=== PATIENT | female | born 1955 | race Caucasian/White ===

== ENCOUNTER → 2016-06-18 | Outpatient (CLI) | payer MEDICARE, OTHER ==
[~2016-06-18] MED LIST: ASPI1TAB PO; ATOR1TAB21 PO; CARV6.25 PO; CLOP75TA2 PO; FLUO20CA9 PO; LEVO75TA4 PO; LISI-542 PO; NEUR300C PO; RANO5TAB PO; TOPA100T8 PO; ZANA4TAB PO; ZONI25CA2 PO
--- NOTE | 2016-06-18 10:28 | REP ---
CT HEAD WITHOUT CONTRAST: HISTORY: Syrinx. Areas of decreased attentuation are present in the periventricular white matter. This represents small vessel ischemic disease. There is no intraparenchymal hemorrhage, mass, or midline shift. The ventricular system and cortical sulci as well as subarachnoid space in the posterior fossa are dilated consistent with mild volume loss. There is no extracerebral collection. The visualized sinuses are clear. The mastoid air cells are under developed. IMPRESSION: 1. Small vessel ischemic disease. 2. Mild volume loss. Signed by Kb Garcia MD 06/18/2016 10:38 A
== END ==
LOC: M RAD 09:36
PROVIDERS: ATTEND Neurological Surgery
DX: G95.0 Syringomyelia and syringobulbia (principal); I67.82 Cerebral ischemia; G31.9 Degenerative disease of nervous system, unspecified

== ENCOUNTER → 2016-06-18 | Outpatient (CLI) | payer MEDICARE, OTHER ==
[2016-06-18 11:07] LABS: BASO % 0.6 % (0.0-1.0); EOS # 0.3 K/mm3 (0.0-0.50); LARGE UNSTAINED CELL # 0.1 K/mm3 (0.0-0.4); LARGE UNSTAINED CELL % 1.9 % (0.0-4.0); LYMPH # 1.3 K/mm3 (1.5-4.5); LYMPH % 18.4 % (24.0-44.0); MEAN CORPUSCULAR HEMOGLOBIN 29.1 pg (27.0-33.0); MEAN CORPUSCULAR HGB CONC 32.8 g/dl (32.0-36.5); MEAN CORPUSCULAR VOLUME 88.9 fl (80.0-96.0); MONO # 0.3 K/mm3 (0.0-0.8); MONO % 3.6 % (0.0-5.0); NEUTROPHILS # 5.1 K/mm3 (1.8-7.7); NEUTROPHILS % 71.5 % (36.0-66.0); PLATELET COUNT, AUTOMATED 187 k/mm3 (150-450); RED CELL DISTRIBUTION WIDTH 12.9 % (11.5-14.5); WHITE BLOOD COUNT 7.2 K/mm3 (4.0-10.0)
[2016-06-18 11:43] LABS: ALBUMIN 3.6 GM/DL (3.2-5.2); ALBUMIN/GLOBULIN RATIO 1.06 (1.00-1.93); BILIRUBIN,TOTAL 0.4 MG/DL (0.2-1.0); CREATININE FOR GFR 1.14 MG/DL (0.55-1.02); GLOMERULAR FILTRATION RATE 51.2 (>45); POTASSIUM SERUM 4.1 MEQ/L (3.5-5.1); THYROXINE (T4) 8.5 UG/DL (4.5-12.0)
== END ==
LOC: M LAB 10:30
PROVIDERS: ATTEND Family Medicine
DX: I15.0 Renovascular hypertension (principal); E78.2 Mixed hyperlipidemia; E03.9 Hypothyroidism, unspecified; G95.0 Syringomyelia and syringobulbia; I67.82 Cerebral ischemia; G31.9 Degenerative disease of nervous system, unspecified

== ENCOUNTER 2016-07-17 22:48 | Emergency (ER) | payer MEDICARE, OTHER ==
[2016-07-17 23:27] LABS: BASO # 0.1 K/mm3 (0.0-0.2); BASO % 0.7 % (0.0-1.0); EOS # 0.2 K/mm3 (0.0-0.50); EOS % 2.3 % (0.0-3.0); LARGE UNSTAINED CELL # 0.2 K/mm3 (0.0-0.4); LARGE UNSTAINED CELL % 2.6 % (0.0-4.0); LYMPH # 1.7 K/mm3 (1.5-4.5); LYMPH % 18.1 % (24.0-44.0); MEAN CORPUSCULAR HEMOGLOBIN 28.6 pg (27.0-33.0); MEAN CORPUSCULAR HGB CONC 32.1 g/dl (32.0-36.5); MEAN CORPUSCULAR VOLUME 89.2 fl (80.0-96.0); MONO # 0.5 K/mm3 (0.0-0.8); MONO % 5.4 % (0.0-5.0); NEUTROPHILS # 6.7 K/mm3 (1.8-7.7); NEUTROPHILS % 70.9 % (36.0-66.0); PLATELET COUNT, AUTOMATED 212 k/mm3 (150-450); WHITE BLOOD COUNT 9.5 K/mm3 (4.0-10.0)
[2016-07-17] MEDS ORDERED: MORPHINE 4 MG/ML 1ML SYRINGE As Ordered ONE (23:35)
[2016-07-17] MEDS ORDERED: ONDANSETRON 4MG/2ML VIAL (J2405) As Ordered ONE (23:35)
[2016-07-17 23:39] LABS: ANION GAP 5 MEQ/L (8-16); BLOOD UREA NITROGEN 19 MG/DL (7-18); CALCIUM LEVEL 9.1 MG/DL (8.8-10.2); CARBON DIOXIDE LEVEL 34 MEQ/L (21-32); CHLORIDE LEVEL 104 MEQ/L (98-107); CREATININE FOR GFR 1.17 MG/DL (0.55-1.02); GLOMERULAR FILTRATION RATE 49.7 (>45); GLUCOSE, FASTING 136 MG/DL (80-110); POTASSIUM SERUM 4.3 MEQ/L (3.5-5.1); SODIUM LEVEL 143 MEQ/L (136-145)
--- NOTE | 2016-07-18 00:10 | REPUSA ---
Clinical history: Pain, swelling. Findings: The left common femoral, superficial femoral, popliteal, and other deep venous structures c ompress normally and demonstrate normal color Doppler flow. Normal venous waveforms with augmentation are seen. Impression: No evidence of deep vein thrombosis in the left femoral popliteal venous system.
[2016-07-18 00:30] LABS: VENOUS BASE EXCESS 3.9 (-2.0-2.0); VENOUS O2 SATURATION 57.6 % (60.0-80.0); VENOUS PARTIAL PRESSURE CO2 60.8 mmHg (38.0-50.0); VENOUS STANDARD HCO3 26.9 MEQ/L; VENOUS TOTAL CO2 33.3 MEQ/L (24.0-28.0)
--- NOTE | 2016-07-18 06:36 | EDDOCDS ---
Physician Documentation [facility] Name: Yasmin Calderón Age: 61 yrs Sex: Female : 1955 Arrival Date: 07/17/2016 Time: 22:48 Bed OBSERVATION Private MD: Disposition: 07/18/16 06:07 Discharged to Home/Self Care. Impression: Chest pain, unspecified. - Condition is Stable. - Discharge Instructions: Nonspecific Chest Pain, Chest Wall Pain, Nonspecific Chest Pain, [id number]. - Medication Reconciliation, Local Pharmacy Hours form. - Follow up: Fabian Alcala MD; When: 2 - 3 days; Reason: Continuance of care. - Problem is an acute exacerbation. - Symptoms have improved. Historical: - Allergies: no known allergies; - Home Meds: 1. aspirin 81 mg Oral tab 1 tab once daily 2. levothyroxine 75 mcg Oral tab 1 tab once daily 3. Neurontin 300 mg Oral cap 1 cap 3 times per day 4. atorvastatin 20 mg oral tab 1 tab once daily 5. lisinopril 20 mg oral tab 1 tab once daily 6. carvedilol 6.25 mg oral tab 1 tab 2 times per day 7. ranolazine 500 mg oral Tb12 1 tab 2 times per day 8. furosemide 20 mg Oral tab 1 tab once daily 9. fluoxetine 40 mg oral cap 1 cap once daily 10. amitriptyline 50 mg Oral tab 1 tab once daily 60 mg once a day/ 50 mg and a 10mg 11. Elavil 5 mg daily 12. clopidogrel 75 mg oral tab 1 tab once daily 13. hydroxyzine HCl 50 mg Oral tab twice a day 14. Tobrex 0.3 % Opht oint 2 times per day - PMHx: back pain; Hypertension; Hypothyroidism; CT; Migraine Headaches; Blowout fracture of right eye; - PSHx: Cardiac stents; - Social history: Smoking status: Patient states was never smoker of tobacco. No barriers to communication noted, The patient speaks fluent [place], Speaks appropriately for age. - Family history: Not pertinent. - : The pt / caregiver states he / she is on anticoagulants: Plavix. Home medication list is obtained from the patient. - Exposure Risk Screening:: None identified. Vital Signs: 07/17 23:01 BP 166 / 100; Pulse 88; Resp 16; Pulse Ox 96% on 2 lpm NC; Weight 94.8 kg / 209 lbs ld5 (R); Height 5 ft. 9 in. (175.26 cm) (R); Pain 6/10; 23:11 BP 154 / 89 (auto/); af2 23:12 Pulse 84 MON; Resp 18 S; Pulse Ox 97% on 2 lpm NC; af2 23:26 BP 156 / 87 (auto/); af2 23:27 Pulse 80 MON; Resp 18 S; Pulse Ox 97% on 2 lpm NC; af2 23:41 BP 140 / 78 (auto/); af2 23:43 Pulse 84 MON; Resp 18 S; Pulse Ox 96% on 2 lpm NC; af2 23:52 Temp 97.9(TE); af2 23:56 BP 143 / 73 (auto/); af2 23:57 Pulse 86 MON; Resp 18 S; Pulse Ox 90% on 2 lpm NC; af2 07/18 00:11 BP 143 / 78 (auto/); af2 00:12 Pulse 86 MON; Resp 18 S; Pulse Ox 95% on 2 lpm NC; af2 00:26 BP 140 / 74 (auto/); mlc 00:27 Pulse 84 MON; Resp 18 S; Pulse Ox 98% on R/A; mlc 00:41 BP 138 / 76 (auto/); mlc 00:42 Pulse 84 MON; Resp 18 S; Pulse Ox 96% on R/A; mlc 01:23 BP 114 / 74 (auto/); mlc 01:24 Pulse 82 MON; Resp 18 S; Pulse Ox 92% on R/A; mlc 03:38 BP 111 / 56 (auto/); af2 03:39 Pulse 86 MON; Resp 18 S; Pulse Ox 98% on R/A; af2 04:08 BP 116 / 67 (auto/); af2 04:09 Pulse 84 MON; Resp 18 S; Pulse Ox 99% on R/A; af2 04:38 BP 99 / 56 (auto/); af2 04:38 Pulse 86 MON; Resp 18 S; Pulse Ox 97% on R/A; af2 05:08 BP 106 / 64 (auto/); af2 05:08 Pulse 82 MON; Resp 18 S; Pulse Ox 98% on R/A; af2 05:38 BP 114 / 67 (auto/); af2 05:38 Pulse 80 MON; Resp 18 S; Pulse Ox 100% on R/A; af2 06:08 BP 121 / 73 (auto/); af2 06:09 Pulse 86 MON; Resp 18 S; Pulse Ox 97% on R/A; af2 06:27 BP 116 / 18; Pulse 84; Resp 18; Temp 97.0(O); Pulse Ox 99% on 2.0 lpm NC; Pain 0/10; kb5 07/17 23:01 Body Mass Index 30.86 (94.80 kg, 175.26 cm) ld5 MDM: 07/17 22:55 ECG WITH READING ER PHYS+CARDIAG ordered. EDMS 23:21 Manager Hris/Pulse Ox/q 30 min VS ordered. mm11 23:21 IV Saline Lock ordered. mm11 23:21 Oxygen at 4L/Min NC or Home dosage ordered. mm11 23:21 Rhythm Strip to chart ordered. mm11 23:21 Undress patient appropriately for examination ordered. mm11 23:21 morphine 4 mg IVP every 30 minutes; Document pain score/vitals after each dose (Hold if mm11 SBP < 90mmHg) x2 ordered. 23:21 Ondansetron 4 mg IVP once ordered. mm11 23:22 B-Type Natiuretic Peptide Ordered. EDMS 23:22 Basic Metabolic Profile Ordered. EDMS 23:22 CBC with Diff Ordered. EDMS 23:22 Cardiac Injury Profile Ordered. EDMS 23:22 Troponin Ordered. EDMS 23:22 portable chest Ordered. EDMS 23:24 DVT US Lower Ordered. EDMS 23:26 The patient was assigned to Observation Status due to uncertainty of mm11 diagnosis/disposition, and remained under my care. 23:49 Basic Metabolic Profile Reviewed. mm11 23:49 CBC with Diff Reviewed. mm11 23:49 B-Type Natiuretic Peptide Reviewed. mm11 23:49 Cardiac Injury Profile Reviewed. mm11 23:49 Troponin Reviewed. mm11 23:50 Venous Blood Gas (large pea green tube on ice) Ordered. EDMS 02 00:33 Venous Blood Gas (large pea green tube on ice) Reviewed. mm11 00:34 Financial registration complete. hs2 00:45 [facility] Payment Agreement was scanned into [email or web address] and attached to record. hs2 02:45 Repeat EKG (put time details section) ordered. mm11 02:45 Redraw CIP &Troponin (put time in details section) ordered. mm11 02:48 Redraw CIP &Troponin (put time in details section) complete. ml3 02:48 Repeat EKG (put time details section) complete. ml3 02:48 CARDIAC MARKER PANEL Ordered. EDMS 02:49 ECG WITH READING ER PHYS ordered. EDMS 05:39 CARDIAC MARKER PANEL Reviewed. mm11 05:39 DVT US Lower Reviewed. mm11 Administered Medications: 07/17 23:41 Drug: morphine 4 mg [morphine 4 mg/mL intravenous cartridge (1 mL)] Route: IVP; Site: af2 right antecubital; 07/18 00:21 Follow up: Response: Pain is decreased af2 07/17 23:42 Drug: Ondansetron 4 mg [ondansetron HCl 2 mg/mL intravenous solution (2 mL)] Route: af2 IVP; Site: right antecubital; 07/18 00:21 Follow up: Response: Pain is decreased af2 Signatures: Dispatcher [employer] EDMS Mason Ruby, Skull Splitter Unit ml3 Juarez Cooney, DO mm11 Amanda Beckman,RN RN ld5 Kellen Duncan RN RN af2 Gricelda Willoughby, Reg Reg hs2 The chart was reviewed and I authenticate all verbal orders and agree with the evaluation and treatment provided.Attachments: 00:45 [facility] Payment Agreement hs2 MTDD
--- NOTE | 2016-07-18 06:36 | EDDOCDS ---
Nurse's Notes [facility] Name: Yasmin Calderón Age: 61 yrs Sex: Female : 1955 Arrival Date: 07/17/2016 Time: 22:48 Bed OBSERVATION Private MD: Diagnosis: Chest pain, unspecified Presentation: 07/17 22:56 Presenting complaint: EMS states: Sudden onset of right-sided chest pain radiating to ld5 left side of chest while at rest. 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 Pain relieved after 2 nitro given by EMS. Pt reports some shortness of breath but states that is normal at nighttime. Aspirin was taken PACKING CLERK. Suicide/Homicide risk assessment- the patient denies having any suicidal and/or homicidal ideations and does not present with any other emotional, behavioral or mental health complaints. 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 Transition of care: patient was not received from another setting of care. Care prior to arrival: Medications administered prior to arrival: 324 mg of ASA, 2 nitros IV initiated. Glucose check. 145 Oxygen administered by EMS. 22:56 Acuity: RADHA Level 2 ld5 22:56 Method Of Arrival: Ambulance ld5 07/18 06:34 Adult Sepsis Screening: The patient does not have new or worsening altered mentation. af2 Patient's respiratory rate is less than 22. Systolic blood pressure is greater than 100. Patient has a qSOFA score of 0- Negative Sepsis Screen. Triage Assessment: 07/17 23:01 General: Appears in no apparent distress. Pain: Location: forehead Pain currently is 6 ld5 out of 10 on a pain scale. HIV screening NA for this visit Offered previously. Neurological: Level of Consciousness is awake, alert. Cardiovascular: Chest pain none currently, resolved after 2 nitro given en route. Respiratory: Airway is patent Respiratory effort is even, unlabored. GI: Reports nausea. 07/18 06:34 Cardiovascular: Chest pain is denied episodes. af2 Historical: - Allergies: no known allergies; - Home Meds: 1. aspirin 81 mg Oral tab 1 tab once daily 2. levothyroxine 75 mcg Oral tab 1 tab once daily 3. Neurontin 300 mg Oral cap 1 cap 3 times per day 4. atorvastatin 20 mg oral tab 1 tab once daily 5. lisinopril 20 mg oral tab 1 tab once daily 6. carvedilol 6.25 mg oral tab 1 tab 2 times per day 7. ranolazine 500 mg oral Tb12 1 tab 2 times per day 8. furosemide 20 mg Oral tab 1 tab once daily 9. fluoxetine 40 mg oral cap 1 cap once daily 10. amitriptyline 50 mg Oral tab 1 tab once daily 60 mg once a day/ 50 mg and a 10mg 11. Elavil 5 mg daily 12. clopidogrel 75 mg oral tab 1 tab once daily 13. hydroxyzine HCl 50 mg Oral tab twice a day 14. Tobrex 0.3 % Opht oint 2 times per day - PMHx: back pain; Hypertension; Hypothyroidism; ND; Migraine Headaches; Blowout fracture of right eye; - PSHx: Cardiac stents; - Social history: Smoking status: Patient states was never smoker of tobacco. No barriers to communication noted, The patient speaks fluent Tuvaluan, Speaks appropriately for age. - Family history: Not pertinent. - : The pt / caregiver states he / she is on anticoagulants: Plavix. Home medication list is obtained from the patient. - Exposure Risk Screening:: None identified. Screenin/09 23:27 Screening information is obtained from the patient. Fall risk: At risk due to age, The af2 following interventions are performed due to a positive Fall Risk Screen: Fall Risk is added to Special Handling on the patient Summary Screen. A Fall Risk Bracelet was applied to the patient. Side Rails are placed in the up position. A Call L[place] is given with instruction to call for help when getting out of bed. Assistance ADL's: requires no assistance with activities of daily living. Abuse/DV Screen: The patient / caregiver reports he/she is: not in a situation that causes fear, pain or injury. Nutritional screening: No deficits noted. Advance Directives: Currently, there is no health care proxy. home support is adequate. Assessment: 23:28 General: Appears in no apparent distress, Behavior is cooperative. Neurological: Level af2 of Consciousness is awake, alert, obeys commands, Oriented to person, place, time. Cardiovascular: Capillary refill < 3 seconds in bilateral fingers Heart tones S1 S2 present Pulses are 2+ in right radial artery and left radial artery Rhythm is sinus rhythm No ectopy. Chest pain is described as mild, is located in chest wall began 2 hours prior to arrival. Respiratory: Airway is patent Respiratory effort is even, unlabored, Respiratory pattern is regular, symmetrical, Breath sounds are diminished bilaterally. Derm: Skin is normal. 07/18 00:30 General: Appears in no apparent distress, Behavior is cooperative, pt resting quietly af2 with eyes closed, resp easy and unlabored. reports chest pain tolerable, 5/10.. Cardiovascular: Rhythm is sinus rhythm No ectopy. Respiratory: Airway is patent Respiratory effort is even, unlabored. Derm: Skin is normal. 01:46 General: Appears in no apparent distress, Behavior is cooperative, pt resting quietly af2 on stretcher. offers no complaints. . Neurological: Level of Consciousness is awake, alert, obeys commands, Oriented to person, place, time. Cardiovascular: Rhythm is sinus rhythm No ectopy. Respiratory: Airway is patent Respiratory effort is even, unlabored. Derm: Skin is normal. 02:56 General: Appears in no apparent distress, Behavior is appropriate for age, cooperative. mlc Neurological: Level of Consciousness is awake, alert, obeys commands, Oriented to person, place, time. Cardiovascular: Rhythm is sinus rhythm No ectopy. Respiratory: Airway is patent Respiratory effort is even, unlabored. Derm: Skin is normal. 03:41 General: pt resting quietly on stretcher. resp easy, unlabored. will continue to af2 monitor. . Cardiovascular: Rhythm is sinus rhythm. Derm: Skin is pink, warm & dry. 04:45 General: Appears in no apparent distress, Behavior is appropriate for age, cooperative. af2 Neurological: Level of Consciousness is awake, alert, obeys commands, Oriented to person, place, time. Cardiovascular: Rhythm is sinus rhythm No ectopy. Respiratory: Airway is patent Respiratory effort is even, unlabored. Derm: Skin is normal. 06:00 General: Appears in no apparent distress, Behavior is appropriate for age, cooperative. af2 Neurological: Level of Consciousness is awake, alert, obeys commands, Oriented to person, place, time. Respiratory: Airway is patent Respiratory effort is even, unlabored. Derm: Skin is pink, warm & dry. Vital Signs: 07/17 23:01 BP 166 / 100; Pulse 88; Resp 16; Pulse Ox 96% on 2 lpm NC; Weight 94.8 kg (R); Height 5 ld5 ft. 9 in. (175.26 cm) (R); Pain 6/10; 23:11 BP 154 / 89 (auto/); af2 23:12 Pulse 84 MON; Resp 18 S; Pulse Ox 97% on 2 lpm NC; af2 23:26 BP 156 / 87 (auto/); af2 23:27 Pulse 80 MON; Resp 18 S; Pulse Ox 97% on 2 lpm NC; af2 23:41 BP 140 / 78 (auto/); af2 23:43 Pulse 84 MON; Resp 18 S; Pulse Ox 96% on 2 lpm NC; af2 23:52 Temp 97.9(TE); af2 23:56 BP 143 / 73 (auto/); af2 23:57 Pulse 86 MON; Resp 18 S; Pulse Ox 90% on 2 lpm NC; af2 07/18 00:11 BP 143 / 78 (auto/); af2 00:12 Pulse 86 MON; Resp 18 S; Pulse Ox 95% on 2 lpm NC; af2 00:26 BP 140 / 74 (auto/); mlc 00:27 Pulse 84 MON; Resp 18 S; Pulse Ox 98% on R/A; mlc 00:41 BP 138 / 76 (auto/); mlc 00:42 Pulse 84 MON; Resp 18 S; Pulse Ox 96% on R/A; mlc 01:23 BP 114 / 74 (auto/); mlc 01:24 Pulse 82 MON; Resp 18 S; Pulse Ox 92% on R/A; mlc 03:38 BP 111 / 56 (auto/); af2 03:39 Pulse 86 MON; Resp 18 S; Pulse Ox 98% on R/A; af2 04:08 BP 116 / 67 (auto/); af2 04:09 Pulse 84 MON; Resp 18 S; Pulse Ox 99% on R/A; af2 04:38 BP 99 / 56 (auto/); af2 04:38 Pulse 86 MON; Resp 18 S; Pulse Ox 97% on R/A; af2 05:08 BP 106 / 64 (auto/); af2 05:08 Pulse 82 MON; Resp 18 S; Pulse Ox 98% on R/A; af2 05:38 BP 114 / 67 (auto/); af2 05:38 Pulse 80 MON; Resp 18 S; Pulse Ox 100% on R/A; af2 06:08 BP 121 / 73 (auto/); af2 06:09 Pulse 86 MON; Resp 18 S; Pulse Ox 97% on R/A; af2 06:27 BP 116 / 18; Pulse 84; Resp 18; Temp 97.0(O); Pulse Ox 99% on 2.0 lpm NC; Pain 0/10; kb5 07/17 23:01 Body Mass Index 30.86 (94.80 kg, 175.26 cm) ld5 Vitals: 07/17 23:01 Log In Time N/A - ambulance arrival. ld5 ED Course: 22:49 Patient visited by Mason Ruby, Caving Guide. ml3 22:49 Patient moved to Waiting ml3 22:50 Kellen Duncan RN is Primary Nurse. ml3 22:50 Patient moved to 14 ml3 23:00 Triage Initiated ld5 23:04 Patient visited by Amanda Beckman RN. ld5 23:07 Juarez Cooney DO is Attending Physician. mm11 23:09 Patient visited by Kiya Yadav PCA. cln 23:09 EKG done. (by ED staff). Reviewed by Juarez Cooney DO. cln 23:12 Patient visited by Kellen Duncan RN. af2 23:19 Patient visited by Juarez Cooney DO. mm11 23:26 Patient moved to OBSERVATION mm11 23:27 The patient / caregiver is instructed regarding the plan of care and ED course. Patient af2 has correct armband on for positive identification. Placed in gown. balance engineer on. Pulse ox on. NIBP on. 23:27 Inserted saline lock: 18 gauge in right antecubital area and blood collected. The af2 patient tolerated the procedure well. No procedures done that require assistance. 23:53 Patient visited by Kellen Duncan RN. af2 07/18 00:21 Venous Blood Gas (large pea green tube on ice) Sent. af2 00:24 Patient visited by Kellen Duncan RN. af2 00:41 DVT US Lower Returned. EDMS 00:45 DC-EM Payment Agreement was scanned into [employer] and attached to record. hs2 01:24 Patient visited by Kellen Duncan RN. af2 01:47 Patient visited by Kellen Duncan RN. af2 02:58 Patient visited by Delma Perez RN. mlc 03:41 Patient visited by Kellen Duncan RN. af2 05:03 Patient visited by Kiya Yadav PCA. cln 05:03 EKG done. (by ED staff). Reviewed by Juarez Cooney DO. cln 06:06 Fabian Alcala MD is Referral Physician. mm11 06:28 Patient visited by Kellen Duncan RN. af2 06:28 Patient visited by Toño Patel PCA. kb5 Administered Medications: 07/17 23:41 Drug: morphine 4 mg [morphine 4 mg/mL intravenous cartridge (1 mL)] Route: IVP; Site: af2 right antecubital; 07/18 00:21 Follow up: Response: Pain is decreased af2 07/17 23:42 Drug: Ondansetron 4 mg [ondansetron HCl 2 mg/mL intravenous solution (2 mL)] Route: af2 IVP; Site: right antecubital; 07/18 00:21 Follow up: Response: Pain is decreased af2 Order Results: Lab Order: B-Type Natiuretic Peptide; SPEC'M 07/17/16 23:00 Test: BRAIN NATRIURETIC PEPTIDE; Value: 22.3; Range: <100; Units: PG/ML; Status: F Lab Order: Basic Metabolic Profile; SPEC'M 07/17/16 23:00 Test: GLUCOSE, FASTING; Value: 136; Range: 80-110; Abnormal: Above high normal; Units: MG/DL; Status: F Test: BLOOD UREA NITROGEN; Value: 19; Range: 7-18; Abnormal: Above high normal; Units: MG/DL; Status: F Test: CREATININE FOR GFR; Value: 1.17; Range: 0.55-1.02; Abnormal: Above high normal; Units: MG/DL; Status: F Test: GLOMERULAR FILTRATION RATE; Value: 49.7; Range: >45; Status: F Test: SODIUM LEVEL; Value: 143; Range: 136-145; Units: MEQ/L; Status: F Test: POTASSIUM SERUM; Value: 4.3; Range: 3.5-5.1; Units: MEQ/L; Status: F Test: CHLORIDE LEVEL; Value: 104; Range: 98-107; Units: MEQ/L; Status: F Test: CARBON DIOXIDE LEVEL; Value: 34; Range: 21-32; Abnormal: Above high normal; Units: MEQ/L; Status: F Test: ANION GAP; Value: 5; Range: 8-16; Abnormal: Below low normal; Units: MEQ/L; Status: F Test: CALCIUM LEVEL; Value: 9.1; Range: 8.8-10.2; Units: MG/DL; Status: F Test Note: ; Units are mL/min/1.73 m2 Chronic Kidney Disease Staging per NKF: Stage I & II GFR >=60 Normal to Mildly Decreased Stage III GFR 30-59 Moderately Decreased Stage IV GFR 15-29 Severely Decreased Stage V GFR <15 Very Little GFR Left ESRD GFR <15 on WARDROBE MISTRESS Lab Order: CBC with Diff; SPEC'M 07/17/16 23:00 Test: WHITE BLOOD COUNT; Value: 9.5; Range: 4.0-10.0; Units: K/mm3; Status: F Test: RED BLOOD COUNT; Value: 4.70; Range: 4.00-5.40; Units: M/mm3; Status: F Test: HEMOGLOBIN; Value: 13.5; Range: 12.0-16.0; Units: g/dl; Status: F Test: HEMATOCRIT; Value: 42.0; Range: 36.0-47.0; Units: %; Status: F Test: MEAN CORPUSCULAR VOLUME; Value: 89.2; Range: 80.0-96.0; Units: fl; Status: F Test: MEAN CORPUSCULAR HEMOGLOBIN; Value: 28.6; Range: 27.0-33.0; Units: pg; Status: F Test: MEAN CORPUSCULAR HGB CONC; Value: 32.1; Range: 32.0-36.5; Units: g/dl; Status: F Test: RED CELL DISTRIBUTION WIDTH; Value: 13.0; Range: 11.5-14.5; Units: %; Status: F Test: PLATELET COUNT, AUTOMATED; Value: 212; Range: 150-450; Units: k/mm3; Status: F Test: NEUTROPHILS %; Value: 70.9; Range: 36.0-66.0; Abnormal: Above high normal; Units: %; Status: F Test: LYMPH %; Value: 18.1; Range: 24.0-44.0; Abnormal: Below low normal; Units: %; Status: F Test: MONO %; Value: 5.4; Range: 0.0-5.0; Abnormal: Above high normal; Units: %; Status: F Test: EOS %; Value: 2.3; Range: 0.0-3.0; Units: %; Status: F Test: BASO %; Value: 0.7; Range: 0.0-1.0; Units: %; Status: F Test: LARGE UNSTAINED CELL %; Value: 2.6; Range: 0.0-4.0; Units: %; Status: F Test: NEUTROPHILS #; Value: 6.7; Range: 1.8-7.7; Units: K/mm3; Status: F Test: LYMPH #; Value: 1.7; Range: 1.5-4.5; Units: K/mm3; Status: F Test: MONO #; Value: 0.5; Range: 0.0-0.8; Units: K/mm3; Status: F Test: EOS #; Value: 0.2; Range: 0.0-0.50; Units: K/mm3; Status: F Test: BASO #; Value: 0.1; Range: 0.0-0.2; Units: K/mm3; Status: F Test: LARGE UNSTAINED CELL #; Value: 0.2; Range: 0.0-0.4; Units: K/mm3; Status: F Lab Order: Cardiac Injury Profile; SPEC'M 07/17/16 23:00 Test: CPK CREATINE PHOSPHOKINASE; Value: 109; Range: 26-192; Units: U/L; Status: F Test: CK-MB VALUE MASS; Value: 1.9; Range: 0.0-3.6; Units: NG/ML; Status: F Test: MB/CK RELATIVE INDEX; Value: 1.74; Range: < OR =4; Status: F Test Note: ; DIAGNOSIS CRITERIA MMB ng/ml Relative Index (RI) NON-AMI < or = 5 N/A BLANCO ZONE > 5 < or = 4 AMI > 5 > 4 Lab Order: Troponin; SPEC'M 07/17/16 23:00 Test: TROPONIN I; Value: < 0.02; Range: < 0.10; Units: NG/ML; Status: F Test Note: ; Troponin I Reference Interval for Siemens This Week In LOCI: 99th Percentile= 0.00-0.045 ng/ml Risk Stratification: <= 0.10 ng/ml Decreased Risk for Adverse Clinical Events. 0.10-1.50 ng/ml Increased Risk for Adverse Clinical Events. Evaluation of additional criterion and/or repeat testing in 2-6 hours is suggested to rule out myocardial damage. >= 1.50 ng/ml Indicative of Myocardial Injury. Lab Order: Venous Blood Gas (large pea green tube on ice); [facility]' 07/18/16 00:18 Test: VENOUS PH; Value: 7.332; Range: 7.330-7.430; Units: UNITS; Status: F Test: VENOUS PARTIAL PRESSURE CO2; Value: 60.8; Range: 38.0-50.0; Abnormal: Above high normal; Units: mmHg; Status: F Test: VENOUS PARTIAL PRESSURE O2; Value: 33.0; Range: 30.0-50.0; Units: mmHg; Status: F Test: VENOUS TOTAL CO2; Value: 33.3; Range: 24.0-28.0; Abnormal: Above high normal; Units: MEQ/L; Status: F Test: VENOUS HCO3; Value: 31.5; Range: 23.0-27.0; Abnormal: Above high normal; Units: MEQ/L; Status: F Test: VENOUS BASE EXCESS; Value: 3.9; Range: -2.0-2.0; Abnormal: Above high normal; Status: F Test: VENOUS STANDARD HCO3; Value: 26.9; Units: MEQ/L; Status: F Test: VENOUS O2 SATURATION; Value: 57.6; Range: 60.0-80.0; Abnormal: Below low normal; Units: %; Status: F Lab Order: CARDIAC MARKER PANEL; [facility]' 07/18/16 05:03 Test: CPK CREATINE PHOSPHOKINASE; Value: 79; Range: 26-192; Units: U/L; Status: F Test: CK-MB VALUE MASS; Value: 2.3; Range: 0.0-3.6; Units: NG/ML; Status: F Test: MB/CK RELATIVE INDEX; Value: 2.91; Range: < OR =4; Status: F Test: TROPONIN I; Value: < 0.02; Range: < 0.10; Units: NG/ML; Status: F Test Note: ; DIAGNOSIS CRITERIA MMB ng/ml Relative Index (RI) NON-AMI < or = 5 N/A BLANCO ZONE > 5 < or = 4 AMI > 5 > 4 Radiology Order: DVT US Lower Test: DVT US Lower REASON FOR EXAMINATION: Deformity/Swelling; ; Clinical history: Pain, swelling.; Findings: The left common femoral, superficial femoral, popliteal, and other deep venous structures c; ompress normally and demonstrate normal color Doppler flow. Normal venous waveforms with augmentation; are seen.; Impression:; No evidence of deep vein thrombosis in the left femoral popliteal venous system.; ; Outcome: 06:07 Discharge ordered by Provider. mm11 06:33 Discharge Assessment: Patient awake, alert and oriented x 3. No cognitive and/or af2 functional deficits noted. Patient verbalized understanding of disposition instructions. patient administered narcotics - no. Discharge Assessment: patient administered narcotics - yes. Pt provided with safe discharge. The following High Risk Discharge criteria are identified: None. Discharged to home ambulatory, with significant other. Condition: stable. Discharge instructions given to patient, Instructed on discharge instructions, follow up and referral plans. medication usage, no driving heavy equipment, no drinking with medication, Demonstrated understanding of instructions, medications, Pt was receptive of discharge instructions/ teaching. No special radiology studies were completed. Property :Personal belongings accompany Pt. 06:34 Patient left the ED. af2 Signatures: Dispatcher [employer] EDMS Mason Ruby, Caving Guide Unit ml3 Toño Patel, AIRPLANE PILOT HELPER AIRPLANE PILOT HELPER kb5 Juarez Cooney, DO DO mm11 Amanda Beckman RN RN ld5 Delma Perez RN RN mlc [place]on, Amber, RN RN af2 Gricelda Willoughby, Reg Reg hs2 Kiya Yadav, AIRPLANE PILOT HELPER AIRPLANE PILOT HELPER cln Corrections: (The following items were deleted from the chart) 07/17 23:00 22:53 Presenting complaint: ld5 ld5 MTDD
--- NOTE | 2016-07-18 08:29 | REP ---
AP chest x-ray: Single view. History: Chest pain. Comparison study October 17, 2014. Findings: EKG electrodes are seen. Lungs are symmetrically aerated and clear. Heart size is normal. Pulmonary vasculature is not increased. No significant bony abnormality is seen. Impression: No active disease. Signed by Javier Rios MD 07/18/2016 09:29 A
--- NOTE | 2016-07-18 21:20 | ECGEPIP ---
Stationary ECG Study [facility] - ED Test Date: 2016-07-17 Pat Name: KISHOR JOLLEY Department: Room: - Gender: F Screen Tender: nikita : 1955 Requested By: АННА Mckinney Order Number: [id number] Reading MD: Shahida Menon Measurements Intervals [place] Rate: 83 P: 36 IA: 153 QRS: -29 QRSD: 89 T: 19 QT: 403 QTc: 476 Interpretive Statements SINUS RHYTHM WITH SINUS ARRHYTHMIA BORDERLINE LEFT AXIS DEVIATION MODERATE VOLTAGE CRITERIA FOR LVH, CONSIDER NORMAL VARIANT PRWP NSTTW ABNORMALITY SIMILAR 07/24/15 Electronically Signed On 07-18-2016 21:20:08 EST by Shahida Menon
--- NOTE | 2016-07-18 21:25 | ECGEPIP ---
Stationary ECG Study [facility] - ED Test Date: 2016-07-18 Pat Name: KISHOR JOLLEY Department: Room: - Gender: F Curer Foam Rubber: nikita : 1955 Requested By: АННА Mckinney Order Number: [id number] Reading MD: Shahida Menon Measurements Intervals [place] Rate: 84 P: 38 NM: 164 QRS: -29 QRSD: 87 T: 9 QT: 408 QTc: 484 Interpretive Statements SINUS RHYTHM BORDERLINE LEFT AXIS DEVIATION MINIMAL VOLTAGE CRITERIA FOR LVH, CONSIDER NORMAL VARIANT NSTTW ABNORMLAITY SIMILAR 07/17/16 Electronically Signed On 07-18-2016 21:24:47 EST by Shahida Menon
--- NOTE | 2016-07-20 07:36 | EDDOCDS ---
Nurse's Notes [facility] Name: Yasmin Calderón Age: 61 yrs Sex: Female : 1955 Arrival Date: 07/17/2016 Time: 22:48 Bed OBSERVATION Private MD: Diagnosis: Chest pain, unspecified Presentation: 07/17 22:56 Presenting complaint: EMS states: Sudden onset of right-sided chest pain radiating to ld5 left side of chest while at rest. 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 Pain relieved after 2 nitro given by EMS. Pt reports some shortness of breath but states that is normal at nighttime. 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 Suicide/Homicide risk assessment- the patient denies having any suicidal and/or homicidal ideations and does not present with any other emotional, behavioral or mental health complaints. Status: Patient is not a automotive service cashier or dependent. Transition of care: patient was not received from another setting of care. Care prior to arrival: Medications administered prior to arrival: 324 mg of ASA, 2 nitros IV initiated. Glucose check. 145 Oxygen administered by EMS. 22:56 Acuity: RADHA Level 2 ld5 22:56 Method Of Arrival: Ambulance ld5 07/18 06:34 Adult Sepsis Screening: The patient does not have new or worsening altered mentation. af2 Patient's respiratory rate is less than 22. Systolic blood pressure is greater than 100. Patient has a qSOFA score of 0- Negative Sepsis Screen. Triage Assessment: 07/17 23:01 General: Appears in no apparent distress. Pain: Location: forehead Pain currently is 6 ld5 out of 10 on a pain scale. HIV screening NA for this visit Offered previously. Neurological: Level of Consciousness is awake, alert. Cardiovascular: Chest pain none currently, resolved after 2 nitro given en route. Respiratory: Airway is patent Respiratory effort is even, unlabored. GI: Reports nausea. 07/18 06:34 Cardiovascular: Chest pain is denied episodes. af2 Historical: - Allergies: no known allergies; - Home Meds: 1. aspirin 81 mg Oral tab 1 tab once daily 2. levothyroxine 75 mcg Oral tab 1 tab once daily 3. Neurontin 300 mg Oral cap 1 cap 3 times per day 4. atorvastatin 20 mg oral tab 1 tab once daily 5. lisinopril 20 mg oral tab 1 tab once daily 6. carvedilol 6.25 mg oral tab 1 tab 2 times per day 7. ranolazine 500 mg oral Tb12 1 tab 2 times per day 8. furosemide 20 mg Oral tab 1 tab once daily 9. fluoxetine 40 mg oral cap 1 cap once daily 10. amitriptyline 50 mg Oral tab 1 tab once daily 60 mg once a day/ 50 mg and a 10mg 11. Elavil 5 mg daily 12. clopidogrel 75 mg oral tab 1 tab once daily 13. hydroxyzine HCl 50 mg Oral tab twice a day 14. Tobrex 0.3 % Opht oint 2 times per day - PMHx: back pain; Hypertension; Hypothyroidism; OK; Migraine Headaches; Blowout fracture of right eye; - PSHx: Cardiac stents; - Social history: Smoking status: Patient states was never smoker of tobacco. No barriers to communication noted, The patient speaks fluent Icelandic, Speaks appropriately for age. - Family history: Not pertinent. - : The pt / caregiver states he / she is on anticoagulants: Plavix. Home medication list is obtained from the patient. - Exposure Risk Screening:: None identified. Screenin/09 23:27 Screening information is obtained from the patient. Fall risk: At risk due to age, The af2 following interventions are performed due to a positive Fall Risk Screen: Fall Risk is added to Special Handling on the patient Summary Screen. A Fall Risk Bracelet was applied to the patient. Side Rails are placed in the up position. A Call [place] is given with instruction to call for help when getting out of bed. Assistance ADL's: requires no assistance with activities of daily living. Abuse/DV Screen: The patient / caregiver reports he/she is: not in a situation that causes fear, pain or injury. Nutritional screening: No deficits noted. Advance Directives: Currently, there is no health care proxy. home support is adequate. Assessment: 23:28 General: Appears in no apparent distress, Behavior is cooperative. Neurological: Level af2 of Consciousness is awake, alert, obeys commands, Oriented to person, place, time. Cardiovascular: Capillary refill < 3 seconds in bilateral fingers Heart tones S1 S2 present Pulses are 2+ in right radial artery and left radial artery Rhythm is sinus rhythm No ectopy. Chest pain is described as mild, is located in chest wall began 2 hours prior to arrival. Respiratory: Airway is patent Respiratory effort is even, unlabored, Respiratory pattern is regular, symmetrical, Breath sounds are diminished bilaterally. Derm: Skin is normal. 07/18 00:30 General: Appears in no apparent distress, Behavior is cooperative, pt resting quietly af2 with eyes closed, resp easy and unlabored. reports chest pain tolerable, 5/10.. Cardiovascular: Rhythm is sinus rhythm No ectopy. Respiratory: Airway is patent Respiratory effort is even, unlabored. Derm: Skin is normal. 01:46 General: Appears in no apparent distress, Behavior is cooperative, pt resting quietly af2 on stretcher. offers no complaints. . Neurological: Level of Consciousness is awake, alert, obeys commands, Oriented to person, place, time. Cardiovascular: Rhythm is sinus rhythm No ectopy. Respiratory: Airway is patent Respiratory effort is even, unlabored. Derm: Skin is normal. 02:56 General: Appears in no apparent distress, Behavior is appropriate for age, cooperative. mlc Neurological: Level of Consciousness is awake, alert, obeys commands, Oriented to person, place, time. Cardiovascular: Rhythm is sinus rhythm No ectopy. Respiratory: Airway is patent Respiratory effort is even, unlabored. Derm: Skin is normal. 03:41 General: pt resting quietly on stretcher. resp easy, unlabored. will continue to af2 monitor. . Cardiovascular: Rhythm is sinus rhythm. Derm: Skin is pink, warm & dry. 04:45 General: Appears in no apparent distress, Behavior is appropriate for age, cooperative. af2 Neurological: Level of Consciousness is awake, alert, obeys commands, Oriented to person, place, time. Cardiovascular: Rhythm is sinus rhythm No ectopy. Respiratory: Airway is patent Respiratory effort is even, unlabored. Derm: Skin is normal. 06:00 General: Appears in no apparent distress, Behavior is appropriate for age, cooperative. af2 Neurological: Level of Consciousness is awake, alert, obeys commands, Oriented to person, place, time. Respiratory: Airway is patent Respiratory effort is even, unlabored. Derm: Skin is pink, warm & dry. Vital Signs: 07/17 23:01 BP 166 / 100; Pulse 88; Resp 16; Pulse Ox 96% on 2 lpm NC; Weight 94.8 kg (R); Height 5 ld5 ft. 9 in. (175.26 cm) (R); Pain 6/10; 23:11 BP 154 / 89 (auto/); af2 23:12 Pulse 84 MON; Resp 18 S; Pulse Ox 97% on 2 lpm NC; af2 23:26 BP 156 / 87 (auto/); af2 23:27 Pulse 80 MON; Resp 18 S; Pulse Ox 97% on 2 lpm NC; af2 23:41 BP 140 / 78 (auto/); af2 23:43 Pulse 84 MON; Resp 18 S; Pulse Ox 96% on 2 lpm NC; af2 23:52 Temp 97.9(TE); af2 23:56 BP 143 / 73 (auto/); af2 23:57 Pulse 86 MON; Resp 18 S; Pulse Ox 90% on 2 lpm NC; af2 07/18 00:11 BP 143 / 78 (auto/); af2 00:12 Pulse 86 MON; Resp 18 S; Pulse Ox 95% on 2 lpm NC; af2 00:26 BP 140 / 74 (auto/); mlc 00:27 Pulse 84 MON; Resp 18 S; Pulse Ox 98% on R/A; mlc 00:41 BP 138 / 76 (auto/); mlc 00:42 Pulse 84 MON; Resp 18 S; Pulse Ox 96% on R/A; mlc 01:23 BP 114 / 74 (auto/); mlc 01:24 Pulse 82 MON; Resp 18 S; Pulse Ox 92% on R/A; mlc 03:38 BP 111 / 56 (auto/); af2 03:39 Pulse 86 MON; Resp 18 S; Pulse Ox 98% on R/A; af2 04:08 BP 116 / 67 (auto/); af2 04:09 Pulse 84 MON; Resp 18 S; Pulse Ox 99% on R/A; af2 04:38 BP 99 / 56 (auto/); af2 04:38 Pulse 86 MON; Resp 18 S; Pulse Ox 97% on R/A; af2 05:08 BP 106 / 64 (auto/); af2 05:08 Pulse 82 MON; Resp 18 S; Pulse Ox 98% on R/A; af2 05:38 BP 114 / 67 (auto/); af2 05:38 Pulse 80 MON; Resp 18 S; Pulse Ox 100% on R/A; af2 06:08 BP 121 / 73 (auto/); af2 06:09 Pulse 86 MON; Resp 18 S; Pulse Ox 97% on R/A; af2 06:27 BP 116 / 18; Pulse 84; Resp 18; Temp 97.0(O); Pulse Ox 99% on 2.0 lpm NC; Pain 0/10; kb5 07/17 23:01 Body Mass Index 30.86 (94.80 kg, 175.26 cm) ld5 Vitals: 07/17 23:01 Log In Time N/A - ambulance arrival. ld5 ED Course: 22:49 Patient visited by Mason Ruby, Skidway Worker. ml3 22:49 Patient moved to Waiting ml3 22:50 Kellen Duncan RN is Primary Nurse. ml3 22:50 Patient moved to 14 ml3 23:00 Triage Initiated ld5 23:04 Patient visited by Amanda Beckman RN. ld5 23:07 Анна Cooney DO is Attending Physician. mm11 23:09 Patient visited by Kiya Yadav PCA. cln 23:09 EKG done. (by ED staff). Reviewed by Анна Cooney DO. cln 23:12 Patient visited by Kellen Duncan RN. af2 23:19 Patient visited by Анна Cooney DO. mm11 23:26 Patient moved to OBSERVATION mm11 23:27 The patient / caregiver is instructed regarding the plan of care and ED course. Patient af2 has correct armband on for positive identification. Placed in gown. edging catcher on. Pulse ox on. NIBP on. 23:27 Inserted saline lock: 18 gauge in right antecubital area and blood collected. The af2 patient tolerated the procedure well. No procedures done that require assistance. 23:53 Patient visited by Kellen Duncan RN. af2 07/18 00:21 Venous Blood Gas (large pea green tube on ice) Sent. af2 00:24 Patient visited by Kellen Duncan RN. af2 00:41 DVT US Lower Returned. EDMS 00:45 ME-EM Payment Agreement was scanned into [employer] and attached to record. hs2 01:24 Patient visited by Kellen Duncan RN. af2 01:47 Patient visited by Kellen Duncan RN. af2 02:58 Patient visited by Delma Perez RN. mlc 03:41 Patient visited by Kellen Duncan RN. af2 05:03 Patient visited by Kiya Yadav, ELISE. cln 05:03 EKG done. (by ED staff). Reviewed by Анна Cooney DO. cln 06:06 Fabian Alcala MD is Referral Physician. mm11 06:28 Patient visited by Kellen Duncan RN. af2 06:28 Patient visited by Toño Patel, ELISE. kb5 08:47 portable chest Returned. EDMS 12:35 T-Sheet-- Draft Copy was scanned into [employer] and attached to record. gb 12:35 Trend VS was scanned into [employer] and attached to record. gb 14:56 PCR was scanned into [employer] and attached to record. gb 22:16 EKG-ADULT Returned. EDMS 22:16 ECG WITH READING ER PHYS Returned. EDMS Administered Medications: 07/17 23:41 Drug: morphine 4 mg [morphine 4 mg/mL intravenous cartridge (1 mL)] Route: IVP; Site: af2 right antecubital; 07/18 00:21 Follow up: Response: Pain is decreased af2 07/17 23:42 Drug: Ondansetron 4 mg [ondansetron HCl 2 mg/mL intravenous solution (2 mL)] Route: af2 IVP; Site: right antecubital; 07/18 00:21 Follow up: Response: Pain is decreased af2 Attachments: 12:35 Trend VS gb Order Results: Lab Order: B-Type Natiuretic Peptide; SPEC'M 07/17/16 23:00 Test: BRAIN NATRIURETIC PEPTIDE; Value: 22.3; Range: <100; Units: PG/ML; Status: F Lab Order: Basic Metabolic Profile; SPEC'M 07/17/16 23:00 Test: GLUCOSE, FASTING; Value: 136; Range: 80-110; Abnormal: Above high normal; Units: MG/DL; Status: F Test: BLOOD UREA NITROGEN; Value: 19; Range: 7-18; Abnormal: Above high normal; Units: MG/DL; Status: F Test: CREATININE FOR GFR; Value: 1.17; Range: 0.55-1.02; Abnormal: Above high normal; Units: MG/DL; Status: F Test: GLOMERULAR FILTRATION RATE; Value: 49.7; Range: >45; Status: F Test: SODIUM LEVEL; Value: 143; Range: 136-145; Units: MEQ/L; Status: F Test: POTASSIUM SERUM; Value: 4.3; Range: 3.5-5.1; Units: MEQ/L; Status: F Test: CHLORIDE LEVEL; Value: 104; Range: 98-107; Units: MEQ/L; Status: F Test: CARBON DIOXIDE LEVEL; Value: 34; Range: 21-32; Abnormal: Above high normal; Units: MEQ/L; Status: F Test: ANION GAP; Value: 5; Range: 8-16; Abnormal: Below low normal; Units: MEQ/L; Status: F Test: CALCIUM LEVEL; Value: 9.1; Range: 8.8-10.2; Units: MG/DL; Status: F Test Note: ; Units are mL/min/1.73 m2 Chronic Kidney Disease Staging per NKF: Stage I & II GFR >=60 Normal to Mildly Decreased Stage III GFR 30-59 Moderately Decreased Stage IV GFR 15-29 Severely Decreased Stage V GFR <15 Very Little GFR Left ESRD GFR <15 on CAMER[employer] SYSTEMS ENGINEER Lab Order: CBC with Diff; SPEC'M 07/17/16 23:00 Test: WHITE BLOOD COUNT; Value: 9.5; Range: 4.0-10.0; Units: K/mm3; Status: F Test: RED BLOOD COUNT; Value: 4.70; Range: 4.00-5.40; Units: M/mm3; Status: F Test: HEMOGLOBIN; Value: 13.5; Range: 12.0-16.0; Units: g/dl; Status: F Test: HEMATOCRIT; Value: 42.0; Range: 36.0-47.0; Units: %; Status: F Test: MEAN CORPUSCULAR VOLUME; Value: 89.2; Range: 80.0-96.0; Units: fl; Status: F Test: MEAN CORPUSCULAR HEMOGLOBIN; Value: 28.6; Range: 27.0-33.0; Units: pg; Status: F Test: MEAN CORPUSCULAR HGB CONC; Value: 32.1; Range: 32.0-36.5; Units: g/dl; Status: F Test: RED CELL DISTRIBUTION WIDTH; Value: 13.0; Range: 11.5-14.5; Units: %; Status: F Test: PLATELET COUNT, AUTOMATED; Value: 212; Range: 150-450; Units: k/mm3; Status: F Test: NEUTROPHILS %; Value: 70.9; Range: 36.0-66.0; Abnormal: Above high normal; Units: %; Status: F Test: LYMPH %; Value: 18.1; Range: 24.0-44.0; Abnormal: Below low normal; Units: %; Status: F Test: MONO %; Value: 5.4; Range: 0.0-5.0; Abnormal: Above high normal; Units: %; Status: F Test: EOS %; Value: 2.3; Range: 0.0-3.0; Units: %; Status: F Test: BASO %; Value: 0.7; Range: 0.0-1.0; Units: %; Status: F Test: LARGE UNSTAINED CELL %; Value: 2.6; Range: 0.0-4.0; Units: %; Status: F Test: NEUTROPHILS #; Value: 6.7; Range: 1.8-7.7; Units: K/mm3; Status: F Test: LYMPH #; Value: 1.7; Range: 1.5-4.5; Units: K/mm3; Status: F Test: MONO #; Value: 0.5; Range: 0.0-0.8; Units: K/mm3; Status: F Test: EOS #; Value: 0.2; Range: 0.0-0.50; Units: K/mm3; Status: F Test: BASO #; Value: 0.1; Range: 0.0-0.2; Units: K/mm3; Status: F Test: LARGE UNSTAINED CELL #; Value: 0.2; Range: 0.0-0.4; Units: K/mm3; Status: F Lab Order: Cardiac Injury Profile; SPEC'M 07/17/16 23:00 Test: CPK CREATINE PHOSPHOKINASE; Value: 109; Range: 26-192; Units: U/L; Status: F Test: CK-MB VALUE MASS; Value: 1.9; Range: 0.0-3.6; Units: NG/ML; Status: F Test: MB/CK RELATIVE INDEX; Value: 1.74; Range: < OR =4; Status: F Test Note: ; DIAGNOSIS CRITERIA MMB ng/ml Relative Index (RI) NON-AMI < or = 5 N/A BLANCO ZONE > 5 < or = 4 AMI > 5 > 4 Lab Order: Troponin; [facility] 07/17/16 23:00 Test: TROPONIN I; Value: < 0.02; Range: < 0.10; Units: NG/ML; Status: F Test Note: ; Troponin I Reference Interval for [employer] LOCI: 99th Percentile= 0.00-0.045 ng/ml Risk Stratification: <= 0.10 ng/ml Decreased Risk for Adverse Clinical Events. 0.10-1.50 ng/ml Increased Risk for Adverse Clinical Events. Evaluation of additional criterion and/or repeat testing in 2-6 hours is suggested to rule out myocardial damage. >= 1.50 ng/ml Indicative of Myocardial Injury. Lab Order: Venous Blood Gas (large pea green tube on ice); [facility] 07/18/16 00:18 Test: VENOUS PH; Value: 7.332; Range: 7.330-7.430; Units: UNITS; Status: F Test: VENOUS PARTIAL PRESSURE CO2; Value: 60.8; Range: 38.0-50.0; Abnormal: Above high normal; Units: mmHg; Status: F Test: VENOUS PARTIAL PRESSURE O2; Value: 33.0; Range: 30.0-50.0; Units: mmHg; Status: F Test: VENOUS TOTAL CO2; Value: 33.3; Range: 24.0-28.0; Abnormal: Above high normal; Units: MEQ/L; Status: F Test: VENOUS HCO3; Value: 31.5; Range: 23.0-27.0; Abnormal: Above high normal; Units: MEQ/L; Status: F Test: VENOUS BASE EXCESS; Value: 3.9; Range: -2.0-2.0; Abnormal: Above high normal; Status: F Test: VENOUS STANDARD HCO3; Value: 26.9; Units: MEQ/L; Status: F Test: VENOUS O2 SATURATION; Value: 57.6; Range: 60.0-80.0; Abnormal: Below low normal; Units: %; Status: F Lab Order: CARDIAC MARKER PANEL; [facility] 07/18/16 05:03 Test: CPK CREATINE PHOSPHOKINASE; Value: 79; Range: 26-192; Units: U/L; Status: F Test: CK-MB VALUE MASS; Value: 2.3; Range: 0.0-3.6; Units: NG/ML; Status: F Test: MB/CK RELATIVE INDEX; Value: 2.91; Range: < OR =4; Status: F Test: TROPONIN I; Value: < 0.02; Range: < 0.10; Units: NG/ML; Status: F Test Note: ; DIAGNOSIS CRITERIA MMB ng/ml Relative Index (RI) NON-AMI < or = 5 N/A BLANCO ZONE > 5 < or = 4 AMI > 5 > 4 Radiology Order: EKG-ADULT Test: EKG-ADULT REASON FOR EXAMINATION: Chest Pain; Stationary ECG Study; [facility] - ED; ; Test Date: 2016-07-17; Pat Name: YASMIN CALDERÓN Department:; Room: -; 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: 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; : 1955 Requested By: АННА Mckinney; Order Number: [id number] Reading MD: Shahida Menon; Measurements; Intervals [place]; Rate: 83 P: 36; SD: 153 QRS: -29; QRSD: 89 T: 19; QT: 403; QTc: 476; Interpretive Statements; SINUS RHYTHM WITH SINUS ARRHYTHMIA; BORDERLINE LEFT AXIS DEVIATION; MODERATE VOLTAGE CRITERIA FOR LVH, CONSIDER NORMAL VARIANT; PRWP; NSTTW ABNORMALITY; SIMILAR 07/24/15; Electronically Signed On 07-18-2016 21:20:08 EST by Shahida Menon; Radiology Order: portable chest Test: portable chest REASON FOR EXAMINATION: Chest Pain; AP chest x-ray: Single view.; ; History: Chest pain.; ; Comparison study October 17, 2014.; ; Findings: EKG electrodes are seen. Lungs are symmetrically aerated and clear.; Heart size is normal. Pulmonary vasculature is not increased. No significant; bony abnormality is seen.; ; Impression:; ; No active disease.; ; ; Signed by; Javier Rios MD 07/18/2016 09:29 A; Radiology Order: DVT US Lower Test: DVT US Lower REASON FOR EXAMINATION: Deformity/Swelling; ; Clinical history: Pain, swelling.; Findings: The left common femoral, superficial femoral, popliteal, and other deep venous structures c; ompress normally and demonstrate normal color Doppler flow. 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 mm11 06:33 Discharge Assessment: Patient awake, alert and oriented x 3. No cognitive and/or af2 functional deficits noted. Patient verbalized understanding of disposition instructions. patient administered narcotics - no. Discharge Assessment: patient administered narcotics - yes. Pt provided with safe discharge. The following High Risk Discharge criteria are identified: None. Discharged to home ambulatory, with significant other. Condition: stable. Discharge instructions given to patient, Instructed on discharge instructions, follow up and referral plans. medication usage, no driving heavy equipment, no drinking with medication, Demonstrated understanding of instructions, medications, Pt was receptive of discharge instructions/ teaching. No special radiology studies were completed. Property :Personal belongings accompany Pt. 06:34 Patient left the ED. af2 Signatures: Dispatcher [employer] EDMS Heather Cruz, Reg Reg Mason Chaudhari, [place] Worker Unit ml3 Toño Patel, COMPUTER PERIPHERAL EQUIPMENT OPERATOR COMPUTER PERIPHERAL EQUIPMENT OPERATOR kb5 Анна Cooney, DO DO mm11 Amanda Beckman,RN RN ld5 Delma Perez,RN RN mlc Kellen Duncan,GLORY RN af2 Gricelda Willoughby, Reg Reg hs2 [place], Crystal, COMPUTER PERIPHERAL EQUIPMENT OPERATOR COMPUTER PERIPHERAL EQUIPMENT OPERATOR cln Corrections: (The following items were deleted from the chart) 07/17 23:00 22:53 Presenting complaint: [id number] ld5 Chart Complete MTDD
--- NOTE | 2016-07-20 07:36 | EDDOCDS ---
Physician Documentation [facility] Name: Yasmin Calderón Age: 61 yrs Sex: Female : 1955 Arrival Date: 07/17/2016 Time: 22:48 Bed OBSERVATION Private MD: Disposition: 07/18/16 06:07 Discharged to Home/Self Care. Impression: Chest pain, unspecified. - Condition is Stable. - Discharge Instructions: Nonspecific Chest Pain, Chest Wall Pain, Nonspecific Chest Pain, [id number]. - Medication Reconciliation, Local Pharmacy Hours form. - Follow up: Fabian Alcala MD; When: 2 - 3 days; Reason: Continuance of care. - Problem is an acute exacerbation. - Symptoms have improved. Historical: - Allergies: no known allergies; - Home Meds: 1. aspirin 81 mg Oral tab 1 tab once daily 2. levothyroxine 75 mcg Oral tab 1 tab once daily 3. Neurontin 300 mg Oral cap 1 cap 3 times per day 4. atorvastatin 20 mg oral tab 1 tab once daily 5. lisinopril 20 mg oral tab 1 tab once daily 6. carvedilol 6.25 mg oral tab 1 tab 2 times per day 7. ranolazine 500 mg oral Tb12 1 tab 2 times per day 8. furosemide 20 mg Oral tab 1 tab once daily 9. fluoxetine 40 mg oral cap 1 cap once daily 10. amitriptyline 50 mg Oral tab 1 tab once daily 60 mg once a day/ 50 mg and a 10mg 11. Elavil 5 mg daily 12. clopidogrel 75 mg oral tab 1 tab once daily 13. hydroxyzine HCl 50 mg Oral tab twice a day 14. Tobrex 0.3 % Opht oint 2 times per day - PMHx: back pain; Hypertension; Hypothyroidism; NM; Migraine Headaches; Blowout fracture of right eye; - PSHx: Cardiac stents; - Social history: Smoking status: Patient states was never smoker of tobacco. No barriers to communication noted, The patient speaks fluent Telugu, Speaks appropriately for age. - Family history: Not pertinent. - : The pt / caregiver states he / she is on anticoagulants: Plavix. Home medication list is obtained from the patient. - Exposure Risk Screening:: None identified. Vital Signs: 07/17 23:01 BP 166 / 100; Pulse 88; Resp 16; Pulse Ox 96% on 2 lpm NC; Weight 94.8 kg / 209 lbs ld5 (R); Height 5 ft. 9 in. (175.26 cm) (R); Pain 6/10; 23:11 BP 154 / 89 (auto/); af2 23:12 Pulse 84 MON; Resp 18 S; Pulse Ox 97% on 2 lpm NC; af2 23:26 BP 156 / 87 (auto/); af2 23:27 Pulse 80 MON; Resp 18 S; Pulse Ox 97% on 2 lpm NC; af2 23:41 BP 140 / 78 (auto/); af2 23:43 Pulse 84 MON; Resp 18 S; Pulse Ox 96% on 2 lpm NC; af2 23:52 Temp 97.9(TE); af2 23:56 BP 143 / 73 (auto/); af2 23:57 Pulse 86 MON; Resp 18 S; Pulse Ox 90% on 2 lpm NC; af2 07/18 00:11 BP 143 / 78 (auto/); af2 00:12 Pulse 86 MON; Resp 18 S; Pulse Ox 95% on 2 lpm NC; af2 00:26 BP 140 / 74 (auto/); mlc 00:27 Pulse 84 MON; Resp 18 S; Pulse Ox 98% on R/A; mlc 00:41 BP 138 / 76 (auto/); mlc 00:42 Pulse 84 MON; Resp 18 S; Pulse Ox 96% on R/A; mlc 01:23 BP 114 / 74 (auto/); mlc 01:24 Pulse 82 MON; Resp 18 S; Pulse Ox 92% on R/A; mlc 03:38 BP 111 / 56 (auto/); af2 03:39 Pulse 86 MON; Resp 18 S; Pulse Ox 98% on R/A; af2 04:08 BP 116 / 67 (auto/); af2 04:09 Pulse 84 MON; Resp 18 S; Pulse Ox 99% on R/A; af2 04:38 BP 99 / 56 (auto/); af2 04:38 Pulse 86 MON; Resp 18 S; Pulse Ox 97% on R/A; af2 05:08 BP 106 / 64 (auto/); af2 05:08 Pulse 82 MON; Resp 18 S; Pulse Ox 98% on R/A; af2 05:38 BP 114 / 67 (auto/); af2 05:38 Pulse 80 MON; Resp 18 S; Pulse Ox 100% on R/A; af2 06:08 BP 121 / 73 (auto/); af2 06:09 Pulse 86 MON; Resp 18 S; Pulse Ox 97% on R/A; af2 06:27 BP 116 / 18; Pulse 84; Resp 18; Temp 97.0(O); Pulse Ox 99% on 2.0 lpm NC; Pain 0/10; kb5 07/17 23:01 Body Mass Index 30.86 (94.80 kg, 175.26 cm) ld5 MDM: 07/17 22:55 ECG WITH READING ER PHYS+CARDIAG ordered. EDMS 23:21 Hand Therapist/Pulse Ox/q 30 min VS ordered. mm11 23:21 IV Saline Lock ordered. mm11 23:21 Oxygen at 4L/Min NC or Home dosage ordered. mm11 23:21 Rhythm Strip to chart ordered. mm11 23:21 Undress patient appropriately for examination ordered. mm11 23:21 morphine 4 mg IVP every 30 minutes; Document pain score/vitals after each dose (Hold if mm11 SBP < 90mmHg) x2 ordered. 23:21 Ondansetron 4 mg IVP once ordered. mm11 23:22 B-Type Natiuretic Peptide Ordered. EDMS 23:22 Basic Metabolic Profile Ordered. EDMS 23:22 CBC with Diff Ordered. EDMS 23:22 Cardiac Injury Profile Ordered. EDMS 23:22 Troponin Ordered. EDMS 23:22 portable chest Ordered. EDMS 23:24 DVT US Lower Ordered. EDMS 23:26 The patient was assigned to Observation Status due to uncertainty of mm11 diagnosis/disposition, and remained under my care. 23:49 Basic Metabolic Profile Reviewed. mm11 23:49 CBC with Diff Reviewed. mm11 23:49 B-Type Natiuretic Peptide Reviewed. mm11 23:49 Cardiac Injury Profile Reviewed. mm11 23:49 Troponin Reviewed. mm11 23:50 Venous Blood Gas (large pea green tube on ice) Ordered. EDMS 02 00:33 Venous Blood Gas (large pea green tube on ice) Reviewed. mm11 00:34 Financial registration complete. hs2 00:45 [facility] Payment Agreement was scanned into [employer] and attached to record. hs2 02:45 Repeat EKG (put time details section) ordered. mm11 02:45 Redraw CIP &Troponin (put time in details section) ordered. mm11 02:48 Redraw CIP &Troponin (put time in details section) complete. ml3 02:48 Repeat EKG (put time details section) complete. ml3 02:48 CARDIAC MARKER PANEL Ordered. EDMS 02:49 ECG WITH READING ER PHYS ordered. EDMS 05:39 CARDIAC MARKER PANEL Reviewed. mm11 05:39 DVT US Lower Reviewed. mm11 12:35 T-Sheet-- Draft Copy was scanned into Captric[employer] and attached to record. gb 12:35 Trend VS was scanned into [employer] and attached to record. gb 14:56 PCR was scanned into [employer] and attached to record. gb Administered Medications: 07/17 23:41 Drug: morphine 4 mg [morphine 4 mg/mL intravenous cartridge (1 mL)] Route: IVP; Site: af2 right antecubital; 07/18 00:21 Follow up: Response: Pain is decreased af2 07/17 23:42 Drug: Ondansetron 4 mg [ondansetron HCl 2 mg/mL intravenous solution (2 mL)] Route: af2 IVP; Site: right antecubital; 07/18 00:21 Follow up: Response: Pain is decreased af2 Signatures: Dispatcher [employer] EDMS Heather Cruz, Reg Reg gb Mason Ruby, Casino Supervisor Unit ml3 Juarez Cooney, DO mm11 Amanda Beckman RN RN ld5 Kellen Duncan RN RN af2 Gricelda Willoughby, Reg Reg hs2 The chart was reviewed and I authenticate all verbal orders and agree with the evaluation and treatment provided.Attachments: 00:45 [facility] Payment Agreement hs2 12:35 T-Sheet-- Draft Copy gb Chart Complete MTDD
--- NOTE | 2016-07-20 07:36 | EDDOCDS ---
Physician Documentation [facility] Name: Yasmin Calderón Age: 61 yrs Sex: Female : 1955 Arrival Date: 07/17/2016 Time: 22:48 Bed OBSERVATION Private MD: Disposition: 07/18/16 06:07 Discharged to Home/Self Care. Impression: Chest pain, unspecified. - Condition is Stable. - Discharge Instructions: Nonspecific Chest Pain, Chest Wall Pain, Nonspecific Chest Pain, [id number]. - Medication Reconciliation, Local Pharmacy Hours form. - Follow up: Fabian Alcala MD; When: 2 - 3 days; Reason: Continuance of care. - Problem is an acute exacerbation. - Symptoms have improved. Historical: - Allergies: no known allergies; - Home Meds: 1. aspirin 81 mg Oral tab 1 tab once daily 2. levothyroxine 75 mcg Oral tab 1 tab once daily 3. Neurontin 300 mg Oral cap 1 cap 3 times per day 4. atorvastatin 20 mg oral tab 1 tab once daily 5. lisinopril 20 mg oral tab 1 tab once daily 6. carvedilol 6.25 mg oral tab 1 tab 2 times per day 7. ranolazine 500 mg oral Tb12 1 tab 2 times per day 8. furosemide 20 mg Oral tab 1 tab once daily 9. fluoxetine 40 mg oral cap 1 cap once daily 10. amitriptyline 50 mg Oral tab 1 tab once daily 60 mg once a day/ 50 mg and a 10mg 11. Elavil 5 mg daily 12. clopidogrel 75 mg oral tab 1 tab once daily 13. hydroxyzine HCl 50 mg Oral tab twice a day 14. Tobrex 0.3 % Opht oint 2 times per day - PMHx: back pain; Hypertension; Hypothyroidism; [place]; Migraine Headaches; Blowout fracture of right eye; - PSHx: Cardiac stents; - Social history: Smoking status: Patient states was never smoker of tobacco. No barriers to communication noted, The patient speaks fluent Uzbek, Speaks appropriately for age. - Family history: Not pertinent. - : The pt / caregiver states he / she is on anticoagulants: Plavix. Home medication list is obtained from the patient. - Exposure Risk Screening:: None identified. Vital Signs: 07/17 23:01 BP 166 / 100; Pulse 88; Resp 16; Pulse Ox 96% on 2 lpm NC; Weight 94.8 kg / 209 lbs ld5 (R); Height 5 ft. 9 in. (175.26 cm) (R); Pain 6/10; 23:11 BP 154 / 89 (auto/); af2 23:12 Pulse 84 MON; Resp 18 S; Pulse Ox 97% on 2 lpm NC; af2 23:26 BP 156 / 87 (auto/); af2 23:27 Pulse 80 MON; Resp 18 S; Pulse Ox 97% on 2 lpm NC; af2 23:41 BP 140 / 78 (auto/); af2 23:43 Pulse 84 MON; Resp 18 S; Pulse Ox 96% on 2 lpm NC; af2 23:52 Temp 97.9(TE); af2 23:56 BP 143 / 73 (auto/); af2 23:57 Pulse 86 MON; Resp 18 S; Pulse Ox 90% on 2 lpm NC; af2 07/18 00:11 BP 143 / 78 (auto/); af2 00:12 Pulse 86 MON; Resp 18 S; Pulse Ox 95% on 2 lpm NC; af2 00:26 BP 140 / 74 (auto/); mlc 00:27 Pulse 84 MON; Resp 18 S; Pulse Ox 98% on R/A; mlc 00:41 BP 138 / 76 (auto/); mlc 00:42 Pulse 84 MON; Resp 18 S; Pulse Ox 96% on R/A; mlc 01:23 BP 114 / 74 (auto/); mlc 01:24 Pulse 82 MON; Resp 18 S; Pulse Ox 92% on R/A; mlc 03:38 BP 111 / 56 (auto/); af2 03:39 Pulse 86 MON; Resp 18 S; Pulse Ox 98% on R/A; af2 04:08 BP 116 / 67 (auto/); af2 04:09 Pulse 84 MON; Resp 18 S; Pulse Ox 99% on R/A; af2 04:38 BP 99 / 56 (auto/); af2 04:38 Pulse 86 MON; Resp 18 S; Pulse Ox 97% on R/A; af2 05:08 BP 106 / 64 (auto/); af2 05:08 Pulse 82 MON; Resp 18 S; Pulse Ox 98% on R/A; af2 05:38 BP 114 / 67 (auto/); af2 05:38 Pulse 80 MON; Resp 18 S; Pulse Ox 100% on R/A; af2 06:08 BP 121 / 73 (auto/); af2 06:09 Pulse 86 MON; Resp 18 S; Pulse Ox 97% on R/A; af2 06:27 BP 116 / 18; Pulse 84; Resp 18; Temp 97.0(O); Pulse Ox 99% on 2.0 lpm NC; Pain 0/10; kb5 07/17 23:01 Body Mass Index 30.86 (94.80 kg, 175.26 cm) ld5 MDM: 07/17 22:55 ECG WITH READING ER PHYS+CARDIAG ordered. EDMS 23:21 Machinist Supervisor/Pulse Ox/q 30 min VS ordered. mm11 23:21 IV Saline Lock ordered. mm11 23:21 Oxygen at 4L/Min NC or Home dosage ordered. mm11 23:21 Rhythm Strip to chart ordered. mm11 23:21 Undress patient appropriately for examination ordered. mm11 23:21 morphine 4 mg IVP every 30 minutes; Document pain score/vitals after each dose (Hold if mm11 SBP < 90mmHg) x2 ordered. 23:21 Ondansetron 4 mg IVP once ordered. mm11 23:22 B-Type Natiuretic Peptide Ordered. EDMS 23:22 Basic Metabolic Profile Ordered. EDMS 23:22 CBC with Diff Ordered. EDMS 23:22 Cardiac Injury Profile Ordered. EDMS 23:22 Troponin Ordered. EDMS 23:22 portable chest Ordered. EDMS 23:24 DVT US Lower Ordered. EDMS 23:26 The patient was assigned to Observation Status due to uncertainty of mm11 diagnosis/disposition, and remained under my care. 23:49 Basic Metabolic Profile Reviewed. mm11 23:49 CBC with Diff Reviewed. mm11 23:49 B-Type Natiuretic Peptide Reviewed. mm11 23:49 Cardiac Injury Profile Reviewed. mm11 23:49 Troponin Reviewed. mm11 23:50 Venous Blood Gas (large pea green tube on ice) Ordered. EDMS 02 00:33 Venous Blood Gas (large pea green tube on ice) Reviewed. mm11 00:34 Financial registration complete. hs2 00:45 [facility] [place] Agreement was scanned into [employer] and attached to record. hs2 02:45 Repeat EKG (put time details section) ordered. mm11 02:45 Redraw CIP &Troponin (put time in details section) ordered. mm11 02:48 Redraw CIP &Troponin (put time in details section) complete. ml3 02:48 Repeat EKG (put time details section) complete. ml3 02:48 CARDIAC MARKER PANEL Ordered. EDMS 02:49 ECG WITH READING ER PHYS ordered. EDMS 05:39 CARDIAC MARKER PANEL Reviewed. mm11 05:39 DVT US Lower Reviewed. mm11 12:35 T-Sheet-- Draft Copy was scanned into [employer] and attached to record. gb 12:35 Trend VS was scanned into [employer] and attached to record. gb 14:56 PCR was scanned into [employer] and attached to record. gb Administered Medications: 07/17 23:41 Drug: morphine 4 mg [morphine 4 mg/mL intravenous cartridge (1 mL)] Route: IVP; Site: af2 right antecubital; 07/18 00:21 Follow up: Response: Pain is decreased af2 07/17 23:42 Drug: Ondansetron 4 mg [ondansetron HCl 2 mg/mL intravenous solution (2 mL)] Route: af2 IVP; Site: right antecubital; 07/18 00:21 Follow up: Response: Pain is decreased af2 Signatures: Dispatcher MedHost EDMS Heather Cruz, Reg Reg gb Mason Ruby, Battalion Fire Chief Unit ml3 Juarez Cooney, DO mm11 Amanda Beckman RN RN ld5 Kellen Duncan RN RN af2 Gricelda Willoughby, Reg Reg hs2 The chart was reviewed and I authenticate all verbal orders and agree with the evaluation and treatment provided.Attachments: 00:45 [facility] Payment Agreement hs2 12:35 T-Sheet-- Draft Copy gb Chart Complete MTDD
== END 2016-07-18 06:34 | disposition home or self-care (01) ==
LOC: M ED 22:48
DX: R07.89 Other chest pain (principal); R06.02 Shortness of breath; I10 Essential (primary) hypertension; I25.10 Atherosclerotic heart disease of native coronary artery without angina pectoris; I25.2 Old myocardial infarction; E03.9 Hypothyroidism, unspecified; M54.9 Dorsalgia, unspecified; G43.909 Migraine, unspecified, not intractable, without status migrainosus; Z95.5 Presence of coronary angioplasty implant and graft; Z87.828 Personal history of other (healed) physical injury and trauma; Z79.899 Other long term (current) drug therapy; Z79.82 Long term (current) use of aspirin; Z79.52 Long term (current) use of systemic steroids; Z79.01 Long term (current) use of anticoagulants
CPT/HCPCS: 36415; 71010; 80048; 82550; 82553; 82803; 83880; 84484; 85025; 93005; 93041; 93971; 96374; 96375; 99285; J2405

== ENCOUNTER 2016-10-26 16:05 | Emergency (ER) | payer MEDICARE, OTHER ==
[~2016-10-26] VITALS: Ht 160 cm; Wt 94.3 kg
[2016-10-26] MEDS ORDERED: NITR0.4S14 SL (16:35)
[2016-10-26] MEDS ORDERED: ASPIRIN 81 MG CHEW TABLET PO ONE (17:30)
[2016-10-26] MEDS ORDERED: NS 500 ML IV ONE (17:30)
[2016-10-26 17:52] LABS: BASO % 0.4 % (0.0-1.0); EOS # 0.2 K/mm3 (0.0-0.50); EOS % 2.1 % (0.0-3.0); LARGE UNSTAINED CELL # 0.1 K/mm3 (0.0-0.4); LARGE UNSTAINED CELL % 1.3 % (0.0-4.0); LYMPH # 1.2 K/mm3 (1.5-4.5); LYMPH % 13.3 % (24.0-44.0); MEAN CORPUSCULAR HEMOGLOBIN 29.9 pg (27.0-33.0); MEAN CORPUSCULAR HGB CONC 33.3 g/dl (32.0-36.5); MEAN CORPUSCULAR VOLUME 89.9 fl (80.0-96.0); MONO # 0.4 K/mm3 (0.0-0.8); MONO % 4.8 % (0.0-5.0); NEUTROPHILS # 6.6 K/mm3 (1.8-7.7); NEUTROPHILS % 78.1 % (36.0-66.0); PLATELET COUNT, AUTOMATED 171 k/mm3 (150-450); WHITE BLOOD COUNT 8.4 K/mm3 (4.0-10.0)
[2016-10-26 17:58] LABS: INR 1.04
--- NOTE | 2016-10-26 17:58 | REP ---
Clinical: Chest pain . Comparison: 07/17/2016 . Technique: PA and lateral. Findings: The mediastinum and cardiac silhouette are normal. The lung rasmussen are clear and without acute consolidation, effusion, or pneumothorax. The skeletal structures are intact and normal. Impression: 1. No acute cardiopulmonary process. Signed by Blaise Mahmood MD 10/26/2016 05:49 P
[2016-10-26 18:16] LABS: ALBUMIN 3.2 GM/DL (3.2-5.2); ALBUMIN/GLOBULIN RATIO 0.84 (1.00-1.93); ALKALINE PHOSPHATASE 240 U/L (45-117); ALT/SGPT 67 U/L (12-78); ANION GAP 4 MEQ/L (8-16); AST/SGOT 112 U/L (15-37); BILIRUBIN,DIRECT 0.3 MG/DL (0.0-0.2); BILIRUBIN,TOTAL 0.8 MG/DL (0.2-1.0); BLOOD UREA NITROGEN 22 MG/DL (7-18); CALCIUM LEVEL 8.1 MG/DL (8.8-10.2); CARBON DIOXIDE LEVEL 30 MEQ/L (21-32); CHLORIDE LEVEL 106 MEQ/L (98-107); FREE T4 1.29 NG/DL (0.76-1.46); GLOMERULAR FILTRATION RATE 40.4 (>45); GLUCOSE, FASTING 172 MG/DL (80-110); POTASSIUM SERUM 3.5 MEQ/L (3.5-5.1); SODIUM LEVEL 140 MEQ/L (136-145)
--- NOTE | 2016-10-26 18:54 | REP ---
Clinical: Right upper quadrant pain. Technique: Real time snider scale ultrasound examination using curved array transducer. Findings: The liver is diffusely increased in echogenicity with poor through transmission suggesting fatty infiltration and no focal hepatic lesion identified. The pancreas is incompletely evaluated due to interposed bowel gas. Gallbladder demonstrates 2.6 cm gallstone without wall thickening or pericholecystic fluid and no biliary ductal dilatation to suggest acute cholecystitis. Common bile duct measures 4.6 mm diameter. The right kidney is normal in reniform shape without hydronephrosis and demonstrates cortical thinning consistent with chronic renal disease. Right kidney measures 9.4 x 5.9 x 4.7 cm. Impression: 1. Cholelithiasis with 2.6 cm gallstone, but no evidence for acute cholecystitis by ultrasound. 2. Hepatosteatosis without focal hepatic lesion identified. 3. Renal cortical thinning and prominent medullary sinus fat consistent with age-related renal disease. Signed by Blaise Mahmood MD 10/26/2016 06:46 P
[2016-10-26 20:07] VITALS: O2SAT 95
[2016-10-27 00:21] VITALS: BP 156/91
--- NOTE | 2016-10-31 15:12 | ECGEPIP ---
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
== END 2016-10-27 00:27 | disposition home or self-care (01) ==
LOC: M ED 16:45
DX: I20.9 Angina pectoris, unspecified (principal); E86.0 Dehydration; F41.9 Anxiety disorder, unspecified; F32.9 Major depressive disorder, single episode, unspecified; E03.9 Hypothyroidism, unspecified; R94.31 Abnormal electrocardiogram [ECG] [EKG]; K80.20 Calculus of gallbladder without cholecystitis without obstruction; K76.89 Other specified diseases of liver; Z79.82 Long term (current) use of aspirin; Z79.899 Other long term (current) drug therapy

== ENCOUNTER → 2016-11-09 | Outpatient (CLI) | payer MEDICARE, OTHER ==
[~2016-11-09] MED LIST changes: +NITR0.4S14 SL
--- NOTE | 2016-11-17 08:31 | SLEEPCENT ---
DATE OF PROCEDURE: 11/09/2016 ORDERED BY: Laury David. Nocturnal polysomnography was performed for the titration of pressure therapy in this patient with obstructive sleep apnea syndrome, apnea-hypopnea index of 5.7. For testing, the patient was fit with a ResMed Quattro full face mask of small size, 4 cm of water pressure was applied to the circuit and the lights were extinguished. 7 hours and 24 minutes of data were reviewed. There were 410 minutes of sleep identified. Sleep latency was short at 3.5 minutes. REM latency was mildly prolonged at 93 minutes. Sleep architecture was good with 4 rapid eye movement (REM) periods appreciated. Overall sleep efficiency was 94%. EKG showed a sinus rhythm with an average heart rate of 78 beats per minute. EEG showed normal wave forms for awake and sleep. Respiratory events were fully palliated with CPAP at a pressure of +7. CPAP tolerance was good. There was some limb activity but limb movement arousal index was only 4.1. IMPRESSION: Obstructive sleep apnea syndrome (G47.33). RECOMMENDATION: Nightly use of pressure therapy 7 cm of water.
== END ==
LOC: M SLEEP 20:00
PROVIDERS: ATTEND Nurse Practitioner Adult Health
DX: G47.33 Obstructive sleep apnea (adult) (pediatric) (principal)

== ENCOUNTER → 2016-11-24 | Outpatient (CLI) | payer MEDICARE, OTHER ==
[~2016-11-24] MED LIST changes: +FLUO20CA19 PO; -FLUO20CA9 PO; +TOPA100T12 PO; -TOPA100T8 PO
--- NOTE | 2016-11-24 17:43 | REP ---
HISTORY: Adhesive capsulitis and left shoulder pain. COMPARISON: None. FINDINGS: Three views of the left shoulder were performed. The acromioclavicular and glenohumeral relationships are within normal limits. There is no acute fracture or destructive osseous lesion. Signed by Devin Davis DO 11/25/2016 10:07 A
== END ==
LOC: M LRY 14:40
PROVIDERS: ATTEND Family Medicine
DX: M75.02 Adhesive capsulitis of left shoulder (principal); S43.422A Sprain of left rotator cuff capsule, initial encounter; X58.XXXA Exposure to other specified factors, initial encounter; Y92.9 Unspecified place or not applicable; Y93.9 Activity, unspecified; Y99.8 Other external cause status
CPT/HCPCS: 73030; G0463

== ENCOUNTER → 2016-12-29 | Outpatient (REF) | payer MEDICARE, OTHER | LOC: M SFHCLERA 13:37 | PROVIDERS: ATTEND Family Medicine | DX: R42 Dizziness and giddiness (principal); Z13.1 Encounter for screening for diabetes mellitus; Z79.52 Long term (current) use of systemic steroids; Z79.899 Other long term (current) drug therapy | CPT/HCPCS: 83036; G0463 ==

== ENCOUNTER → 2017-01-13 | Outpatient (CLI) | payer MEDICARE, OTHER ==
--- NOTE | 2017-01-14 10:48 | DEXA ---
AP SPINE L1 - L4 1.228 0.3 1.7 LT FEMUR TOTAL 0.945 -0.5 0.6 RT FEMUR TOTAL 0.900 -0.9 0.3 TOTAL BODY TOTAL OTHER DUAL FEMUR FRAX* ASSESSMENT Risk factors: Not done. 10 year probability of fracture Major osteoporotic fracture % Hip fracture % COMMENTS: Normal bone densitometry of the spine. There is low bone density of the hips. FOLLOW-UP: Recommendation for the next bone density exam: 2 years. IDRISD
== END ==
LOC: M WHC 08:23
PROVIDERS: ATTEND Family Medicine
DX: Z13.820 Encounter for screening for osteoporosis (principal); M89.9 Disorder of bone, unspecified

== ENCOUNTER 2017-04-23 07:53 | Day surgery (SDC) | payer MEDICARE, OTHER ==
[~2017-04-23] VITALS: Ht 157.5 cm; Wt 91.6 kg
[2017-04-23] MEDS ORDERED: NS 1,000 ML IV SCH (09:00)
[2017-04-23] MEDS ORDERED: LIDOCAINE 2% INJ 100 MG/5 ML SDV (FOR ANES.) As Ordered ONE (10:06)
[2017-04-23] MEDS ORDERED: PROPOFOL 200 MG/20 ML VIAL As Ordered ONE (10:06)
--- NOTE | 2017-04-23 10:30 | ROOR ---
Patient Name: Yasmin Calderón Procedure Date: 04/23/2017 9:47 AM Date of : 1955 Age: 61 Room: [facility] Gender: Female Note Status: Finalized Procedure: Colonoscopy Indications: Screening in patient at increased risk: Colorectal cancer in child before age 60 Providers: Juice LOMELI MD Referring MD: Chapin Perez Requesting Provider: Medicines: Monitored Anesthesia Care Complications: No immediate complications. Procedure: Pre-Anesthesia Assessment: - The heart rate, respiratory rate, oxygen saturations, blood pressure, adequacy of pulmonary ventilation, and response to care were monitored throughout the procedure. The Colonoscope was introduced through the anus and advanced to the cecum, identified by appendiceal orifice and ileocecal valve. The colonoscopy was performed without difficulty. The patient tolerated the procedure well. The quality of the bowel preparation was good. Findings: The perianal and digital rectal examinations were normal. An infiltrative and ulcerated non-obstructing small mass was found in the proximal sigmoid colon. The mass measured two cm in length. This was biopsied with a cold forceps for histology. Area was successfully injected with 5 mL Lia ink for tattooing. Four sessile polyps were found in the hepatic flexure and ascending colon. The polyps were diminutive in size. These polyps were removed with a cold snare. Resection and retrieval were complete. Two sessile polyps were found in the sigmoid colon. The polyps were diminutive in size. These polyps were removed with a cold snare. Resection and retrieval were complete. Impression: - 2 cm infiltrative ulcerated mass/lesion in the proximal sigmoid colon (at 50 cm from anal verge on the way out). - This was NOT removed. This was Biopsied. Tattooed. - Four diminutive polyps at the hepatic flexure and in the ascending colon, removed with a cold snare. Resected and retrieved. - Two diminutive polyps in the sigmoid colon, removed with a cold snare. Resected and retrieved. Recommendation: - Telephone endoscopist for pathology results in 2 weeks. - Await pathology results. - If the pathology report is malignant, then refer to a surgeon at the next available appointment. Juice Lomeli MD Juice LOMELI MD 04/23/2017 10:30:17 AM This report has been signed electronically. Number of Addenda: 0 Note Initiated On: 04/23/2017 9:47 AM Estimated Blood Loss: Estimated blood loss: none.
[2017-04-23 10:43] VITALS: BP 136/72
== END 2017-04-23 11:15 | disposition home or self-care (01) ==
LOC: M OPP 07:53
PROVIDERS: ATTEND Internal Medicine Gastroenterology
DX: Z12.11 Encounter for screening for malignant neoplasm of colon (principal); Z80.0 Family history of malignant neoplasm of digestive organs; C18.9 Malignant neoplasm of colon, unspecified; D12.3 Benign neoplasm of transverse colon; D12.5 Benign neoplasm of sigmoid colon; D12.2 Benign neoplasm of ascending colon; I11.0 Hypertensive heart disease with heart failure; E78.5 Hyperlipidemia, unspecified; I25.2 Old myocardial infarction; Z95.5 Presence of coronary angioplasty implant and graft; I50.9 Heart failure, unspecified; E03.9 Hypothyroidism, unspecified; K80.20 Calculus of gallbladder without cholecystitis without obstruction; F32.9 Major depressive disorder, single episode, unspecified; F41.9 Anxiety disorder, unspecified; M19.90 Unspecified osteoarthritis, unspecified site; I63.9 Cerebral infarction, unspecified; G62.9 Polyneuropathy, unspecified; R53.82 Chronic fatigue, unspecified; R51 Headache; G47.30 Sleep apnea, unspecified; J32.9 Chronic sinusitis, unspecified; Z79.82 Long term (current) use of aspirin; Z79.899 Other long term (current) drug therapy; Z80.3 Family history of malignant neoplasm of breast

== ENCOUNTER → 2017-05-19 | Outpatient (CLI) | payer MEDICARE, OTHER ==
[~2017-05-19] MED LIST changes: +FURO20TA2 PO; +HYDR50TA70 PO; +LASI20TA PO; +LISI-538 PO; +MAGN1TAB25 PO; +PROC10TA PO; +TOPI25CA PO
== END ==
LOC: M LAB 14:06
PROVIDERS: ATTEND Surgery
DX: C18.9 Malignant neoplasm of colon, unspecified (principal)

== ENCOUNTER → 2017-05-19 | Outpatient (CLI) | payer MEDICARE, OTHER ==
[~2017-05-19] MED LIST changes: +GASTROGRAFIN SOLUTION 30ML (Q9963) As Ordered ONE; +ISOVUE-370 76% 100ML VIAL (Q9967) As Ordered ONE
--- NOTE | 2017-05-19 15:56 | REP ---
CT abdomen and pelvis without and with IV contrast: With oral contrast. History: Colon carcinoma, sigmoid colon . CT contrast dose: 100 ml of Isovue 370 is given intraven[address]. Comparison CT study September 01, 2014. The lung bases are clear. There is no evidence of pleural effusion or upper abdominal ascites. Preliminary digital medical care manager radiograph is unremarkable. The liver and the spleen are normal in size and homogeneous in texture on pre- and postcontrast CT imaging. There appear to be two large partially calcified gallstones in the gallbladder. There is an accessory splenule. No adrenal lesion is seen. No pancreatic mass is observed. No retroperitoneal mass or adenopathy is seen. The kidneys enhance symmetrically and are morphologically intact. A normal appendix is seen in the right lower quadrant. I cannot resolve a mass lesion involving the large or small intestine. No mesenteric adenopathy is seen. No uterine or adnexal abnormalities observed. Urinary bladder is small and contracted, but appears intact. No abdominal wall defect is seen. Bone window settings show no bony destructive lesion. Impression: Cholelithiasis. No evidence of hepatic mass or abdominal adenopathy. No colon mass is visualized. Signed by Javier Rios MD 05/19/2017 04:04 P
== END ==
LOC: M RAD 11:49
PROVIDERS: ATTEND Surgery
DX: C18.9 Malignant neoplasm of colon, unspecified (principal)
CPT/HCPCS: 36415; 74178; 82378; Q9963; Q9967

== ENCOUNTER 2017-05-27 06:08 | Inpatient (IN) | payer MEDICARE, OTHER ==
[2017-05-27] VITALS (9 sets, daily range): BP systolic 115–148; BP diastolic 75–89; O2SAT 95
[~2017-05-27] VITALS: Ht 160 cm; Wt 93.8 kg
[~2017-05-27 06:08] MED LIST changes: -GASTROGRAFIN SOLUTION 30ML (Q9963) As Ordered ONE; -ISOVUE-370 76% 100ML VIAL (Q9967) As Ordered ONE
[2017-05-27] MEDS ORDERED: ERTAPENEM 1 GM INJ (INVanz) (J1335) As Ordered ONE ×2 (06:21→07:04)
[2017-05-27] MEDS ORDERED: ERTAPENEM SODIUM 1 GM in APPROPRIATE DILUENT 1 EA IV SCH (06:45)
[2017-05-27] MEDS ORDERED: ASPIRIN 325 MG TAB As Ordered ONE (07:00)
[2017-05-27] MEDS ORDERED: LIDOCAINE 2% INJ 100 MG/5 ML SDV (FOR ANES.) As Ordered ONE (07:16)
[2017-05-27] MEDS ORDERED: MIDAZOLAM INJ 2 MG/2 ML VIAL (J2250) As Ordered ONE (07:16)
[2017-05-27] MEDS ORDERED: PROPOFOL 200 MG/20 ML VIAL As Ordered ONE (07:16)
[2017-05-27] MEDS ORDERED: fentaNYL 250 MCG/5 ML INJECTION (J3010) As Ordered ONE (07:16)
[2017-05-27] MEDS ORDERED: ROCURONIUM BROMIDE 50 MG/5 ML VIAL As Ordered ONE ×2 (07:16→08:32)
[2017-05-27] MEDS ORDERED: LR 1,000 ML IV ONE (07:30)
[2017-05-27] MEDS ORDERED: ASPIRIN 325 MG TAB PO ONE (07:30)
[2017-05-27] MEDS ORDERED: LIDOCAINE 1% MDV 20ML VIAL SQ PRN (07:30)
[2017-05-27] MEDS ORDERED: LIDOCAINE W/EPINEPHRINE 1% 20ML VIAL As Ordered ONE (07:39)
[2017-05-27] MEDS ORDERED: dexameTHASONE 4 MG/ML 1ML VIAL (J1100) As Ordered ONE (07:53)
[2017-05-27] MEDS ORDERED: HYDROmorphone HCL 2 MG/ML 1ML VIAL (J1170) As Ordered ONE (08:52)
[2017-05-27] MEDS ORDERED: GLYCOPYRROLATE INJ 0.2 MG/ML 2 ML VIAL As Ordered ONE (08:52)
[2017-05-27] MEDS ORDERED: NEOSTIGMINE 10 MG/10 ML VIAL (J2710) As Ordered ONE (08:52)
[2017-05-27] MEDS ORDERED: ONDANSETRON 4MG/2ML VIAL (J2405) As Ordered ONE (08:53)
[2017-05-27] MEDS ORDERED: SUGAMMADEX SODIUM 500 MG/5 ML VIAL (BRIDION) As Ordered ONE (10:49)
[2017-05-27] MEDS ORDERED: ESMOLOL INJ 100MG/10ML VIAL As Ordered ONE (10:54)
[2017-05-27] MEDS ORDERED: LABETALOL HCL 100 MG/20 ML VIAL As Ordered ONE (11:00)
[2017-05-27] MEDS ORDERED: fentaNYL 100 MCG/2 ML INJECTION (J3010) IV PRN (11:45)
[2017-05-27] MEDS ORDERED: LR 1,000 ML IV SCH (11:45)
[2017-05-27] MEDS ORDERED: HYDROmorphone HCL 1 MG/ML SYRINGE (J1170) IV PRN (11:45)
[2017-05-27] MEDS ORDERED: PROCHLORPERAZINE 5 MG TAB (S0183) PO PRN (12:00)
[2017-05-27] MEDS ORDERED: MORPHINE 2 MG/ML 1ML SYRINGE IV PRN (12:00)
[2017-05-27] MEDS ORDERED: ONDANSETRON 4MG/2ML VIAL (J2405) IV PRN (12:00)
[2017-05-27] MEDS ORDERED: NITROGLYCERIN 0.4 MG SUBL TABLET SL PRN (12:00)
[2017-05-27] MEDS ORDERED: hydrOXYzine 50 MG TAB PO PRN (12:00)
[2017-05-27] MEDS ORDERED: ACETAMINOPHEN TAB 650MG DOSE (2X325MG) PO PRN (12:00)
[2017-05-27] MEDS: ATORVASTATIN 20 MG TAB PO SCH (13:17)
[2017-05-27] MEDS: PANTOPRAZOLE 40MG TAB (PROTONIX) PO SCH (13:17)
[2017-05-27] MEDS: FUROSEMIDE 20 MG TAB PO SCH (13:18)
[2017-05-27] MEDS: LISINOPRIL 20 MG TAB PO SCH (13:18)
[2017-05-27] MEDS: FLUoxetine 20 MG CAP PO SCH (13:18)
[2017-05-27] MEDS: KETOROLAC 30 MG/ML VIAL (J1885) IV PRN ×2 (13:20→21:16)
[2017-05-27] MEDS: HEPARIN SOD (PORCINE) 5000 UNITS/ML VIAL SC SCH ×2 (13:20→21:17)
[2017-05-27] MEDS: LR 1,000 ML IV SCH ×2 (13:20→21:16)
[2017-05-27] MEDS: NORCO, ANEXSIA 5/325MG TABLET (HYDROcodone/ACETAMINOPHEN) PO PRN (15:43)
[2017-05-27] MEDS: GABAPENTIN 300 MG CAP PO SCH (21:17)
[2017-05-27] MEDS: CARVedilol 12.5 MG TAB PO SCH (21:17)
[2017-05-27] MEDS: SENOKOT S TAB PO SCH (21:17)
[2017-05-27] MEDS: TOPIRAMATE (TopAMAX) 25 MG TAB PO SCH (21:17)
[2017-05-28] MEDS: NORCO, ANEXSIA 5/325MG TABLET (HYDROcodone/ACETAMINOPHEN) PO PRN ×3 (01:36→18:55)
[2017-05-28 02:00] VITALS: BP 110/65
[2017-05-28] MEDS: LR 1,000 ML IV SCH ×3 (05:19→21:31)
[2017-05-28] MEDS: KETOROLAC 30 MG/ML VIAL (J1885) IV PRN ×2 (05:19→21:32)
[2017-05-28] MEDS: HEPARIN SOD (PORCINE) 5000 UNITS/ML VIAL SC SCH ×3 (05:20→21:33)
[2017-05-28] MEDS: LEVOTHYROXINE 75MCG TABLET (0.075MG) PO SCH (05:20)
[2017-05-28 06:00] VITALS: BP 96/53
[2017-05-28 07:12] LABS: MEAN CORPUSCULAR HEMOGLOBIN 28.2 pg (27.0-33.0); MEAN CORPUSCULAR HGB CONC 32.5 g/dl (32.0-36.5); PLATELET COUNT, AUTOMATED 172 10^3/uL (150-450); RED CELL DISTRIBUTION WIDTH 14.6 % (11.5-14.5); WHITE BLOOD COUNT 12.6 10^3/uL (4.0-10.0)
[2017-05-28 07:25] LABS: CALCIUM LEVEL 7.7 MG/DL (8.8-10.2); CREATININE FOR GFR 1.31 MG/DL (0.55-1.02); GLOMERULAR FILTRATION RATE 43.5 (>45); MAGNESIUM LEVEL 2.2 MG/DL (1.8-2.4); POTASSIUM SERUM 3.3 MEQ/L (3.5-5.1)
[2017-05-28] MEDS: KCL 10MEQ IN 100ML SWI (KRUN) 10 MEQ in APPROPRIATE DILUENT 1 EA IV SCH ×8 (08:42→12:39)
[2017-05-28] MEDS: ATORVASTATIN 20 MG TAB PO SCH (08:42)
[2017-05-28] MEDS: PANTOPRAZOLE 40MG TAB (PROTONIX) PO SCH (08:43)
[2017-05-28] MEDS: FLUoxetine 20 MG CAP PO SCH (08:43)
[2017-05-28] MEDS: GABAPENTIN 300 MG CAP PO SCH ×2 (08:44→21:40)
[2017-05-28] MEDS: ASPIRIN 81 MG ENTERIC TAB PO SCH (08:44)
[2017-05-28] MEDS: FUROSEMIDE 40 MG TAB PO SCH (08:45)
[2017-05-28] MEDS: SENOKOT S TAB PO SCH ×2 (08:45→21:40)
[2017-05-28 10:00] VITALS: BP 130/79
[2017-05-28] MEDS: ERTAPENEM SODIUM 1 GM in APPROPRIATE DILUENT 1 EA IV SCH (10:04)
[2017-05-28] MEDS: CARVedilol 12.5 MG TAB PO SCH ×2 (10:48→21:35)
[2017-05-28] MEDS: LISINOPRIL 20 MG TAB PO SCH (10:48)
[2017-05-28 13:50] VITALS: BP 106/60
[2017-05-28] MEDS: LATANOPROST 0.005% OPHTH SOLN 2.5 ML OU SCH (21:31)
[2017-05-28] MEDS: TOPIRAMATE (TopAMAX) 25 MG TAB PO SCH (21:40)
[2017-05-28 22:00] VITALS: BP 110/60
[2017-05-29] MEDS: LR 1,000 ML IV SCH ×2 (05:44→11:54)
[2017-05-29 06:00] VITALS: BP 120/64
[2017-05-29] MEDS: HEPARIN SOD (PORCINE) 5000 UNITS/ML VIAL SC SCH ×3 (06:10→20:46)
[2017-05-29] MEDS: LEVOTHYROXINE 75MCG TABLET (0.075MG) PO SCH (06:10)
[2017-05-29 07:00] LABS: MEAN CORPUSCULAR HEMOGLOBIN 28.1 pg (27.0-33.0); MEAN CORPUSCULAR HGB CONC 31.1 g/dl (32.0-36.5); MEAN CORPUSCULAR VOLUME 90.4 fl (80.0-96.0); PLATELET COUNT, AUTOMATED 146 10^3/uL (150-450); RED CELL DISTRIBUTION WIDTH 14.8 % (11.5-14.5); WHITE BLOOD COUNT 9.5 10^3/uL (4.0-10.0)
[2017-05-29 07:18] LABS: CREATININE FOR GFR 1.17 MG/DL (0.55-1.02); GLOMERULAR FILTRATION RATE 49.6 (>45); MAGNESIUM LEVEL 2.4 MG/DL (1.8-2.4); POTASSIUM SERUM 3.4 MEQ/L (3.5-5.1)
[2017-05-29] MEDS: PANTOPRAZOLE 40MG TAB (PROTONIX) PO SCH (08:37)
[2017-05-29] MEDS: FUROSEMIDE 20 MG TAB PO SCH (08:37)
[2017-05-29] MEDS: GABAPENTIN 300 MG CAP PO SCH ×2 (08:37→20:46)
[2017-05-29] MEDS: LISINOPRIL 20 MG TAB PO SCH (08:37)
[2017-05-29] MEDS: ASPIRIN 81 MG ENTERIC TAB PO SCH (08:37)
[2017-05-29] MEDS: SENOKOT S TAB PO SCH ×2 (08:37→20:47)
[2017-05-29] MEDS: CARVedilol 12.5 MG TAB PO SCH ×2 (08:37→20:47)
[2017-05-29] MEDS: ATORVASTATIN 20 MG TAB PO SCH (08:38)
[2017-05-29] MEDS: FLUoxetine 20 MG CAP PO SCH (08:38)
[2017-05-29] MEDS ORDERED: INFLUENZA QUADRIVALENT PF VACCINE 0.5ML SYRINGE (90686) IM ONE (09:00)
[2017-05-29] MEDS: NORCO, ANEXSIA 5/325MG TABLET (HYDROcodone/ACETAMINOPHEN) PO PRN (10:44)
[2017-05-29] MEDS: ERTAPENEM SODIUM 1 GM in APPROPRIATE DILUENT 1 EA IV SCH (10:44)
[2017-05-29 14:00] VITALS: BP 100/58
--- NOTE | 2017-05-29 16:51 | RO ---
DATE OF PROCEDURE: 05/27/2017 PREOPERATIVE DIAGNOSIS: Sigmoid colon cancer. POSTOPERATIVE DIAGNOSIS: Splenic flexure colon cancer. PROCEDURE: Laparoscopic lysis of adhesions with takedown of splenic flexure and resection of splenic flexure colon cancer with primary anastomosis. SURGEON: Dr. José Green PATIENT NAVIGATOR: Dr. Hernandez ANESTHESIA: General. ESTIMATED BLOOD LOSS: 10 mL. COMPLICATIONS: None. INDICATIONS FOR PROCEDURE: The patient is a 62-year-old female who presented for screening colonoscopy with GI. During her procedure, she was found have a mass about 50 cm in. The mass was biopsied and tattooed. She was sent to our office for evaluation. Pathology returned as adenocarcinoma, and she was planned for a laparoscopic sigmoidectomy. The risks and benefits of the procedure, not limited to but including bleeding, infection, hernia formation, damage to surrounding structures, anastomosis leak and need for further surgery discussed in detail with the patient. Informed consent was obtained and procedure was planned. DESCRIPTION OF PROCEDURE: The patient brought back to operating room three after sufficient sedation. The abdomen was sterilely prepped and draped. A Llamas catheter was placed. Next, a time-out was done to confirm proper patient, proper procedure. Following that, a 5 mm incision made in left upper quadrant, Veress needle was inserted and the abdomen was insufflated to 15 mmHg. Next, Veress needle was removed, 5 mm Optiview port was used to gain access to the abdomen. Once the abdomen was entered, the abdomen was examined. Another 5 mm port placed supraumbilically in the midline, another 5 mm port in the right lower quadrant. Using the Enseal, first with blunt dissectors the sigmoid colon was carefully examined, the omentum was carefully elevated off of it all way up the left side to the descending colon, to the splenic flexure, trying to identify where the mass was. There was no visible tattooing, so then mobilization was started. Starting at the rectosigmoid junction, the Enseal was used to take down the lateral peritoneal reflection along the sigmoid and descending colon starting distally, working all the way up towards the splenic flexure. Mobilization continued medially as far as possible. Once this was completed, there was still no definitive signs of this mass. Next, starting with the mid transverse colon, the omentum was carefully opened up and taken off of the transverse colon. The gastrocolic ligament was opened entering into the lesser sac to continue mobilization up and around the splenic flexure. Upon doing this, right at the distal transverse colon into the splenic flexure was tattooing that was visible. Splenic flexure was continued to be mobilized lateral to medial. Once this was all mobilized enough to get it over towards the midline, 10 cm midline incision was made superior to the umbilicus. Cautery was used to gain access into the abdomen. Once the abdomen was entered, the colon was brought out. A small window was created in the mesentery of the distal transverse colon and the descending colon. ANDRÉS 100 stapler was used to staple across the descending colon and the distal transverse. Next, the [place] stapler with white load was used to go across the mesentery and the specimen was removed. Next, two enterotomies were created above the staple line and a ANDRÉS 100 stapler was used to create a xvpt-by-thpx anastomosis between the distal transverse colon and the descending colon. Once this was completed, the suture line was oversewn with a couple of #3-0 silk sutures. The anastomosis was then covered with a layer of Tisseel. A #19-[place] Morris drain was placed next to the anastomosis and as it was placed back into the left upper quadrant brought out through the left lower quadrant 5 mm port site and sutured in place with a silk suture. The fascia was then reapproximated at the midline using a running #1-0 PDS suture. Skin was then brought back together with zenon. The abdomen was cleaned and dried, 4x4s and tape were applied thus ending procedure.
[2017-05-29] MEDS: tiZANidine 4 MG TAB PO PRN (18:05)
[2017-05-29] MEDS: TOPIRAMATE (TopAMAX) 25 MG TAB PO SCH (20:47)
[2017-05-29] MEDS: LATANOPROST 0.005% OPHTH SOLN 2.5 ML OU SCH (20:48)
[2017-05-29 22:00] VITALS: BP 106/62
[2017-05-30] VITALS (7 sets, daily range): BP systolic 127–136; BP diastolic 60–79; O2SAT 94–97
[2017-05-30 05:47] LABS: MEAN CORPUSCULAR HEMOGLOBIN 27.9 pg (27.0-33.0); MEAN CORPUSCULAR HGB CONC 31.6 g/dl (32.0-36.5); MEAN CORPUSCULAR VOLUME 88.3 fl (80.0-96.0); PLATELET COUNT, AUTOMATED 183 10^3/uL (150-450); RED CELL DISTRIBUTION WIDTH 14.6 % (11.5-14.5); WHITE BLOOD COUNT 11.1 10^3/uL (4.0-10.0)
[2017-05-30 06:08] LABS: CALCIUM LEVEL 8.1 MG/DL (8.8-10.2); CREATININE FOR GFR 1.02 MG/DL (0.55-1.02); GLOMERULAR FILTRATION RATE 58.1 (>45); MAGNESIUM LEVEL 2.4 MG/DL (1.8-2.4); POTASSIUM SERUM 3.3 MEQ/L (3.5-5.1)
[2017-05-30] MEDS: LEVOTHYROXINE 75MCG TABLET (0.075MG) PO SCH (06:18)
[2017-05-30] MEDS: HEPARIN SOD (PORCINE) 5000 UNITS/ML VIAL SC SCH (06:31)
[2017-05-30] MEDS: GABAPENTIN 300 MG CAP PO SCH ×2 (08:42→20:23)
[2017-05-30] MEDS: ATORVASTATIN 20 MG TAB PO SCH (08:42)
[2017-05-30] MEDS: ASPIRIN 81 MG ENTERIC TAB PO SCH (08:42)
[2017-05-30] MEDS: PANTOPRAZOLE 40MG TAB (PROTONIX) PO SCH (08:42)
[2017-05-30] MEDS: FLUoxetine 20 MG CAP PO SCH (08:42)
[2017-05-30] MEDS: SENOKOT S TAB PO SCH ×2 (08:43→20:03)
[2017-05-30] MEDS: FUROSEMIDE 40 MG TAB PO SCH (08:46)
[2017-05-30] MEDS: CARVedilol 12.5 MG TAB PO SCH ×2 (08:47→20:24)
[2017-05-30] MEDS: LISINOPRIL 20 MG TAB PO SCH (08:47)
[2017-05-30] MEDS: NORCO, ANEXSIA 5/325MG TABLET (HYDROcodone/ACETAMINOPHEN) PO PRN ×2 (08:58→18:20)
[2017-05-30] MEDS ORDERED: POTASSIUM CHLORIDE 10 MEQ SR TABLET PO ONE (12:00)
[2017-05-30] MEDS: OCTREOTIDE ACETATE 100 MCG/ML VIAL (J2354) IV SCH ×2 (12:24→20:23)
[2017-05-30] MEDS: TOPIRAMATE (TopAMAX) 25 MG TAB PO SCH (20:23)
[2017-05-30] MEDS: LATANOPROST 0.005% OPHTH SOLN 2.5 ML OU SCH (20:23)
[2017-05-30] MEDS: tiZANidine 4 MG TAB PO PRN (22:25)
[2017-05-31 01:46] VITALS: O2SAT 97
[2017-05-31] MEDS: OCTREOTIDE ACETATE 100 MCG/ML VIAL (J2354) IV SCH ×2 (03:59→11:49)
[2017-05-31] MEDS: LEVOTHYROXINE 75MCG TABLET (0.075MG) PO SCH (05:32)
[2017-05-31 06:00] VITALS: BP 133/75
[2017-05-31 06:05] LABS: MEAN CORPUSCULAR HEMOGLOBIN 28.3 pg (27.0-33.0); MEAN CORPUSCULAR HGB CONC 31.7 g/dl (32.0-36.5); MEAN CORPUSCULAR VOLUME 89.1 fl (80.0-96.0); PLATELET COUNT, AUTOMATED 163 10^3/uL (150-450); RED CELL DISTRIBUTION WIDTH 14.2 % (11.5-14.5); WHITE BLOOD COUNT 10.4 10^3/uL (4.0-10.0)
[2017-05-31 06:20] LABS: ANION GAP 5 MEQ/L (8-16); BLOOD UREA NITROGEN 12 MG/DL (7-18); CALCIUM LEVEL 7.9 MG/DL (8.8-10.2); CARBON DIOXIDE LEVEL 26 MEQ/L (21-32); CHLORIDE LEVEL 114 MEQ/L (98-107); CREATININE FOR GFR 0.88 MG/DL (0.55-1.02); GLOMERULAR FILTRATION RATE > 60.0 (>45); GLUCOSE, FASTING 155 MG/DL (80-110); MAGNESIUM LEVEL 2.3 MG/DL (1.8-2.4); POTASSIUM SERUM 3.8 MEQ/L (3.5-5.1); SODIUM LEVEL 145 MEQ/L (136-145)
[2017-05-31 08:27] VITALS: BP 133/75
[2017-05-31] MEDS: GABAPENTIN 300 MG CAP PO SCH (08:27)
[2017-05-31] MEDS: CARVedilol 12.5 MG TAB PO SCH (08:27)
[2017-05-31] MEDS: LISINOPRIL 20 MG TAB PO SCH (08:27)
[2017-05-31] MEDS: PANTOPRAZOLE 40MG TAB (PROTONIX) PO SCH (08:27)
[2017-05-31] MEDS: ATORVASTATIN 20 MG TAB PO SCH (08:27)
[2017-05-31] MEDS: SENOKOT S TAB PO SCH (08:28)
[2017-05-31] MEDS: FUROSEMIDE 20 MG TAB PO SCH (08:28)
[2017-05-31] MEDS: FLUoxetine 20 MG CAP PO SCH (08:28)
[2017-05-31 09:00] VITALS: O2SAT 96
[2017-05-31] MEDS ORDERED: NORCOTAB PO (10:41)
--- NOTE | 2017-06-04 16:02 | DSES ---
DATE OF ADMISSION: 05/27/2017 DATE OF DISCHARGE: 05/31/2017 ADMISSION DIAGNOSIS: Colon cancer. DISCHARGE DIAGNOSIS: Colon cancer. HOSPITAL COURSE: The patient is a 62-year-old female who presented on 05/27/2017, for elective colon resection for confirmed adenocarcinoma on previous colonoscopy. She came in on 05/27/2017, the plan was for a sigmoidectomy however during the procedure was found that her mass was actually at the splenic flexure. Therefore she ended up with a laparoscopic takedown of the splenic flexure with resection of the splenic flexure and primary anastomosis. Postoperatively she had a Llamas in place. NG tube had been removed and she was started on ice and water. By postoperative day #1, urine output was appropriate, Llamas catheter was removed. She was up ambulating in the room that evening and she got up in the [place] during the day. She was passing a little bit of flatus by the end of the day, on the first, therefore her diet was advanced to a full clear liquid diet. By postoperative day #2, her diet was continued to be advanced, Morris drain inside the abdomen was serosanguineous, that was removed. She continued to improve and had normal labs throughout her stay. Once she had a bowel movement on postoperative day #3, she was discharged home on 05/31/2017, in stable condition. Morris drain was removed prior to discharge. Pain was well controlled. She was discharged home with pain control and instructions to call the office with any complications. She was discharged with a regular diet as well. Instructions for no soaking her incisions for 5 days. No lifting, pushing or pulling more than 20 pounds and she was given the office number to call with any questions.
== END 2017-05-31 12:30 | disposition home or self-care (01) | DRG 330 ==
LOC: M OR 06:08 → M MS5PR 12:40 → M MSPAV 05-28 14:00
PROVIDERS: ADMIT Surgery; ATTEND Surgery
PROC: 0D1 Gastrointestinal System, Bypass (ICD-10-PCS; 2017-05-27)
PROC: 0DBN4ZZ Excision of Sigmoid Colon, Percutaneous Endoscopic Approach (ICD-10-PCS; principal; 2017-05-27 07:30)
DX: C18.7 Malignant neoplasm of sigmoid colon (principal); I13.0 Hypertensive heart and chronic kidney disease with heart failure and stage 1 through stage 4 chronic kidney disease, or unspecified chronic kidney disease; E78.5 Hyperlipidemia, unspecified; E03.9 Hypothyroidism, unspecified; F41.9 Anxiety disorder, unspecified; F32.9 Major depressive disorder, single episode, unspecified; R53.82 Chronic fatigue, unspecified; N18.3 Chronic kidney disease, stage 3 (moderate); Z79.899 Other long term (current) drug therapy; Z79.82 Long term (current) use of aspirin; M19.90 Unspecified osteoarthritis, unspecified site; I50.9 Heart failure, unspecified; I25.10 Atherosclerotic heart disease of native coronary artery without angina pectoris; I25.2 Old myocardial infarction

== ENCOUNTER 2017-07-01 02:48 | Emergency (ER) | payer MEDICARE, OTHER ==
[2017-07-01 05:03] LABS: BASO % 0.5 % (0.0-1.0); EOS # 0.3 10^3/uL (0.0-0.50); EOS % 4.4 % (0.0-3.0); HEMATOCRIT 34.5 % (36.0-47.0); HEMOGLOBIN 11.1 g/dl (12.0-16.0); IMMATURE GRANULOCYTE % 0.4 % (0-0); LYMPH # 1.3 10^3/uL (1.5-4.5); LYMPH % 17.3 % (24.0-44.0); MEAN CORPUSCULAR HEMOGLOBIN 28.4 pg (27.0-33.0); MEAN CORPUSCULAR HGB CONC 32.2 g/dl (32.0-36.5); MEAN CORPUSCULAR VOLUME 88.2 fl (80.0-96.0); MONO # 0.8 10^3/uL (0.0-0.8); MONO % 10.8 % (0.0-5.0); NEUTROPHILS # 4.9 10^3/uL (1.8-7.7); NEUTROPHILS % 66.6 % (36.0-66.0); PLATELET COUNT, AUTOMATED 149 10^3/uL (150-450); RED BLOOD COUNT 3.91 10^6/uL (4.00-5.40); WHITE BLOOD COUNT 7.3 10^3/uL (4.0-10.0)
[2017-07-01 05:15] LABS: ANION GAP 8 MEQ/L (8-16); BLOOD UREA NITROGEN 17 MG/DL (7-18); CALCIUM LEVEL 8.3 MG/DL (8.8-10.2); CARBON DIOXIDE LEVEL 25 MEQ/L (21-32); CHLORIDE LEVEL 110 MEQ/L (98-107); GLOMERULAR FILTRATION RATE 43.9 (>45); GLUCOSE, FASTING 113 MG/DL (70-100); POTASSIUM SERUM 3.2 MEQ/L (3.5-5.1); SODIUM LEVEL 143 MEQ/L (136-145)
[2017-07-01] MEDS: POTASSIUM CHLORIDE 10 MEQ SR TABLET PO (06:11)
[2017-07-01] MEDS: metroNIDAZOLE (FLAGYL) 500 MG TAB PO (08:05)
== END 2017-07-01 08:11 | disposition home or self-care (01) ==
LOC: M ED 02:48
DX: A04.72 Enterocolitis due to Clostridium difficile, not specified as recurrent (principal); I25.10 Atherosclerotic heart disease of native coronary artery without angina pectoris; N18.3 Chronic kidney disease, stage 3 (moderate); G47.33 Obstructive sleep apnea (adult) (pediatric); F32.9 Major depressive disorder, single episode, unspecified; E78.9 Disorder of lipoprotein metabolism, unspecified; Z85.038 Personal history of other malignant neoplasm of large intestine; Z95.5 Presence of coronary angioplasty implant and graft; Z79.899 Other long term (current) drug therapy; Z79.02 Long term (current) use of antithrombotics/antiplatelets
CPT/HCPCS: 80048

== ENCOUNTER 2017-08-09 15:21 | Emergency (ER) | payer MEDICARE, OTHER ==
[2017-08-09] MEDS: ADACEL/BOOSTRIX VACCINE (DIPHTH/PERTUSS/ACELL/TETANUS)0.5ML SYR (90715) IM (15:50)
== END 2017-08-09 17:10 | disposition home or self-care (01) ==
LOC: M ED 15:21
DX: T23.0 Burn of unspecified degree of wrist and hand (principal); T22.0 Burn of unspecified degree of shoulder and upper limb, except wrist and hand; T54.91XD Toxic effect of unspecified corrosive substance, accidental (unintentional), subsequent encounter; X58.XXXA Exposure to other specified factors, initial encounter; Y92.9 Unspecified place or not applicable; Y93.9 Activity, unspecified; I25.2 Old myocardial infarction; J44.9 Chronic obstructive pulmonary disease, unspecified; G47.30 Sleep apnea, unspecified; Z86.73 Personal history of transient ischemic attack (TIA), and cerebral infarction without residual deficits; F41.9 Anxiety disorder, unspecified; F32.9 Major depressive disorder, single episode, unspecified; Z79.899 Other long term (current) drug therapy
CPT/HCPCS: 90715

== ENCOUNTER → 2017-09-08 | Outpatient (REF) | payer MEDICARE, OTHER ==
[2017-09-08 11:17] LABS: HEMATOCRIT 40.7 % (36.0-47.0); HEMOGLOBIN 12.6 g/dl (12.0-15.5); MEAN CORPUSCULAR HEMOGLOBIN 26.8 pg (27.0-33.0); MEAN CORPUSCULAR VOLUME 86.4 fl (80.0-96.0); PLATELET COUNT, AUTOMATED 187 10^3/uL (150-450); RED BLOOD COUNT 4.71 10^6/uL (4.00-5.40); RED CELL DISTRIBUTION WIDTH 13.2 % (11.5-14.5); WHITE BLOOD COUNT 8.2 10^3/uL (4.0-10.0)
[2017-09-08 11:37] LABS: ESTIMATED AVERAGE GLUCOSE 137 MG/DL (60-110); HEMOGLOBIN A1c 6.4 %
[2017-09-08 11:39] LABS: ALBUMIN 3.6 GM/DL (3.2-5.2); ALBUMIN/GLOBULIN RATIO 0.95 (1.00-1.93); ALKALINE PHOSPHATASE 172 U/L (45-117); ALT/SGPT 13 U/L (12-78); ANION GAP 6 MEQ/L (8-16); AST/SGOT 8 U/L (7-37); BILIRUBIN,TOTAL 0.2 MG/DL (0.2-1.0); BLOOD UREA NITROGEN 22 MG/DL (7-18); CALCIUM LEVEL 8.9 MG/DL (8.8-10.2); CARBON DIOXIDE LEVEL 28 MEQ/L (21-32); CHLORIDE LEVEL 110 MEQ/L (98-107); CHOLESTEROL LEVEL 230 MG/DL (<200); CHOLESTEROL RISK RATIO 4.693 (<5); CREATININE FOR GFR 1.26 MG/DL (0.55-1.30); GLOMERULAR FILTRATION RATE 45.5 (>45); GLUCOSE, FASTING 115 MG/DL (70-100); HDL CHOLESTEROL 49 MG/DL (>40); NON-HDL-C 181 MG/DL; SODIUM LEVEL 144 MEQ/L (136-145); TOTAL PROTEIN 7.4 GM/DL (6.4-8.2); TRIGLYCERIDES LEVEL 205 MG/DL (<150)
[2017-09-08 11:49] LABS: CREATININE, URINE < 13.0 MG/DL; MALB URINE SIEMENS < 5.0 MG/L
== END ==
LOC: M SFHCLERA 09:18
DX: E03.9 Hypothyroidism, unspecified (principal); N18.3 Chronic kidney disease, stage 3 (moderate); E78.2 Mixed hyperlipidemia; R73.01 Impaired fasting glucose; I25.2 Old myocardial infarction
CPT/HCPCS: 84443

== ENCOUNTER → 2017-09-17 | Outpatient (REF) | payer MEDICARE, OTHER ==
[2017-09-18 08:50] LABS: CARCINOEMBRYONIC ANTIGEN 1.3 NG/ML (<2.5)
== END ==
LOC: M LAB REF 13:48
DX: C18.9 Malignant neoplasm of colon, unspecified (principal)
CPT/HCPCS: 82378

== ENCOUNTER 2017-09-23 13:14 | Emergency (ER) | payer MEDICARE, OTHER ==
[2017-09-23 14:29] LABS: HEMATOCRIT 39.3 % (36.0-47.0); HEMOGLOBIN 12.6 g/dl (12.0-15.5); MEAN CORPUSCULAR HEMOGLOBIN 27.2 pg (27.0-33.0); MEAN CORPUSCULAR HGB CONC 32.1 g/dl (32.0-36.5); MEAN CORPUSCULAR VOLUME 84.7 fl (80.0-96.0); PLATELET COUNT, AUTOMATED 150 10^3/uL (150-450); RED BLOOD COUNT 4.64 10^6/uL (4.00-5.40); RED CELL DISTRIBUTION WIDTH 13.3 % (11.5-14.5); WHITE BLOOD COUNT 6.7 10^3/uL (4.0-10.0)
[2017-09-23 14:55] LABS: ANION GAP 5 MEQ/L (8-16); BLOOD UREA NITROGEN 16 MG/DL (7-18); CALCIUM LEVEL 8.9 MG/DL (8.8-10.2); CARBON DIOXIDE LEVEL 27 MEQ/L (21-32); CHLORIDE LEVEL 112 MEQ/L (98-107); CREATININE FOR GFR 1.19 MG/DL (0.55-1.30); GLOMERULAR FILTRATION RATE 48.6 (>45); GLUCOSE, FASTING 99 MG/DL (70-100); POTASSIUM SERUM 3.5 MEQ/L (3.5-5.1); SODIUM LEVEL 144 MEQ/L (136-145)
== END 2017-09-23 17:01 | disposition home or self-care (01) ==
LOC: M ED 13:14
DX: K62.5 Hemorrhage of anus and rectum (principal); I25.10 Atherosclerotic heart disease of native coronary artery without angina pectoris; I12.9 Hypertensive chronic kidney disease with stage 1 through stage 4 chronic kidney disease, or unspecified chronic kidney disease; N18.3 Chronic kidney disease, stage 3 (moderate); E78.9 Disorder of lipoprotein metabolism, unspecified; E66.9 Obesity, unspecified; Z85.038 Personal history of other malignant neoplasm of large intestine; Z90.49 Acquired absence of other specified parts of digestive tract; Z98.890 Other specified postprocedural states; Z79.890 Hormone replacement therapy; Z79.899 Other long term (current) drug therapy; Z79.01 Long term (current) use of anticoagulants
CPT/HCPCS: 80048

== ENCOUNTER → 2017-10-28 | Outpatient (REF) | payer MEDICARE, OTHER ==
[2017-10-28 18:19] LABS: FREE T4 1.08 NG/DL (0.76-1.46)
== END ==
LOC: M SFHCLERA 11:04
DX: R94.6 Abnormal results of thyroid function studies (principal)
CPT/HCPCS: 84443

== ENCOUNTER → 2017-11-12 | Outpatient (CLI) | payer MEDICARE, OTHER | LOC: M RAD 09:36 | DX: Z12.31 Encounter for screening mammogram for malignant neoplasm of breast (principal); M47.812 Spondylosis without myelopathy or radiculopathy, cervical region; M12.88 Other specific arthropathies, not elsewhere classified, other specified site; M50.21 Other cervical disc displacement, high cervical region; M50.221 Other cervical disc displacement at C4-C5 level; M50.222 Other cervical disc displacement at C5-C6 level; M50.223 Other cervical disc displacement at C6-C7 level; M25.78 Osteophyte, vertebrae; G95.0 Syringomyelia and syringobulbia | CPT/HCPCS: 72141 ==

== ENCOUNTER → 2017-11-12 | Outpatient (CLI) | payer MEDICARE, OTHER | LOC: M RAD 09:43 | DX: Z12.31 Encounter for screening mammogram for malignant neoplasm of breast (principal); R94.6 Abnormal results of thyroid function studies ==

== ENCOUNTER 2017-12-02 07:08 | Day surgery (SDC) | payer MEDICARE, OTHER ==
[~2017-12-02 07:08] MED LIST changes: -ASPI1TAB PO; -ATOR1TAB21 PO; -CARV6.25 PO; -CLOP75TA2 PO; -FLUO20CA19 PO; -FURO20TA2 PO; -HYDR50TA70 PO; -LASI20TA PO; -LEVO75TA4 PO; +LIDOCAINE 2% MDV 20 ML VIAL As Ordered; -LISI-538 PO; -LISI-542 PO; -MAGN1TAB25 PO; -NEUR300C PO; -NITR0.4S14 SL; -PROC10TA PO; +PROPOFOL 200 MG/20 ML VIAL As Ordered; -RANO5TAB PO; -TOPA100T12 PO; -TOPI25CA PO; -ZANA4TAB PO; -ZONI25CA2 PO
[2017-12-02] MEDS: NS 1,000 ML IV (07:33)
[2017-12-02] MEDS ORDERED: PROPOFOL 200 MG/20 ML VIAL As Ordered (08:16)
== END 2017-12-02 09:01 | disposition home or self-care (01) ==
LOC: M OPP 07:08
DX: K92.1 Melena (principal); Z85.038 Personal history of other malignant neoplasm of large intestine; D12.2 Benign neoplasm of ascending colon; K64.1 Second degree hemorrhoids; I11.0 Hypertensive heart disease with heart failure; I25.10 Atherosclerotic heart disease of native coronary artery without angina pectoris; Z95.5 Presence of coronary angioplasty implant and graft; I25.2 Old myocardial infarction; E78.5 Hyperlipidemia, unspecified; I50.9 Heart failure, unspecified; R01.1 Cardiac murmur, unspecified; I63.9 Cerebral infarction, unspecified; E11.9 Type 2 diabetes mellitus without complications; E03.9 Hypothyroidism, unspecified; M19.90 Unspecified osteoarthritis, unspecified site; M54.9 Dorsalgia, unspecified; F41.9 Anxiety disorder, unspecified; F32.9 Major depressive disorder, single episode, unspecified; G43.909 Migraine, unspecified, not intractable, without status migrainosus; Z86.73 Personal history of transient ischemic attack (TIA), and cerebral infarction without residual deficits; R53.82 Chronic fatigue, unspecified; G47.8 Other sleep disorders; G47.30 Sleep apnea, unspecified; R06.83 Snoring; N18.3 Chronic kidney disease, stage 3 (moderate); R32 Unspecified urinary incontinence; Z79.82 Long term (current) use of aspirin; Z79.899 Other long term (current) drug therapy; Z79.02 Long term (current) use of antithrombotics/antiplatelets
CPT/HCPCS: 45380

== ENCOUNTER → 2018-01-20 | Outpatient (CLI) | payer MEDICARE, OTHER | LOC: M SLEEP 18:47 | DX: G47.30 Sleep apnea, unspecified (principal) | CPT/HCPCS: 95810 ==

== ENCOUNTER 2018-04-02 17:43 | Emergency (ER) | payer MEDICARE, OTHER | END 2018-04-02 18:39 | disposition home or self-care (01) | LOC: M ED 17:43 | DX: S60.211A Contusion of right wrist, initial encounter (principal); X58.XXXA Exposure to other specified factors, initial encounter; Y92.098 Other place in other non-institutional residence as the place of occurrence of the external cause; I10 Essential (primary) hypertension; I25.2 Old myocardial infarction; E78.00 Pure hypercholesterolemia, unspecified; J44.9 Chronic obstructive pulmonary disease, unspecified; G47.33 Obstructive sleep apnea (adult) (pediatric); Z85.048 Personal history of other malignant neoplasm of rectum, rectosigmoid junction, and anus; Z87.442 Personal history of urinary calculi; Z87.440 Personal history of urinary (tract) infections; M54.9 Dorsalgia, unspecified; E03.9 Hypothyroidism, unspecified; F41.9 Anxiety disorder, unspecified; F32.9 Major depressive disorder, single episode, unspecified; Z86.73 Personal history of transient ischemic attack (TIA), and cerebral infarction without residual deficits; Z79.899 Other long term (current) drug therapy; Z79.02 Long term (current) use of antithrombotics/antiplatelets; Z95.5 Presence of coronary angioplasty implant and graft | CPT/HCPCS: 73110 ==

== ENCOUNTER 2018-04-20 12:36 | Inpatient (IN) | payer MEDICARE, OTHER ==
[2018-04-20 13:39] LABS: BASO # 0.1 10^3/uL (0.0-0.2); BASO % 0.6 % (0.0-1.0); EOS # 0.2 10^3/uL (0.0-0.50); EOS % 2.4 % (0.0-3.0); HEMATOCRIT 38.7 % (36.0-47.0); HEMOGLOBIN 12.3 g/dl (12.0-15.5); IMMATURE GRANULOCYTE % 0.4 % (0-3.0); LYMPH % 24.5 % (24.0-44.0); MEAN CORPUSCULAR HEMOGLOBIN 26.9 pg (27.0-33.0); MEAN CORPUSCULAR HGB CONC 31.8 g/dl (32.0-36.5); MEAN CORPUSCULAR VOLUME 84.5 fl (80.0-96.0); MONO # 0.5 10^3/uL (0.0-0.8); MONO % 5.7 % (0.0-5.0); NEUTROPHILS # 5.4 10^3/uL (1.8-7.7); NEUTROPHILS % 66.4 % (36.0-66.0); PLATELET COUNT, AUTOMATED 167 10^3/uL (150-450); RED BLOOD COUNT 4.58 10^6/uL (4.00-5.40); RED CELL DISTRIBUTION WIDTH 14.6 % (11.5-14.5); WHITE BLOOD COUNT 8.1 10^3/uL (4.0-10.0)
[2018-04-20 13:43] LABS: ANION GAP 8 MEQ/L (8-16); BLOOD UREA NITROGEN 25 MG/DL (7-18); CALCIUM LEVEL 8.6 MG/DL (8.8-10.2); CARBON DIOXIDE LEVEL 24 MEQ/L (21-32); CHLORIDE LEVEL 112 MEQ/L (98-107); CHOLESTEROL LEVEL 171 MG/DL (<200); CHOLESTEROL RISK RATIO 3.288 (<5); CPK CREATINE PHOSPHOKINASE 94 U/L (26-192); CREATININE FOR GFR 1.44 MG/DL (0.55-1.30); GLUCOSE, FASTING 97 MG/DL (70-100); HDL CHOLESTEROL 52 MG/DL (>40); LDL CHOLESTEROL 94 MG/DL (<100); MB/CK RELATIVE INDEX 2.77 (< OR =4); NON-HDL-C 119 MG/DL; POTASSIUM SERUM 3.8 MEQ/L (3.5-5.1); SODIUM LEVEL 144 MEQ/L (136-145); TRIGLYCERIDES LEVEL 124 MG/DL (<150); TROPONIN I < 0.02 NG/ML (< 0.10)
[2018-04-20 13:45] LABS: INR 0.98; PROTHROMBIN TIME 13.1 SECONDS (12.1-14.4)
[2018-04-20 13:46] LABS: PARTIAL THROMBOPLASTIN TIME 26.1 SECONDS (25.4-37.6)
[2018-04-20] MEDS ORDERED: ONDANSETRON 4 MG ORAL DISINTEGRATING TAB (Q0162 PER 1MG) PO (16:00)
[2018-04-20] MEDS ORDERED: PROCHLORPERAZINE 5 MG TAB (S0183) PO (16:00)
[2018-04-20] MEDS ORDERED: hydrOXYzine 50 MG TAB PO (16:15)
[2018-04-20] MEDS ORDERED: POLYVINYL ALCOHOL OPHTH SOLN 15 ML(LIQUITEARS) OU (16:15)
[2018-04-20] MEDS: NS 1,000 ML IV (17:56)
[2018-04-20 18:10] LABS: C REACTIVE PROTEIN QUANTITATIV 1.04 MG/DL (0.00-0.30)
[2018-04-20 18:21] LABS: CPK CREATINE PHOSPHOKINASE 73 U/L (26-192); MB/CK RELATIVE INDEX 2.47 (< OR =4); TROPONIN I < 0.02 NG/ML (< 0.10)
[2018-04-20 18:43] LABS: ERYTHROCYTE SEDIMENTATION RATE 18 mm/hr (0-30)
[2018-04-20] MEDS ORDERED: HEPARIN SOD (PORCINE) 5000 UNITS/ML VIAL SC (22:00)
[2018-04-21 00:34] LABS: CPK CREATINE PHOSPHOKINASE 58 U/L (26-192); MB/CK RELATIVE INDEX 2.76 (< OR =4); TROPONIN I < 0.02 NG/ML (< 0.10)
[2018-04-21] MEDS: HEPARIN SOD (PORCINE) 5000 UNITS/ML VIAL SC ×3 (01:56→21:23)
[2018-04-21] MEDS: RANOLAZINE 500 MG ER TAB PO ×3 (01:56→21:23)
[2018-04-21] MEDS: GABAPENTIN 300 MG CAP PO ×2 (01:57→21:23)
[2018-04-21] MEDS: TOPIRAMATE (TopAMAX) 25 MG TAB PO ×2 (01:57→21:23)
[2018-04-21] MEDS: CARVedilol 12.5 MG TAB PO ×3 (01:57→21:24)
[2018-04-21 04:54] LABS: AMORPHOUS SEDIMENT SMALL (NEGATIVE); APPEARANCE, URINE CLOUDY (CLEAR); BACTERIA, URINE AUTO 2+ (NEGATIVE); BILIRUBIN, URINE AUTO NEGATIVE (NEGATIVE); BLOOD, URINE BLOOD NEGATIVE (NEGATIVE); COLOR, URINE YELLOW (YELLOW); GLUCOSE, URINE (UA) AUTO NEGATIVE (NEGATIVE); KETONE, URINE AUTO NEGATIVE (NEGATIVE); LEUKOCYTE ESTERASE, URINE AUTO TRACE (NEGATIVE); MUCUS, URINE SMALL (NEGATIVE); NITRITE, URINE AUTO NEGATIVE (NEGATIVE); PROTEIN, URINE AUTO NEGATIVE (NEGATIVE); RBC, URINE AUTO 7 /HPF (0-3); SPECIFIC GRAVITY URINE AUTO 1.016 (1.002-1.035); SQUAMOUS EPITHELIAL CELL UR AU 4 /HPF (0-6); UROBILINOGEN, URINE AUTO 0.2 mg/dL (0.0-2.0); WBC, URINE AUTO 7 /HPF (0-3)
[2018-04-21 05:08] LABS: OSMOLALITY URINE 573 MOSM/KG (500-800)
[2018-04-21 05:12] LABS: CHLORIDE,RANDOM URINE 59 MEQ/L; POTASSIUM RANDOM URINE 34.5 MEQ/L; SODIUM,RANDOM URINE 41 MEQ/L; TOTAL PROTEIN,RANDOM URINE 14.4 MG/DL (0.0-12.0)
[2018-04-21 05:42] LABS: BASO % 0.4 % (0.0-1.0); EOS # 0.2 10^3/uL (0.0-0.50); HEMATOCRIT 36.2 % (36.0-47.0); HEMOGLOBIN 11.3 g/dl (12.0-15.5); IMMATURE GRANULOCYTE % 0.4 % (0-3.0); LYMPH % 28.9 % (24.0-44.0); MEAN CORPUSCULAR HEMOGLOBIN 26.5 pg (27.0-33.0); MEAN CORPUSCULAR HGB CONC 31.2 g/dl (32.0-36.5); MEAN CORPUSCULAR VOLUME 84.8 fl (80.0-96.0); MONO # 0.4 10^3/uL (0.0-0.8); MONO % 5.5 % (0.0-5.0); NEUTROPHILS # 4.3 10^3/uL (1.8-7.7); NEUTROPHILS % 61.8 % (36.0-66.0); PLATELET COUNT, AUTOMATED 140 10^3/uL (150-450); RED BLOOD COUNT 4.27 10^6/uL (4.00-5.40); RED CELL DISTRIBUTION WIDTH 14.5 % (11.5-14.5); WHITE BLOOD COUNT 6.9 10^3/uL (4.0-10.0)
[2018-04-21] MEDS: LEVOTHYROXINE 75MCG TABLET (0.075MG) PO (06:02)
[2018-04-21] MEDS: NS 1,000 ML IV (06:02)
[2018-04-21 06:07] LABS: ESTIMATED AVERAGE GLUCOSE 128 MG/DL (60-110); HEMOGLOBIN A1c 6.1 %
[2018-04-21 06:10] LABS: ANION GAP 6 MEQ/L (8-16); BLOOD UREA NITROGEN 20 MG/DL (7-18); CALCIUM LEVEL 8.2 MG/DL (8.8-10.2); CARBON DIOXIDE LEVEL 25 MEQ/L (21-32); CHLORIDE LEVEL 112 MEQ/L (98-107); CREATININE FOR GFR 1.14 MG/DL (0.55-1.30); GLOMERULAR FILTRATION RATE 51.1 (>45); GLUCOSE, FASTING 98 MG/DL (70-100); POTASSIUM SERUM 3.5 MEQ/L (3.5-5.1); SODIUM LEVEL 143 MEQ/L (136-145)
[2018-04-21 07:40] LABS: CPK CREATINE PHOSPHOKINASE 58 U/L (26-192); MB/CK RELATIVE INDEX 2.93 (< OR =4); TROPONIN I < 0.02 NG/ML (< 0.10)
[2018-04-21] MEDS: FLUBLOK(EGG FREE)(QUAD)INFLUENZA VACC 0.5ML SYRINGE (90682)18YRS&OLDER IM (08:55)
[2018-04-21] MEDS: FLUoxetine 20 MG CAP PO (08:56)
[2018-04-21] MEDS: ASPIRIN 81 MG ENTERIC TAB PO (08:59)
[2018-04-21] MEDS: ATORVASTATIN 20 MG TAB PO (08:59)
[2018-04-21] MEDS: CLOPIDOGREL 75 MG TAB PO (08:59)
[2018-04-21] MEDS ORDERED: LISINOPRIL 20 MG TAB PO (09:00)
[2018-04-21] MEDS ORDERED: SLF 3 ML SYR IV (11:30)
[2018-04-21] MEDS: SLF 3 ML SYR IV ×2 (14:00→21:25)
[2018-04-22] MEDS: LEVOTHYROXINE 75MCG TABLET (0.075MG) PO (05:56)
[2018-04-22] MEDS: SLF 3 ML SYR IV (05:56)
[2018-04-22 06:03] LABS: BASO % 0.5 % (0.0-1.0); EOS # 0.2 10^3/uL (0.0-0.50); EOS % 2.7 % (0.0-3.0); HEMATOCRIT 37.4 % (36.0-47.0); HEMOGLOBIN 11.8 g/dl (12.0-15.5); IMMATURE GRANULOCYTE % 0.6 % (0-3.0); LYMPH # 1.5 10^3/uL (1.5-4.5); LYMPH % 19.2 % (24.0-44.0); MEAN CORPUSCULAR HEMOGLOBIN 26.5 pg (27.0-33.0); MEAN CORPUSCULAR HGB CONC 31.6 g/dl (32.0-36.5); MONO # 0.4 10^3/uL (0.0-0.8); MONO % 5.4 % (0.0-5.0); NEUTROPHILS # 5.7 10^3/uL (1.8-7.7); NEUTROPHILS % 71.6 % (36.0-66.0); PLATELET COUNT, AUTOMATED 134 10^3/uL (150-450); RED BLOOD COUNT 4.45 10^6/uL (4.00-5.40); WHITE BLOOD COUNT 7.9 10^3/uL (4.0-10.0)
[2018-04-22 06:28] LABS: ANION GAP 6 MEQ/L (8-16); BLOOD UREA NITROGEN 14 MG/DL (7-18); CALCIUM LEVEL 8.3 MG/DL (8.8-10.2); CARBON DIOXIDE LEVEL 24 MEQ/L (21-32); CHLORIDE LEVEL 113 MEQ/L (98-107); CREATININE FOR GFR 1.12 MG/DL (0.55-1.30); GLOMERULAR FILTRATION RATE 52.1 (>45); GLUCOSE, FASTING 117 MG/DL (70-100); POTASSIUM SERUM 3.6 MEQ/L (3.5-5.1); SODIUM LEVEL 143 MEQ/L (136-145)
[2018-04-22] MEDS: ATORVASTATIN 20 MG TAB PO (09:07)
[2018-04-22] MEDS: RANOLAZINE 500 MG ER TAB PO (09:07)
[2018-04-22] MEDS: CLOPIDOGREL 75 MG TAB PO (09:07)
[2018-04-22] MEDS: CARVedilol 12.5 MG TAB PO (09:08)
[2018-04-22] MEDS: FLUoxetine 20 MG CAP PO (09:08)
[2018-04-22] MEDS: ASPIRIN 81 MG ENTERIC TAB PO (09:08)
[2018-04-27 00:07] LABS: ANCA-ATYPICAL <1:20 titer (Neg:<1:20); ANTI DOUBLE STRAND-DNA AB <1 IU/mL (0-9); ANTI THROMBIN 3 ANTIGEN IMMUNO 94 % (72-124); ANTI THROMBIN 3 FUNCT ACTIVITY 132 % (75-135); ANTINUCLEAR ANTIBODIES DIRECT Positive (Negative); CARDIOLIPIN IGA ANTIBODY <9 APL U/mL (0-11); CARDIOLIPIN IGG ANTIBODY <9 GPL U/mL (0-14); CARDIOLIPIN IGM ANTIBODY <9 MPL U/mL (0-12); CYTOPLASMIC NEUTROP AB ANCA-C <1:20 titer (Neg:<1:20); HOMOCYST(E)INE SERUM 15.6 umol/L (0.0-15.0); PERINUCLEAR AB ANCA-P <1:20 titer (Neg:<1:20); PROTEIN C ANTIGEN 120 % (60-150); PROTEIN S ANTIGEN FREE 109 % (57-157); PROTEIN S ANTIGEN TOTAL 106 % (60-150); RNP ANTIBODIES <0.2 AI (0.0-0.9); SJOGREN'S ANTI SS-A <0.2 AI (0.0-0.9); SJOGREN'S ANTI SS-B <0.2 AI (0.0-0.9); SMITH ANTIBODIES <0.2 AI (0.0-0.9)
[2018-04-27 10:07] LABS: DRVV SCREEN 50.1 SEC
[2018-04-27 10:24] LABS: PTT LUPUS TYPE ANTICOAG SCREEN 1.2 (0-1.2)
[2018-04-27 10:33] LABS: DRVV CONFIRM 40.9 SEC; LUPUS CONFIRM RATIO 1.1
[2018-04-27 10:36] LABS: NORMALIZED RATIO 1.09 (0.00-1.20)
== END 2018-04-22 10:24 | disposition home or self-care (01) | DRG 69 ==
LOC: M PCU 04-21 00:19 → M ED 12:36 → M ED INP 18:01
DX: G45.9 Transient cerebral ischemic attack, unspecified (principal); R29.810 Facial weakness; E03.9 Hypothyroidism, unspecified; F41.9 Anxiety disorder, unspecified; F32.9 Major depressive disorder, single episode, unspecified; G43.909 Migraine, unspecified, not intractable, without status migrainosus; N18.3 Chronic kidney disease, stage 3 (moderate); I25.2 Old myocardial infarction; I20.9 Angina pectoris, unspecified; I12.9 Hypertensive chronic kidney disease with stage 1 through stage 4 chronic kidney disease, or unspecified chronic kidney disease; E78.5 Hyperlipidemia, unspecified; Z79.899 Other long term (current) drug therapy; Z79.82 Long term (current) use of aspirin; I27.20 Pulmonary hypertension, unspecified; R19.7 Diarrhea, unspecified; R11.0 Nausea; Z85.038 Personal history of other malignant neoplasm of large intestine

== ENCOUNTER → 2018-05-19 | Outpatient (CLI) | payer MEDICARE, OTHER ==
[2018-05-19 12:57] LABS: HEMOGLOBIN 12.3 g/dl (12.0-15.5); MEAN CORPUSCULAR HEMOGLOBIN 27.1 pg (27.0-33.0); MEAN CORPUSCULAR HGB CONC 31.5 g/dl (32.0-36.5); MEAN CORPUSCULAR VOLUME 85.9 fl (80.0-96.0); PLATELET COUNT, AUTOMATED 184 10^3/uL (150-450); RED BLOOD COUNT 4.54 10^6/uL (4.00-5.40); RED CELL DISTRIBUTION WIDTH 15.1 % (11.5-14.5)
[2018-05-19 14:28] LABS: ALBUMIN 3.2 GM/DL (3.2-5.2); ALBUMIN/GLOBULIN RATIO 0.86 (1.00-1.93); ALKALINE PHOSPHATASE 180 U/L (45-117); ALT/SGPT 17 U/L (12-78); ANION GAP 9 MEQ/L (8-16); AST/SGOT 11 U/L (7-37); BILIRUBIN,TOTAL 0.4 MG/DL (0.2-1.0); BLOOD UREA NITROGEN 21 MG/DL (7-18); CALCIUM LEVEL 8.3 MG/DL (8.8-10.2); CARBON DIOXIDE LEVEL 25 MEQ/L (21-32); CHLORIDE LEVEL 111 MEQ/L (98-107); CREATININE FOR GFR 1.31 MG/DL (0.55-1.30); FREE T4 1.07 NG/DL (0.76-1.46); GLOMERULAR FILTRATION RATE 43.4 (>45); GLUCOSE, FASTING 91 MG/DL (70-100); POTASSIUM SERUM 3.9 MEQ/L (3.5-5.1); SODIUM LEVEL 145 MEQ/L (136-145); TOTAL PROTEIN 6.9 GM/DL (6.4-8.2)
[2018-05-19 15:13] LABS: IMMUNOGLOBULIN A 264 MG/DL (70-400)
[2018-05-21 00:07] LABS: TISSUE TRANSGLUTAMINASE IgA <2 U/mL (0-3)
== END ==
LOC: M LAB 11:59
DX: R19.7 Diarrhea, unspecified (principal); Z97.8 Presence of other specified devices
CPT/HCPCS: 74018

== ENCOUNTER → 2018-06-24 | Outpatient (CLI) | payer MEDICARE, OTHER ==
[~2018-06-24] MED LIST changes: +ASPI1CHW2 PO; +ASPI1TAB PO; +ATOR1TAB21 PO; +BACIOIN7 TOP; +CARV6.25 PO; +CLOP75TA2 PO; +DICY20TA11 PO; +FLAG500T PO; +FLUO20CA19 PO; +FLUO20CA8 PO; +FURO20TA2 PO; +HYDR50TA70 PO; +LASI20TA3 PO; +LEVO75TA4 PO; -LIDOCAINE 2% MDV 20 ML VIAL As Ordered; +LISI-538 PO; +LISI-542 PO; +MAGN1TAB25 PO; +NEUR300C PO; +NITR0.4S14 SL; +NORCOTAB PO; +PLAV1TAB2 PO; +PROC10TA4 PO; -PROPOFOL 200 MG/20 ML VIAL As Ordered; +RANO5TAB PO; +REFR0.5D8 OU; +TIZA4CAP PO; +TOPA100T12 PO; +TOPI25CA PO; +ZANA4TAB PO; +ZOFR4TAB14 PO; +ZONI25CA2 PO
[2018-06-24 18:04] LABS: BASO # 0.1 10^3/uL (0.0-0.2); BASO % 0.7 % (0.0-1.0); EOS # 0.2 10^3/uL (0.0-0.50); EOS % 1.9 % (0.0-3.0); HEMATOCRIT 40.9 % (36.0-47.0); HEMOGLOBIN 12.7 g/dl (12.0-15.5); LYMPH # 2.4 10^3/uL (1.5-4.5); LYMPH % 28.7 % (24.0-44.0); MEAN CORPUSCULAR HEMOGLOBIN 27.3 pg (27.0-33.0); MEAN CORPUSCULAR HGB CONC 31.1 g/dl (32.0-36.5); MEAN CORPUSCULAR VOLUME 87.8 fl (80.0-96.0); MONO # 0.5 10^3/uL (0.0-0.8); MONO % 5.4 % (0.0-5.0); NEUTROPHILS # 5.2 10^3/uL (1.8-7.7); NEUTROPHILS % 62.8 % (36.0-66.0); PLATELET COUNT, AUTOMATED 198 10^3/uL (150-450); RED BLOOD COUNT 4.66 10^6/uL (4.00-5.40); WHITE BLOOD COUNT 8.3 10^3/uL (4.0-10.0)
[2018-06-24 18:13] LABS: ALBUMIN 3.4 GM/DL (3.2-5.2); BILIRUBIN,TOTAL 0.4 MG/DL (0.2-1.0); CALCIUM LEVEL 8.9 MG/DL (8.8-10.2); CREATININE FOR GFR 1.08 MG/DL (0.55-1.30); GLOMERULAR FILTRATION RATE 54.2 (>45); TOTAL PROTEIN 7.1 GM/DL (6.4-8.2)
== END ==
LOC: M LAB 16:48
PROVIDERS: ATTEND Physician Assistant Medical
DX: R19.4 Change in bowel habit (principal)

== ENCOUNTER 2018-07-02 09:08 | Day surgery (SDC) | payer MEDICARE, OTHER ==
[~2018-07-02] VITALS: Ht 160 cm; Wt 81.6 kg
[2018-07-02] MEDS ORDERED: PROPOFOL 200 MG/20 ML VIAL As Ordered ONE ×2 (10:42→11:11)
[2018-07-02] MEDS ORDERED: LIDOCAINE 2% INJ 100 MG/5 ML SDV (FOR ANES.) As Ordered ONE (10:42)
[2018-07-02] MEDS ORDERED: NS 1,000 ML IV ONE (11:15)
--- NOTE | 2018-07-02 11:44 | ROOR ---
Patient Name: Yasmin Calderón Procedure Date: 07/02/2018 11:02 AM Date of : 1955 Age: 63 Room: [facility] Gender: Female Note Status: Finalized Procedure: Colonoscopy Indications: Change in bowel habits Providers: Juice LOMELI MD Referring MD: SCOTT Medina PA-C Requesting Provider: Medicines: Monitored Anesthesia Care Complications: No immediate complications. Procedure: Pre-Anesthesia Assessment: - The heart rate, respiratory rate, oxygen saturations, blood pressure, adequacy of pulmonary ventilation, and response to care were monitored throughout the procedure. The Colonoscope was introduced through the anus and advanced to the cecum, identified by appendiceal orifice and ileocecal valve. The colonoscopy was performed without difficulty. The patient tolerated the procedure well. The quality of the bowel preparation was good. Findings: The perianal and digital rectal examinations were normal. There was evidence of a prior functional end-to-end colo-colonic anastomosis at the splenic flexure. This was characterized by healthy appearing mucosa. Two sessile polyps were found in the distal transverse colon. The polyps were 4 to 12 mm in size. These polyps were removed with a cold snare. Resection and retrieval were complete. To prevent bleeding after the polypectomy, five hemostatic clips were successfully placed. There was no bleeding at the end of the procedure. Internal hemorrhoids were found during retroflexion. The hemorrhoids were medium-sized. The exam was otherwise without abnormality on direct and retroflexion views. Impression: - Functional end-to-end colo-colonic anastomosis. widely patent in the splenic flexure, characterized by healthy appearing mucosa. - Two 4 to 12 mm polyps in the distal transverse colon, removed with a cold snare. Resected and retrieved. Clips were placed. - Internal hemorrhoids. - The examination was otherwise normal on direct and retroflexion views. Recommendation: - Repeat colonoscopy in 3 years for surveillance. - Telephone endoscopist for pathology results in 2 weeks. Juice Lomeli MD Juice LOMELI MD 07/02/2018 11:43:38 AM This report has been signed electronically. Number of Addenda: 0 Note Initiated On: 07/02/2018 11:02 AM Estimated Blood Loss: Estimated blood loss: none.
[2018-07-02 12:11] VITALS: BP 111/70
== END 2018-07-02 12:12 | disposition home or self-care (01) ==
LOC: M OPP 09:08
PROVIDERS: ATTEND Internal Medicine Gastroenterology
DX: Z98.0 Intestinal bypass and anastomosis status (principal); D12.3 Benign neoplasm of transverse colon; K64.8 Other hemorrhoids; E03.9 Hypothyroidism, unspecified; E78.00 Pure hypercholesterolemia, unspecified; Z86.010 Personal history of colon polyps; Z85.038 Personal history of other malignant neoplasm of large intestine; I31.3 Pericardial effusion (noninflammatory); I42.9 Cardiomyopathy, unspecified; I25.10 Atherosclerotic heart disease of native coronary artery without angina pectoris; N18.3 Chronic kidney disease, stage 3 (moderate); Z86.73 Personal history of transient ischemic attack (TIA), and cerebral infarction without residual deficits; Z80.0 Family history of malignant neoplasm of digestive organs

== ENCOUNTER → 2018-08-26 | Outpatient (REF) | payer MEDICARE, OTHER ==
[~2018-08-26] MED LIST changes: -ASPI1TAB PO; +ASPI81TA26 PO; +HYDR-3715 PO; -MAGN1TAB25 PO; +MAGN1TAB26 PO; -NORCOTAB PO
== END ==
LOC: M SFHCLACO 15:09
PROVIDERS: ATTEND Family Medicine
DX: Z01.419 Encounter for gynecological examination (general) (routine) without abnormal findings (principal); Z12.11 Encounter for screening for malignant neoplasm of colon
CPT/HCPCS: 82270; 87070; G0101; G0123

== ENCOUNTER 2018-09-28 17:26 | Emergency (ER) | payer MEDICARE, OTHER ==
[~2018-09-28] VITALS: Ht 160 cm; Wt 72.7 kg
[2018-09-28] MEDS ORDERED: NS 1,000 ML IV ONE ×2 (18:30→19:45)
[2018-09-28 19:01] LABS: BASO % 0.6 % (0.0-1.0); EOS # 0.2 10^3/uL (0.0-0.50); EOS % 2.5 % (0.0-3.0); HEMATOCRIT 38.9 % (36.0-47.0); HEMOGLOBIN 12.3 g/dl (12.0-15.5); LYMPH # 2.4 10^3/uL (1.5-4.5); LYMPH % 33.1 % (24.0-44.0); MEAN CORPUSCULAR HEMOGLOBIN 27.8 pg (27.0-33.0); MEAN CORPUSCULAR HGB CONC 31.6 g/dl (32.0-36.5); MEAN CORPUSCULAR VOLUME 87.8 fl (80.0-96.0); MONO # 0.4 10^3/uL (0.0-0.8); MONO % 5.6 % (0.0-5.0); NEUTROPHILS # 4.1 10^3/uL (1.8-7.7); NEUTROPHILS % 57.9 % (36.0-66.0); PLATELET COUNT, AUTOMATED 167 10^3/uL (150-450); RED BLOOD COUNT 4.43 10^6/uL (4.00-5.40); WHITE BLOOD COUNT 7.2 10^3/uL (4.0-10.0)
[2018-09-28 19:26] LABS: ALBUMIN 3.6 GM/DL (3.2-5.2); ALT/SGPT 16 U/L (12-78); BILIRUBIN,DIRECT < 0.1 MG/DL (0.0-0.2); BILIRUBIN,TOTAL 0.2 MG/DL (0.2-1.0); BLOOD UREA NITROGEN 20 MG/DL (7-18); CARBON DIOXIDE LEVEL 29 MEQ/L (21-32); CHLORIDE LEVEL 112 MEQ/L (98-107); CREATININE FOR GFR 1.63 MG/DL (0.55-1.30); GLOMERULAR FILTRATION RATE 33.7 (>45); GLUCOSE, FASTING 103 MG/DL (70-100); LIPASE 113 U/L (73-393); POTASSIUM SERUM 3.4 MEQ/L (3.5-5.1); SODIUM LEVEL 145 MEQ/L (136-145); TOTAL PROTEIN 7.2 GM/DL (6.4-8.2)
--- NOTE | 2018-09-28 20:37 | REPVR ---
EXAM: CT Abdomen and Pelvis Without Contrast EXAM DATE/TIME: 09/28/2018 7:35 PM CLINICAL HISTORY: 63 years old, female; Signs and symptoms; Other: Diarrhea TECHNIQUE: Imaging protocol: Axial computed tomography images of the abdomen and pelvis without contrast. Coronal and sagittal reformatted images were created and reviewed. Radiation optimization: All CT scans at this facility use at least one of these dose optimization techniques: automated exposure control; mA and/or kV adjustment per patient size (includes targeted exams where dose is matched to clinical indication); or iterative reconstruction. COMPARISON: CT ABD PELVIS W/O FOL BY WIT 05/19/2017 1:32 PM FINDINGS: Lungs: Subsegmental atelectasis in the lateral basal segment of the right lower lobe. ABDOMEN: Liver: Normal. No mass. Gallbladder and bile ducts: Metallic device noted at the level of the inter atrial septum of the heart 4.8 cm gallstone in the gallbladder. Pancreas: Normal. No ductal dilation. Spleen: 1.4 cm accessory spleen below the splenic hilum. Adrenals: Normal. No mass. Kidneys and ureters: 1.5 cm hyperdense lesion arising from the upper pole of the right kidney (density measuring 43H. Density measurement was 35H on enhanced CT dated 05/19/2017) Stomach and bowel: Small amount of stool noted within the descending and transverse colon. No abnormally dilated bowel loops. No air-fluid levels to suggest the presence of diarrhea. No bowel wall thickening. Appendix: No evidence of appendicitis. PELVIS: Bladder: Unremarkable as visualized. Reproductive: Unremarkable as visualized. ABDOMEN and PELVIS: Intraperitoneal space: Surgical clips noted in the region of the splenic flexure. Surgical clips noted in the fat interposed between the splenic flexure and the pancreatic tail. The hernia sac measures 1.5 cm at its base. Bones/joints: Degenerative changes of both hip joints. No acute fracture. No dislocation. Soft tissues: Healed supraumbilical midline abdominal incision. Small incisional hernia containing fat. No evidence of strangulation. Healed infraumbilical midline abdominal incision. Vasculature: Normal. No abdominal aortic aneurysm. Lymph nodes: Normal. No enlarged lymph nodes. IMPRESSION: 1. No acute findings. 2. Complex cyst within the range of benign in the right kidney. 3. Gallstone. 4. Postsurgical changes noted within the splenic flexure 5. Subsegmental atelectasis in the right lower lobe. 6. Small incisional hernia above the umbilicus containing fat. No evidence of strangulation. Electronically signed by: Tamy Post On 09/28/2018 20:34:27 PM
--- NOTE | 2018-09-28 21:30 | REPVR ---
EXAM: US Abdomen Limited, Right Upper Quadrant EXAM DATE/TIME: 09/28/2018 8:57 PM CLINICAL HISTORY: 63 years old, female; Abdominal pain; Acute; Additional info: Diarrhea TECHNIQUE: Imaging protocol: Real-time ultrasound of the abdomen with image documentation. Examination was focused on the right upper quadrant. COMPARISON: Abdomen, limited US 10/26/2016 6:32 PM FINDINGS: Liver: The liver is generally increased in echotexture. There is sound attenuation with suboptimal resolution of liver parenchyma. Gallbladder: Gallstone noted in the neck the gallbladder measures approximately 2.8 cm. No gallbladder wall thickening. Common bile duct: Common bile duct measures 0.4 - 0.5 cm. Pancreas: Visualized pancreas is unremarkable. Right kidney: The right kidney measures approximately 11 x 5.4 x 5.2 cm. The lower pole is not well-seen due to bowel gas. No hydronephrosis. IMPRESSION: 1. Gallstone in the neck of the gallbladder. No gallbladder wall thickening. No ductal dilatation. 2. Hypodense liver suggests underlying infiltrative process such as fatty infiltration or other infiltrative process. Electronically signed by: Tamy Post On 09/28/2018 21:30:38 PM
[2018-09-29] LABS: CALCIUM LEVEL 7.4 MG/DL (8.8-10.2); CREATININE FOR GFR 1.29 MG/DL (0.55-1.30); GLOMERULAR FILTRATION RATE 44.2 (>45); POTASSIUM SERUM 3.3 MEQ/L (3.5-5.1)
[2018-09-29] MEDS ORDERED: CARVedilol 6.25 MG TAB PO ONE
[2018-09-29 00:36] VITALS: BP 169/94
[2018-09-29] MEDS ORDERED: MACR100C43 PO (00:45)
--- NOTE | 2018-09-30 13:33 | ED PDOC ---
Post-Departure Follow-Up [facility] and dr kwon faxed formal report of for Terence Tanner MD Sep 30, 2018 13:33
--- NOTE | 2018-09-30 13:34 | ED PDOC ---
Post-Departure Follow-Up [facility] lana kwon faxed formal report of ct abd/p for Terence Tanner MD Sep 30, 2018 13:34
== END 2018-09-29 00:50 | disposition home or self-care (01) ==
LOC: M ED 17:26
DX: N39.0 Urinary tract infection, site not specified (principal); E86.0 Dehydration; I10 Essential (primary) hypertension; J44.9 Chronic obstructive pulmonary disease, unspecified; F33.9 Major depressive disorder, recurrent, unspecified; F41.9 Anxiety disorder, unspecified; E78.5 Hyperlipidemia, unspecified; G47.33 Obstructive sleep apnea (adult) (pediatric); E03.9 Hypothyroidism, unspecified; K21.9 Gastro-esophageal reflux disease without esophagitis; Z79.899 Other long term (current) drug therapy; Z79.82 Long term (current) use of aspirin; Z79.02 Long term (current) use of antithrombotics/antiplatelets

== ENCOUNTER → 2018-12-03 | Outpatient (REF) | payer MEDICARE, OTHER ==
[~2018-12-03] MED LIST changes: +K-TA10TA2 PO; +MACR100C43 PO; +RANO500T7 PO; -RANO5TAB PO; -TOPI25CA PO; +TOPI25CA3 PO
[2018-12-03 14:15] LABS: BASO # 0.1 10^3/uL (0.0-0.2); BASO % 0.7 % (0.0-1.0); EOS # 0.2 10^3/uL (0.0-0.50); HEMATOCRIT 39.1 % (36.0-47.0); HEMOGLOBIN 12.4 g/dl (12.0-15.5); LYMPH # 2.1 10^3/uL (1.5-4.5); LYMPH % 30.8 % (24.0-44.0); MEAN CORPUSCULAR HEMOGLOBIN 27.8 pg (27.0-33.0); MEAN CORPUSCULAR HGB CONC 31.7 g/dl (32.0-36.5); MEAN CORPUSCULAR VOLUME 87.7 fl (80.0-96.0); MONO # 0.5 10^3/uL (0.0-0.8); MONO % 6.7 % (0.0-5.0); NEUTROPHILS # 3.9 10^3/uL (1.8-7.7); NEUTROPHILS % 58.5 % (36.0-66.0); PLATELET COUNT, AUTOMATED 164 10^3/uL (150-450); RED BLOOD COUNT 4.46 10^6/uL (4.00-5.40); WHITE BLOOD COUNT 6.7 10^3/uL (4.0-10.0)
[2018-12-03 14:25] LABS: INR 0.99; PROTHROMBIN TIME 12.8 SECONDS (11.8-14.0)
[2018-12-03 14:26] LABS: PARTIAL THROMBOPLASTIN TIME 28.6 SECONDS (25.0-38.4)
[2018-12-03 14:49] LABS: ALBUMIN 3.4 GM/DL (3.2-5.2); ALT/SGPT 16 U/L (12-78); BILIRUBIN,TOTAL 0.4 MG/DL (0.2-1.0); BLOOD UREA NITROGEN 20 MG/DL (7-18); CALCIUM LEVEL 8.8 MG/DL (8.8-10.2); CARBON DIOXIDE LEVEL 29 MEQ/L (21-32); CHLORIDE LEVEL 109 MEQ/L (98-107); CREATININE FOR GFR 1.35 MG/DL (0.55-1.30); GLOMERULAR FILTRATION RATE 41.9 (>45); GLUCOSE, FASTING 104 MG/DL (70-100); MAGNESIUM LEVEL 2.5 MG/DL (1.8-2.4); POTASSIUM SERUM 3.2 MEQ/L (3.5-5.1); SODIUM LEVEL 143 MEQ/L (136-145); TROPONIN I < 0.02 NG/ML (< 0.10)
== END ==
LOC: M SFHCPLAZ 13:01
PROVIDERS: ATTEND Family Medicine
DX: Z01.818 Encounter for other preprocedural examination (principal); I25.118 Atherosclerotic heart disease of native coronary artery with other forms of angina pectoris; I10 Essential (primary) hypertension
CPT/HCPCS: 36415; 80053; 83735; 84439; 84443; 84484; 85025; 85610; 85730; G0463

== ENCOUNTER → 2018-12-08 | Day surgery (SDC) | payer MEDICARE, OTHER ==
[~2018-12-08] VITALS: Ht 152.4 cm; Wt 84.7 kg
[~2018-12-08] MED LIST changes: +BUPIVACAINE/EPIN 0.25% 30 ML VIAL As Ordered ONE; +KETOROLAC 60 MG/2 ML VIAL (J1885) As Ordered ONE; +LIDOCAINE 1% MDV 20ML VIAL SQ PRN; +LIDOCAINE 2% INJ 100 MG/5 ML SDV (FOR ANES.) As Ordered ONE; +LR 1,000 ML IV ONE; +MIDAZOLAM INJ 2 MG/2 ML VIAL (J2250) As Ordered ONE; +ONDANSETRON 4MG/2ML VIAL (J2405) As Ordered ONE; +PROPOFOL 200 MG/20 ML VIAL As Ordered ONE; -RANO500T7 PO; +RANO5TAB PO; +ROCURONIUM BROMIDE 50 MG/5 ML VIAL As Ordered ONE; +TOPI25CA PO; -TOPI25CA3 PO; +dexameTHASONE 4 MG/ML 1ML VIAL (J1100) As Ordered ONE; +fentaNYL 250 MCG/5 ML INJECTION (J3010) As Ordered ONE
[2018-12-08 08:49] VITALS: BP 125/71
== END | disposition home or self-care (01) ==
LOC: M SDC 07:09
PROVIDERS: ATTEND Surgery
DX: K81.1 Chronic cholecystitis (principal); Z53.09 Procedure and treatment not carried out because of other contraindication; E87.6 Hypokalemia
CPT/HCPCS: 36415; 84132; J1100; J1885; J2250; J2405; J3010

== ENCOUNTER 2018-12-13 10:35 | Day surgery (SDC) | payer MEDICARE, OTHER ==
[~2018-12-13] VITALS: Ht 162.6 cm; Wt 84.5 kg
[~2018-12-13 10:35] MED LIST changes: -K-TA10TA2 PO; +LIDOCAINE 1% MDV 20ML VIAL SQ PRN; +LR 1,000 ML IV ONE
[2018-12-13] MEDS ORDERED: K-TA10TA2 PO (11:55)
[2018-12-13] MEDS ORDERED: SUGAMMADEX SODIUM 500 MG/5 ML VIAL (BRIDION) As Ordered ONE (13:32)
[2018-12-13] MEDS ORDERED: METOCLOPRAMIDE INJ 10MG/2ML VIAL (J2765) As Ordered ONE (13:32)
[2018-12-13] MEDS ORDERED: ROCURONIUM BROMIDE 50 MG/5 ML VIAL As Ordered ONE (13:32)
[2018-12-13] MEDS ORDERED: LIDOCAINE 2% INJ 100 MG/5 ML SDV (FOR ANES.) As Ordered ONE (13:32)
[2018-12-13] MEDS ORDERED: ONDANSETRON 4MG/2ML VIAL (J2405) As Ordered ONE (13:32)
[2018-12-13] MEDS ORDERED: dexameTHASONE 4 MG/ML 1ML VIAL (J1100) As Ordered ONE (13:32)
[2018-12-13] MEDS ORDERED: fentaNYL 250 MCG/5 ML INJECTION (J3010) As Ordered ONE (13:32)
[2018-12-13] MEDS ORDERED: MIDAZOLAM INJ 2 MG/2 ML VIAL (J2250) As Ordered ONE (13:32)
[2018-12-13] MEDS ORDERED: KETOROLAC 60 MG/2 ML VIAL (J1885) As Ordered ONE (13:32)
[2018-12-13] MEDS ORDERED: PROPOFOL 200 MG/20 ML VIAL As Ordered ONE (13:32)
[2018-12-13] MEDS ORDERED: ACETAMINOPHEN 1000MG 100ML IV BTL (OFIRMEV) (J0131 PER 10MG) As Ordered ONE (13:47)
[2018-12-13] MEDS ORDERED: DESFLURANE 240 ML INHALANT As Ordered ONE (14:19)
[2018-12-13] MEDS ORDERED: BUPIVACAINE/EPIN 0.25% 30 ML VIAL As Ordered ONE (14:35)
[2018-12-13] MEDS ORDERED: LABETALOL HCL 100 MG/20 ML VIAL As Ordered ONE (14:52)
[2018-12-13] MEDS: LABETALOL HCL 100 MG/20 ML VIAL IV SCH ×5 (14:54→15:20)
--- NOTE | 2018-12-13 14:59 | RO ---
DATE OF PROCEDURE: 12/13/2018 PREOPERATIVE DIAGNOSIS: Chronic cholecystitis. POSTOPERATIVE DIAGNOSIS: Chronic cholecystitis. PROCEDURE: Laparoscopic cholecystectomy. SURGEON: José Green DO ASSIST: None. ANESTHESIA: General. ESTIMATED BLOOD LOSS: 5 mL. COMPLICATIONS: None. INDICATIONS FOR PROCEDURE: Patient is a 63-year-old female who present with nonvisualization of the gallbladder on HIDA which shows chronic cholecystitis. Recommendation was to proceed with laparoscopic cholecystectomy. Risks and benefits of the procedure not limited to but including bleeding, infection, hernia formation, damage to surrounding structures, need for further surgery were discussed in detail with the patient, informed consent was obtained and procedure was planned. PROCEDURE: Patient was brought back to operating room 3. After sufficient sedation the abdomen sterilely prepped and draped. Next, a time out was done to confirm proper patient and proper procedure. Following that an 11 mm incision was made in the left upper quadrant, Veress needle inserted and the abdomen was insufflated to 15 mmHg. Next, 11 mm OptiView port was used to gain access to the abdomen. Once the abdomen was entered another 5 mm port was placed under direct visualization superior to the umbilicus, and then two more 5 mm ports in right upper quadrant. The fundus of gallbladder was elevated up towards the right shoulder gallbladder. The gallbladder had to have a hole punctured in it due to hydrops of the gallbladder and very large stones, making it very difficult to hold onto. Once this was completed, the cystic duct and cystic artery were carefully dissected free using a combination of blunt and sharp dissection. Once they are both clearly identified they are both doubly clipped and cut. The gallbladder was then removed from the gallbladder fossa with electrocautery brought out through the subxiphoid port site in a 10 mm Endo Catch bag. The abdomen was then examined to confirm hemostasis some bleeding of the liver edge was controlled with electrocautery. The abdomen was then desufflated. The fascial incision at the subxiphoid port site was closed with #0 Vicryl suture. The incisions were closed #4-0 Vicryl subcuticular sutures. The abdomen was cleaned and dried. Steri-Strips, 4x4 and tape were applied thus ending procedure.
[2018-12-13] MEDS ORDERED: METOCLOPRAMIDE INJ 10MG/2ML VIAL (J2765) IV PRN (15:00)
[2018-12-13] MEDS ORDERED: LR 1,000 ML IV SCH (15:00)
[2018-12-13] MEDS ORDERED: fentaNYL 100 MCG/2 ML INJECTION (J3010) IV PRN (15:00)
[2018-12-13] MEDS ORDERED: ONDANSETRON 4MG/2ML VIAL (J2405) IV PRN (15:00)
[2018-12-13] MEDS ORDERED: NORCO, ANEXSIA 5/325MG TABLET (HYDROcodone/ACETAMINOPHEN) PO PRN (15:15)
[2018-12-13] MEDS ORDERED: hydrALAZINE INJ 20 MG/ML VIAL As Ordered ONE (15:30)
[2018-12-13] MEDS: hydrALAZINE INJ 20 MG/ML VIAL IV SCH ×2 (15:34→15:40)
[2018-12-13 15:40] VITALS: BP 176/91
[2018-12-13] MEDS ORDERED: oxyCODONE 5MG TAB PO PRN (16:30)
[2018-12-13 17:15] VITALS: BP 155/83
== END 2018-12-13 17:40 | disposition home or self-care (01) ==
LOC: M SDC 10:35
PROVIDERS: ATTEND Surgery
DX: K80.20 Calculus of gallbladder without cholecystitis without obstruction (principal); E87.6 Hypokalemia; I10 Essential (primary) hypertension; E78.5 Hyperlipidemia, unspecified; I25.10 Atherosclerotic heart disease of native coronary artery without angina pectoris; I50.9 Heart failure, unspecified; E11.9 Type 2 diabetes mellitus without complications; Z86.73 Personal history of transient ischemic attack (TIA), and cerebral infarction without residual deficits; Z98.61 Coronary angioplasty status; E03.9 Hypothyroidism, unspecified; F41.9 Anxiety disorder, unspecified; F32.9 Major depressive disorder, single episode, unspecified; R53.82 Chronic fatigue, unspecified; Z79.82 Long term (current) use of aspirin; Z79.899 Other long term (current) drug therapy; Z92.21 Personal history of antineoplastic chemotherapy; Z85.038 Personal history of other malignant neoplasm of large intestine; K21.9 Gastro-esophageal reflux disease without esophagitis
CPT/HCPCS: 36415; 47562; 80048; 88304; J0131; J1100; J1885; J2250; J2405; J2765; J3010

== ENCOUNTER → 2018-12-13 | Outpatient (CLI) | payer MEDICARE, OTHER ==
[~2018-12-13] MED LIST changes: -BUPIVACAINE/EPIN 0.25% 30 ML VIAL As Ordered ONE; -KETOROLAC 60 MG/2 ML VIAL (J1885) As Ordered ONE; -LIDOCAINE 1% MDV 20ML VIAL SQ PRN; -LIDOCAINE 2% INJ 100 MG/5 ML SDV (FOR ANES.) As Ordered ONE; -LR 1,000 ML IV ONE; -MIDAZOLAM INJ 2 MG/2 ML VIAL (J2250) As Ordered ONE; -ONDANSETRON 4MG/2ML VIAL (J2405) As Ordered ONE; -PROPOFOL 200 MG/20 ML VIAL As Ordered ONE; -ROCURONIUM BROMIDE 50 MG/5 ML VIAL As Ordered ONE; -dexameTHASONE 4 MG/ML 1ML VIAL (J1100) As Ordered ONE; -fentaNYL 250 MCG/5 ML INJECTION (J3010) As Ordered ONE
[2018-12-13 11:17] LABS: CALCIUM LEVEL 8.5 MG/DL (8.8-10.2); CREATININE FOR GFR 1.17 MG/DL (0.55-1.30); GLOMERULAR FILTRATION RATE 49.4 (>45); POTASSIUM SERUM 4.5 MEQ/L (3.5-5.1)
== END ==
LOC: M LAB 10:07
PROVIDERS: ATTEND Surgery
DX: E87.6 Hypokalemia (principal)

== ENCOUNTER 2019-07-27 07:11 | Day surgery (SDC) | payer MEDICARE, OTHER ==
[~2019-07-27] VITALS: Ht 162.6 cm; Wt 84.8 kg
[~2019-07-27 07:11] MED LIST changes: -FLUO20CA19 PO; +FLUO20CA20 PO; +FLUO20CA22 PO; -FLUO20CA8 PO; +K-TA10TA2 PO; -LIDOCAINE 1% MDV 20ML VIAL SQ PRN; -LR 1,000 ML IV ONE; +NS 1,000 ML IV ONE; +RANO500T7 PO; -RANO5TAB PO; -TOPI25CA PO; +TOPI25CA3 PO; +ZONI25CA13 PO; -ZONI25CA2 PO
[2019-07-27] MEDS ORDERED: propofoL 200 MG/20 ML VIAL As Ordered ONE ×2 (08:17→08:35)
[2019-07-27] MEDS ORDERED: LABETALOL HCL 100 MG/20 ML VIAL As Ordered ONE (08:35)
[2019-07-27 09:05] VITALS: BP 153/90
--- NOTE | 2019-07-27 15:34 | ROOR ---
Patient Name: Yasmin Calderón Procedure Date: 07/27/2019 8:16 AM Date of : 1955 Age: 64 Room: [facility] Gender: Female Note Status: Finalized Procedure: Colonoscopy Indications: High risk colon cancer surveillance: Personal history of colon cancer Providers: DO Josephine Carr MD: SCOTT Medina PA-C Requesting Provider: Medicines: Propofol per Anesthesia Complications: No immediate complications. Procedure: Pre-Anesthesia Assessment: - Prior to the procedure, a History and Physical was performed, and patient medications and allergies were reviewed. The patient is competent. The risks and benefits of the procedure and the sedation options and risks were discussed with the patient. All questions were answered and informed consent was obtained. Patient identification and proposed procedure were verified by the physician, the nurse, the anesthesiologist and the biology specimen technician in the endoscopy suite. Mental Status Examination: alert and oriented. Airway Examination: normal oropharyngeal airway and neck mobility. Respiratory Examination: clear to auscultation. CV Examination: normal. Prophylactic Antibiotics: The patient does not require prophylactic antibiotics. Prior Anticoagulants: The patient has taken no previous anticoagulant or antiplatelet agents. ASA Grade Assessment: III - A patient with severe systemic disease. After reviewing the risks and benefits, the patient was deemed in satisfactory condition to undergo the procedure. The anesthesia plan was to use monitored anesthesia care (MAC). Immediately prior to administration of medications, the patient was re-assessed for adequacy to receive sedatives. The heart rate, respiratory rate, oxygen saturations, blood pressure, adequacy of pulmonary ventilation, and response to care were monitored throughout the procedure. The physical status of the patient was re-assessed after the procedure. The Colonoscope was introduced through the anus and advanced to the cecum, identified by appendiceal orifice and ileocecal valve. The colonoscopy was performed without difficulty. The patient tolerated the procedure well. Findings: Two small-mouthed diverticula were found in the cecum. Non-bleeding internal hemorrhoids were found during endoscopy. The hemorrhoids were Grade II (internal hemorrhoids that prolapse but reduce spontaneously). The exam was otherwise without abnormality on direct and retroflexion views. Impression: - Diverticulosis in the cecum. - Non-bleeding internal hemorrhoids. - The examination was otherwise normal on direct and retroflexion views. - No specimens collected. Recommendation: - Patient has a contact number available for emergencies. The signs and symptoms of potential delayed complications were discussed with the patient. Return to normal activities tomorrow. Written discharge instructions were provided to the patient. - Repeat colonoscopy in 3 years for surveillance. - Return to my office PRN. José Green DO 07/27/2019 8:40:09 AM Electronically signed by José Green DO Number of Addenda: 0 Note Initiated On: 07/27/2019 8:16 AM Estimated Blood Loss: Estimated blood loss: none.
== END 2019-07-27 09:07 | disposition home or self-care (01) ==
LOC: M OPP 07:11
PROVIDERS: ATTEND Surgery
DX: Z85.038 Personal history of other malignant neoplasm of large intestine (principal); K64.1 Second degree hemorrhoids; K57.30 Diverticulosis of large intestine without perforation or abscess without bleeding; Z08 Encounter for follow-up examination after completed treatment for malignant neoplasm

== ENCOUNTER → 2019-08-12 | Outpatient (CLI) | payer MEDICARE, OTHER ==
[~2019-08-12] MED LIST changes: -NS 1,000 ML IV ONE
--- NOTE | 2019-08-12 17:28 | REPVR ---
PROCEDURE INFORMATION: Exam: MR Cervical Spine Without Contrast Exam date and time: 08/12/2019 4:47 PM Age: 64 years old Clinical indication: Condition or disease; Other: Syringx TECHNIQUE: Imaging protocol: Multiplanar magnetic resonance images of the cervical spine without contrast. COMPARISON: MRI-Spine,Cervical without con 11/12/2017 11:07 AM FINDINGS: Vertebrae: There is no fracture. Vertebral alignment is normal. Stir images demonstrate no evidence of marrow edema or marrow infiltrating lesion. Spinal cord: There is a syrinx within the spinal cord centered at the T1-T2 level. This measures 15 mm in length. Maximal diameter on axial images is 3.5 mm unchanged from prior scan. Immediately superior to this there is a punctate focus of syringomyelia. There is also a small syrinx at the C5-C6 level measuring 2 mm in diameter. These findings are stable compared with prior scan. No abnormal signal in the adjacent spinal cord. C2-C3: No disc bulge. Facet hypertrophy with mild right foraminal stenosis. No central stenosis or left foraminal stenosis. No change from prior scan. C3-C4: 2 mm broad-based central disc protrusion slightly indents the thecal sac. This has progressed compared with prior scan. There is facet and uncovertebral hypertrophy. There is mild right foraminal stenosis. No central stenosis or left foraminal stenosis. C4-C5: No central stenosis, foraminal stenosis or disc bulge. Mild facet hypertrophy. No change from prior scan. C5-C6: Spondylosis with ventral osteophyte and disc bulge. There is minimal posterior bony ridging and disc bulge. No central stenosis. Facet hypertrophy with mild left foraminal stenosis. No change from prior scan. C6-C7: Mild spondylosis with posterior small osteophyte and disc bulge slightly asymmetric to the left mildly indenting the thecal sac. There is facet hypertrophy with mild left foraminal stenosis. No right foraminal stenosis. No central stenosis. No change from prior scan. C7-T1: Minimal disc bulge. Facet hypertrophy with mild right foraminal stenosis. No central stenosis. No left foraminal stenosis. No change from prior scan. T3-T4: Mild disc bulge seen on sagittal images. Vertebral arteries: Expected flow voids in the vertebral arteries. Soft tissues: There is no paraspinous or intraspinal mass, hemorrhage or fluid collection. Other findings: There is dehydration throughout the cervical discs. No disc edema. IMPRESSION: 1. Spinal cord syrinx stable in comparison with prior scan. No evidence to indicate underlying lesion. 2. Disc disease and degenerative findings are detailed above. 3. No acute findings. Electronically signed by: Chinedu Soliz On 08/12/2019 17:27:42 PM
== END ==
LOC: M RAD 15:31
PROVIDERS: ATTEND Neurological Surgery
DX: G95.0 Syringomyelia and syringobulbia (principal)

== ENCOUNTER 2019-10-28 12:04 | Emergency (ER) | payer MEDICARE, OTHER ==
[~2019-10-28] VITALS: Ht 160 cm; Wt 90.7 kg
[2019-10-28 13:06] LABS: BASO % 0.6 % (0.0-1.0); EOS # 0.2 10^3/uL (0.0-0.5); HEMATOCRIT 37.9 % (36.0-47.0); HEMOGLOBIN 11.9 g/dl (12.0-15.5); LYMPH # 1.8 10^3/uL (1.5-5.0); LYMPH % 25.7 % (24.0-44.0); MEAN CORPUSCULAR HEMOGLOBIN 28.1 pg (27.0-33.0); MEAN CORPUSCULAR HGB CONC 31.4 g/dl (32.0-36.5); MEAN CORPUSCULAR VOLUME 89.6 fl (80.0-96.0); MONO # 0.4 10^3/uL (0.0-0.8); MONO % 5.7 % (0.0-5.0); NEUTROPHILS # 4.6 10^3/uL (1.5-8.5); NEUTROPHILS % 64.6 % (36.0-66.0); PLATELET COUNT, AUTOMATED 148 10^3/uL (150-450); RED BLOOD COUNT 4.23 10^6/uL (4.00-5.40)
[2019-10-28 13:24] LABS: INR 1.01
[2019-10-28 13:33] LABS: ALBUMIN 3.2 GM/DL (3.2-5.2); ALT/SGPT 20 U/L (12-78); BILIRUBIN,DIRECT 0.1 MG/DL (0.0-0.2); BILIRUBIN,TOTAL 0.3 MG/DL (0.2-1.0); BLOOD UREA NITROGEN 17 MG/DL (7-18); CARBON DIOXIDE LEVEL 27 MEQ/L (21-32); CHLORIDE LEVEL 112 MEQ/L (98-107); CK-MB VALUE MASS 1.4 NG/ML (<3.6); CPK CREATINE PHOSPHOKINASE 78 U/L (26-192); CREATININE FOR GFR 1.15 MG/DL (0.55-1.30); GLOMERULAR FILTRATION RATE 50.3 (>45); GLUCOSE, FASTING 118 MG/DL (70-100); MB/CK RELATIVE INDEX 1.79 (< OR =4); NT-PRO BNP 250 PG/ML (<125); SODIUM LEVEL 144 MEQ/L (136-145); TOTAL PROTEIN 6.7 GM/DL (6.4-8.2); TROPONIN I < 0.02 NG/ML (< 0.10)
--- NOTE | 2019-10-28 13:45 | REP ---
Duplex extremity venous ultrasound: Bilateral lower extremity. History: Rule out DVT. Findings: The deep veins are anechoic and fully compressible from the groin to the popliteal fossa in the left and right lower extremity. Color flow imaging is homogeneous. Spectral Doppler interrogation demonstrates intact respiratory variation in flow and normal manual augmentation of flow. There is no evidence of deep vein thrombosis. Impression: Negative bilateral lower extremity duplex venous ultrasound. No evidence of deep vein thrombosis. Electronically Signed by Javier Rios MD 10/28/2019 01:36 P
[2019-10-28 14:04] VITALS: BP 113/69
--- NOTE | 2019-10-28 15:44 | ECGEPIP ---
[facility] - ED Test Date: 2019-10-28 Pat Name: KISHOR JOLLEY Department: Room: - Gender: Female Court Messenger: osman ARREGUINB: 1955 Requested By: SHAJI SIMMNOS Order Number: [id number] Reading MD: Terence Haynes Measurements Intervals [place] Rate: 64 P: 52 VT: 134 QRS: 85 QRSD: 89 T: 59 QT: 442 QTc: 458 Interpretive Statements SINUS RHYTHM NONSPECIFIC ST T WAVE CHANGES DELAYED R WAVE PROGRESSION BORDERLINE PROLONGED QTC CW 04/22/[address]' NONSPECIFIC ST T WAVE CHANGES Electronically Signed on 10-28-2019 15:44:43 EDT by Terence Haynes
== END 2019-10-28 14:16 | disposition home or self-care (01) ==
LOC: M ED 12:04
DX: R60.0 Localized edema (principal); I10 Essential (primary) hypertension; E07.9 Disorder of thyroid, unspecified; E78.5 Hyperlipidemia, unspecified; Z79.899 Other long term (current) drug therapy; Z79.890 Hormone replacement therapy; Z79.82 Long term (current) use of aspirin; Z79.01 Long term (current) use of anticoagulants

== ENCOUNTER → 2020-01-17 | Outpatient (CLI) | payer MEDICARE, SELFPAY | LOC: M LABSMTC 13:00 | PROVIDERS: ATTEND Pediatrics | DX: Z11.59 Encounter for screening for other viral diseases (principal) ==

== ENCOUNTER 2020-02-03 18:53 | Emergency (ER) | payer MEDICARE, OTHER ==
[~2020-02-03] VITALS: Ht 162.6 cm; Wt 93.6 kg
[2020-02-03 20:40] LABS: BASO # 0.1 10^3/uL (0.0-0.2); BASO % 0.7 % (0.0-1.0); EOS # 0.3 10^3/uL (0.0-0.5); EOS % 3.4 % (0.0-3.0); HEMATOCRIT 36.8 % (36.0-47.0); HEMOGLOBIN 11.7 g/dl (12.0-15.5); LYMPH # 2.3 10^3/uL (1.5-5.0); LYMPH % 24.9 % (24.0-44.0); MEAN CORPUSCULAR HEMOGLOBIN 29.6 pg (27.0-33.0); MEAN CORPUSCULAR HGB CONC 31.8 g/dl (32.0-36.5); MEAN CORPUSCULAR VOLUME 93.2 fl (80.0-96.0); MONO # 0.7 10^3/uL (0.0-0.8); MONO % 7.5 % (0.0-5.0); NEUTROPHILS # 5.8 10^3/uL (1.5-8.5); NEUTROPHILS % 62.6 % (36.0-66.0); PLATELET COUNT, AUTOMATED 173 10^3/uL (150-450); RED BLOOD COUNT 3.95 10^6/uL (4.00-5.40); WHITE BLOOD COUNT 9.2 10^3/uL (4.0-10.0)
[2020-02-03 20:53] LABS: PROTHROMBIN TIME 13.4 SECONDS (11.8-14.0)
[2020-02-03 20:54] LABS: PARTIAL THROMBOPLASTIN TIME 26.4 SECONDS (25.0-38.4)
[2020-02-03 21:02] LABS: ALT/SGPT 24 U/L (12-78)
[2020-02-03 21:03] LABS: ALBUMIN 3.4 GM/DL (3.2-5.2); BILIRUBIN,DIRECT < 0.1 MG/DL (0.0-0.2); BILIRUBIN,TOTAL 0.3 MG/DL (0.2-1.0); TOTAL PROTEIN 7.4 GM/DL (6.4-8.2)
[2020-02-03 21:04] LABS: C REACTIVE PROTEIN QUANTITATIV 1.75 MG/DL (0.00-0.30); CALCIUM LEVEL 8.8 MG/DL (8.8-10.2); CREATININE FOR GFR 1.58 MG/DL (0.55-1.30); GLOMERULAR FILTRATION RATE 34.8 (>45); POTASSIUM SERUM 3.7 MEQ/L (3.5-5.1)
[2020-02-03 21:36] LABS: ERYTHROCYTE SEDIMENTATION RATE 37 mm/hr (0-30)
--- NOTE | 2020-02-03 21:45 | REPVR ---
PROCEDURE INFORMATION: Exam: XR Chest, 2 Views Exam date and time: 02/03/20 (9:11pm) Age: 64 years old Clinical indication: Pitting edema TECHNIQUE: Imaging protocol: XR of the chest Views: 2 views COMPARISON: Portable CXR of 04/20/18 FINDINGS: Lungs: Unremarkable. No consolidation. Pleural space: Unremarkable. No pleural effusions. No pneumothorax. Heart/Mediastinum: Heart size top normal (unchanged). Bones/joints: Unremarkable. Other findings: Implantable loop recorder in the chest soft tissues, overlying the heart shadow on the frontal CXR. Previous cholecystectomy. IMPRESSION: No acute findings. The lung rasmussen remain clear. Electronically signed by: Beckie Morgan On 02/03/2020 21:44:59 PM
[2020-02-03] MEDS ORDERED: FUROSEMIDE 40MG/4ML VIAL (J1940) IM ONE (22:00)
[2020-02-03 22:42] VITALS: BP 130/76
== END 2020-02-03 22:42 | disposition home or self-care (01) ==
LOC: M ED 18:53
DX: R60.0 Localized edema (principal); I10 Essential (primary) hypertension; Z79.82 Long term (current) use of aspirin; Z79.899 Other long term (current) drug therapy
CPT/HCPCS: 71046; 80048; 80076; 83880; 85025; 85610; 85652; 85730; 86140; 96372; 99283; J1940

== ENCOUNTER → 2020-04-17 | Outpatient (CLI) | payer MEDICARE, OTHER ==
--- NOTE | 2020-04-17 17:47 | REP ---
INDICATION: SHOULDER PAIN. COMPARISON: 11/24/2016 TECHNIQUE: Three views FINDINGS: AC joint shows no widening or elevation of the clavicle in relationship to the acromion no significant spurring from the joint glenohumeral joint shows minimal degenerative changes without subluxation or dislocation and no abnormal soft tissue calcification. Scapula and humerus and ribs show no fracture. IMPRESSION: 1. Minor degenerative changes AC and glenohumeral joint without fracture, subluxation, abnormal soft tissue calcification or focal bone lesion. <Electronically signed by Monico Huston > 04/17/20 [id number]
== END ==
LOC: M ADAMS 09:38
PROVIDERS: ATTEND Physician Assistant
DX: M25.512 Pain in left shoulder (principal)

== ENCOUNTER 2020-05-01 18:36 | Emergency (ER) | payer MEDICARE, OTHER ==
[~2020-05-01] VITALS: Ht 162.6 cm; Wt 68.2 kg
[2020-05-01 18:37] VITALS: BP 178/85
[2020-05-01] MEDS ORDERED: PRED20TA PO (19:24)
[2020-05-01] MEDS ORDERED: predniSONE 20 MG TAB PO ONE (19:30)
== END 2020-05-01 19:33 | disposition home or self-care (01) ==
LOC: M ED 18:36
DX: R21 Rash and other nonspecific skin eruption (principal); T50.B95A Adverse effect of other viral vaccines, initial encounter; J02.9 Acute pharyngitis, unspecified; I25.2 Old myocardial infarction; I10 Essential (primary) hypertension; E78.5 Hyperlipidemia, unspecified; G47.33 Obstructive sleep apnea (adult) (pediatric); J44.9 Chronic obstructive pulmonary disease, unspecified; K21.9 Gastro-esophageal reflux disease without esophagitis; E03.9 Hypothyroidism, unspecified; F33.9 Major depressive disorder, recurrent, unspecified; F41.9 Anxiety disorder, unspecified; Z79.82 Long term (current) use of aspirin; Z79.899 Other long term (current) drug therapy

== ENCOUNTER 2020-05-15 14:42 | Emergency (ER) | payer MEDICARE, OTHER ==
[~2020-05-15] VITALS: Ht 162.6 cm; Wt 89.8 kg
[~2020-05-15 14:42] MED LIST changes: +PRED20TA PO
--- NOTE | 2020-05-15 15:19 | REP ---
INDICATION: fall injury. COMPARISON: None. TECHNIQUE: Helical scanning is acquired. 5 mm axial images were reformatted. Coronal MPR images were generated. FINDINGS: There is evidence of an old blowout fracture of the floor of the right orbit without extraocular muscle displacement. The visualized paranasal sinuses are clear. There is an old appearing fracture of the right superior orbital margin. No skull fracture is seen. Some vascular calcification is noted in the distal internal carotid artery. On soft tissue window setting, there is minimal generalized volume loss. There are periventricular low-density areas in the white matter bilaterally consistent with small vessel atherosclerotic change. There is no evidence of intracranial hemorrhage. No evidence of infarct, extra-axial fluid collection, or midline shift. No mass lesion is seen. IMPRESSION: No acute intracranial abnormality. Small-vessel atherosclerotic changes and mild generalized volume loss. Old right orbital trauma.. <Electronically signed by Johny Rios > 05/15/20 [id number]
--- NOTE | 2020-05-15 15:27 | REP ---
INDICATION: fall injury. COMPARISON: Comparison study August 07, 2012. TECHNIQUE: Helical scanning is acquired and 2 mm axial images re-formatted. Coronal MPR images are generated and reviewed. FINDINGS: There is an old depressed blowout fracture of the floor of the right orbit with herniation of orbital fat but without displacement of the inferior rectus muscle. This is unchanged from the 2013 prior study. There is some medial displacement of the lamina papyracea in the right orbit as well also old and also unchanged. There is a old healed slightly depressed fracture of the superior orbital margin and anterior margin of the right frontal sinus. The right frontal sinus is air fully aerated. There are metallic sutures in the superolateral orbital margin on the right and there is evidence of an old right lateral orbital wall fracture nondisplaced. No acute maxillary or mandibular fracture is seen. No acute nasal bone fracture is seen. Bony nasal septum is in the midline. Nasal turbinates soft tissues are unremarkable. Ethmoid, maxillary, sphenoid and frontal sinuses are clear. Mastoid aeration is normal and symmetric. There is some vascular calcification in the carotid siphons bilaterally. No intraorbital soft tissue mass or hematoma is seen.. IMPRESSION: Old posttraumatic changes of the right orbital klein and the anterior wall of the right frontal sinus all unchanged from the 2013 prior study. No acute facial trauma seen. <Electronically signed by Johny Rios > 05/15/20 1527
--- NOTE | 2020-05-15 15:31 | REP ---
INDICATION: fall injury. COMPARISON: Comparison CT study is from July 11, 2015.. TECHNIQUE: Helical scanning is acquired and overlapping 2 mm high resolution axial images were generated and reviewed at bone and soft tissue window settings. Coronal and sagittal multiplanar re-formations images are generated. FINDINGS: There is no evidence of cervical spine element fracture. No skull base fracture is seen. Cervical vertebral body heights are preserved. Alignment is normal. Facet joints are normally aligned bilaterally at each cervical level on multiplanar re-formations images. There is no evidence of intraspinal or paraspinal hematoma. No extra vertebral abnormality is seen. There is straightening of the normal cervical lordosis. There is degenerative change at the C1-2 articulation and degenerative disc disease is noted at C4-5 C5-6 and C6-7 unchanged from the comparison study 2015. No evidence of neural foraminal narrowing is seen. No intraspinal or paraspinal hematoma is appreciated. Vascular calcification is noted in the carotid arteries bilaterally. IMPRESSION: Degenerative spondylosis changes and straightening. Findings unchanged from July 11, 2015. No fracture or other acute abnormality noted.. <Electronically signed by Johny Rios > 05/15/20 1522
[2020-05-15] MEDS ORDERED: ONDA4TAB6 PO (16:17)
--- NOTE | 2020-05-15 16:34 | REP ---
INDICATION: fall. COMPARISON: Comparison study April 17, 2020.. TECHNIQUE: Three views. FINDINGS: There is mild hypertrophy at the AC joint unchanged. Glenohumeral and acromioclavicular joints are normally aligned. There is some diffuse osteopenia. No fracture or subluxation is seen. IMPRESSION: Mild AC joint osteoarthritis. Diffuse osteopenia. No evidence of fracture or subluxation. <Electronically signed by Johny Rios > 05/15/20 [id number]
[2020-05-15 16:42] VITALS: BP 152/82
== END 2020-05-15 16:50 | disposition home or self-care (01) ==
LOC: M ED 14:42
DX: S06.0X0A Concussion without loss of consciousness, initial encounter (principal); M25.512 Pain in left shoulder; S00.31XA Abrasion of nose, initial encounter; W01.10XA Fall on same level from slipping, tripping and stumbling with subsequent striking against unspecified object, initial encounter; Y92.014 Private driveway to single-family (private) house as the place of occurrence of the external cause; Y93.9 Activity, unspecified; Y99.9 Unspecified external cause status; M47.812 Spondylosis without myelopathy or radiculopathy, cervical region; M19.012 Primary osteoarthritis, left shoulder; M85.812 Other specified disorders of bone density and structure, left shoulder; Z86.73 Personal history of transient ischemic attack (TIA), and cerebral infarction without residual deficits; I25.2 Old myocardial infarction; I10 Essential (primary) hypertension; G47.33 Obstructive sleep apnea (adult) (pediatric); J44.9 Chronic obstructive pulmonary disease, unspecified; Z79.01 Long term (current) use of anticoagulants; Z79.82 Long term (current) use of aspirin; Z79.899 Other long term (current) drug therapy

== ENCOUNTER → 2020-10-17 | Outpatient (CLI) | payer OTHER ==
[~2020-10-17] MED LIST changes: +FLON1SPR NARES; -LISI-538 PO; -LISI-542 PO; +LISI-898 PO; +LISI20TA33 PO; +MAGICMW SSP; +ONDA4TAB6 PO; +TESS100C PO
== END ==
LOC: M LABSMTC 10:47
PROVIDERS: ATTEND Family Medicine
DX: Z20.822 Contact with and (suspected) exposure to COVID-19 (principal)
CPT/HCPCS: C9803; U0003

== ENCOUNTER 2020-10-18 17:49 | Emergency (ER) | payer OTHER ==
[~2020-10-18] VITALS: Ht 160 cm; Wt 90.0 kg
[~2020-10-18 17:49] MED LIST changes: -FLON1SPR NARES; -MAGICMW SSP; -TESS100C PO
[2020-10-18] MEDS ORDERED: MAGIC MOUTHWASH SUSPENSION BTL SS STA (19:58)
[2020-10-18] MEDS ORDERED: FLUTICASONE PROP 0.05% NASAL SPRAY 16 GM (FLONASE) NARES STA (19:58)
[2020-10-18] MEDS ORDERED: ACETAMINOPHEN 500 MG TAB PO ONE (20:00)
[2020-10-18] MEDS ORDERED: BENZONATATE 100 MG CAP PO ONE (20:00)
--- NOTE | 2020-10-18 20:20 | REPVR ---
PROCEDURE INFORMATION: Exam: XR Chest Exam date and time: 10/18/2020 7:58 PM Age: 65 years old Clinical indication: Other: Cough TECHNIQUE: Imaging protocol: XR of the chest. Views: 2 views. COMPARISON: CR Chest, 2 view PA, Lat 02/03/2020 9:10 PM FINDINGS: Tubes, catheters and devices: Loop recorder demonstrated in the precordium. Lungs: Unremarkable. No consolidation. Pleural spaces: Unremarkable. No pleural effusion. No pneumothorax. Heart/Mediastinum: Unremarkable. No cardiomegaly. Bones/joints: Unremarkable. IMPRESSION: No acute findings. Electronically signed by: Xander Leo On 10/18/2020 20:20:35 PM
[2020-10-18] MEDS ORDERED: TESS100C PO (20:33)
[2020-10-18] MEDS ORDERED: MAGICMW SSP (20:33)
[2020-10-18] MEDS ORDERED: FLON1SPR NARES (20:33)
[2020-10-18 21:03] VITALS: BP 112/60
== END 2020-10-18 21:04 | disposition home or self-care (01) ==
LOC: M ED 17:49
DX: R05 Cough (principal); R51.9 Headache, unspecified; R09.81 Nasal congestion; I10 Essential (primary) hypertension; I25.2 Old myocardial infarction

== ENCOUNTER 2020-11-28 13:19 | Inpatient (IN) | payer OTHER ==
[~2020-11-28] VITALS: Ht 165.1 cm; Wt 88.7 kg
[~2020-11-28 13:19] MED LIST changes: +FLON1SPR NARES; +MAGICMW SSP; +TESS100C PO
--- NOTE | 2020-11-28 13:52 | REP ---
INDICATION: neuro. COMPARISON: Comparison head CT study May 15, 2020.. TECHNIQUE: Helical scanning is acquired. 5 mm axial images were reformatted. Coronal MPR images were generated. 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 Bone window settings demonstrate an old the right superior and lateral orbital fracture with postoperative sutures unchanged from the prior CT study. Frontal sinuses are clear. The remainder of the visualized paranasal sinuses are clear as well. There is mild generalized volume loss intracranially. Small vessel changes are noted in the periventricular white matter of the frontal lobes unchanged. There is no evidence of intracranial hemorrhage. No infarct, extra-axial fluid collection, mass, or midline shift is seen. IMPRESSION: Mild generalized volume loss and small vessel changes. No acute intracranial abnormality. Old post traumatic changes right orbital margin.. <Electronically signed by Johny Rios > 11/28/20 [id number]
[2020-11-28 14:08] LABS: BASO # 0.1 10^3/uL (0.0-0.2); BASO % 0.7 % (0.0-1.0); EOS # 0.2 10^3/uL (0.0-0.5); EOS % 1.8 % (0.0-3.0); HEMATOCRIT 41.1 % (36.0-47.0); HEMOGLOBIN 12.8 g/dl (12.0-15.5); LYMPH # 2.1 10^3/uL (1.5-5.0); LYMPH % 22.7 % (24.0-44.0); MEAN CORPUSCULAR HEMOGLOBIN 28.3 pg (27.0-33.0); MEAN CORPUSCULAR HGB CONC 31.1 g/dl (32.0-36.5); MEAN CORPUSCULAR VOLUME 90.7 fl (80.0-96.0); MONO # 0.7 10^3/uL (0.0-0.8); MONO % 6.9 % (2.0-8.0); NEUTROPHILS # 6.3 10^3/uL (1.5-8.5); NEUTROPHILS % 66.6 % (36.0-66.0); PLATELET COUNT, AUTOMATED 190 10^3/uL (150-450); RED BLOOD COUNT 4.53 10^6/uL (4.00-5.40); WHITE BLOOD COUNT 9.4 10^3/uL (4.0-10.0)
[2020-11-28 14:18] LABS: INR 0.89; PROTHROMBIN TIME 12.2 SECONDS (12.5-14.3)
[2020-11-28 14:38] LABS: CK-MB VALUE MASS 2.1 NG/ML (<3.6); CPK CREATINE PHOSPHOKINASE 84 U/L (26-192); TROPONIN I < 0.02 NG/ML (< 0.10)
--- NOTE | 2020-11-28 16:19 | REP ---
INDICATION: CVA. COMPARISON: Comparison chest x-ray October 18, 2020. TECHNIQUE: Portable upright AP chest radiograph. FINDINGS: The lungs are well inflated and free of infiltrate. Pleural angles are sharp. Heart size is normal. Pulmonary vasculature is not increased. There is a minimal linear density in the left base laterally consistent with fibrosis or platelike atelectasis. It is unchanged from the October 18, 2020 study. IMPRESSION: Platelike atelectasis versus linear scarring left base. Otherwise no active disease.. <Electronically signed by Johny Rios > 11/28/20 [id number]
[2020-11-28] MEDS ORDERED: hydrOXYzine 25 MG TAB PO ONE (17:55)
[2020-11-28] MEDS ORDERED: hydrOXYzine 25 MG TAB PO PRN (17:55)
[2020-11-28] MEDS ORDERED: ATOR40TA75 PO (18:22)
[2020-11-28] MEDS ORDERED: CARV12.5 PO (18:22)
[2020-11-28] MEDS ORDERED: TOPI100T9 PO (18:22)
[2020-11-28] MEDS ORDERED: LEVO88TA24 PO (18:22)
[2020-11-28] MEDS ORDERED: FLUO40CA PO (18:22)
[2020-11-28] MEDS ORDERED: PATIENT COMMENT (18:23)
[2020-11-28 18:34] LABS: RSV AMPLIFICATION NEGATIVE (NEGATIVE)
[2020-11-28] MEDS ORDERED: ceFAZolin SOD 500 MG in D5W MINI-BAG PLUS 50 ML IV SCH (19:00)
[2020-11-28 22:23] VITALS: BP 164/95
--- NOTE | 2020-11-28 22:36 | REPVR ---
PROCEDURE INFORMATION: Exam: MRA Neck Without Contrast Exam date and time: 11/28/2020 5:07 PM Age: 65 years old Clinical indication: Weakness; Additional info: Right facial weakness TECHNIQUE: Imaging protocol: Magnetic resonance angiography of the neck without contrast. COMPARISON: 1. CT Spine,cervical w/o contrast 05/15/2020 2:53 PM 2. MRI-Spine,Cervical without con 08/12/2019 4:29 PM FINDINGS: Right common carotid artery: No stenosis. No dissection or occlusion. Right internal carotid artery: No stenosis of the extracranial segment. No dissection or occlusion. Right external carotid artery: No stenosis. No dissection or occlusion of the origin. Right vertebral artery: No stenosis. No dissection or occlusion. Left common carotid artery: No stenosis. No dissection or occlusion. Left internal carotid artery: No stenosis of the extracranial segment. No dissection or occlusion. Left external carotid artery: No stenosis. No dissection or occlusion of the origin. Left vertebral artery: No stenosis. No dissection or occlusion. IMPRESSION: No stenosis or occlusion. REFERENCES: NASCET CRITERIA. The degree of internal carotid artery stenosis is based on NASCET criteria. Normal is no stenosis. Mild is less than 50% stenosis. Moderate is 50-69% stenosis. Severe is 70% to 99% stenosis. Total occlusion is no detectable patent lumen. Electronically signed by: Soto Pryor On 11/28/2020 22:36:12 PM
--- NOTE | 2020-11-28 22:38 | REPVR ---
PROCEDURE INFORMATION: Exam: MR Head Without Contrast Exam date and time: 11/28/2020 5:07 PM Age: 65 years old Clinical indication: Weakness, facial; Additional info: Right facial weakness TECHNIQUE: Imaging protocol: MR of the head without contrast. COMPARISON: 1. CT Head without contrast 11/28/2020 1:[address] Head without contrast 05/15/2020 2:53 PM FINDINGS: Brain: Moderate chronic microvascular ischemic changes. No acute infarct. Cerebral ventricles: Normal. No ventriculomegaly. Bones/joints: Unremarkable. Paranasal sinuses: Normal as visualized. No acute sinusitis. Mastoid air cells: Normal as visualized. No mastoid effusion. Orbital cavity: Unremarkable. Soft tissues: Unremarkable. Other findings: No hemorrhage. IMPRESSION: No acute intracranial abnormality. Electronically signed by: Soto Pryor On 11/28/2020 22:38:00 PM
--- NOTE | 2020-11-28 22:40 | REPVR ---
PROCEDURE INFORMATION: Exam: MRA Head Without Contrast; Arteriography Exam date and time: 11/28/2020 5:07 PM Age: 65 years old Clinical indication: Weakness; Additional info: Right facial weakness TECHNIQUE: Imaging protocol: Magnetic resonance angiography head without contrast. Exam focused on the arteries. COMPARISON: 1. MRA BRAIN W/O CONTRAST 04/20/2018 6:[address] Head without contrast 11/28/2020 1:38 PM FINDINGS: ANTERIOR CIRCULATION: Right internal carotid artery: Intracranial segment is patent with no significant stenosis. No aneurysm. Right middle cerebral artery: No occlusion or significant stenosis. No aneurysm. Right anterior cerebral artery: No occlusion or significant stenosis. No aneurysm. Left internal carotid artery: Intracranial segment is patent with no significant stenosis. No aneurysm. Left middle cerebral artery: No occlusion or significant stenosis. No aneurysm. Left anterior cerebral artery: No occlusion or significant stenosis. No aneurysm. POSTERIOR CIRCULATION: Right vertebral artery: Right vertebral artery ends in PICA. Left vertebral artery: The left vertebral artery continues as the basilar artery. Basilar artery: No occlusion or significant stenosis. No aneurysm. Right posterior cerebral artery: No occlusion or significant stenosis. No aneurysm. Left posterior cerebral artery: No occlusion or significant stenosis. No aneurysm. IMPRESSION: No stenosis or occlusion of the intracranial arteries. Electronically signed by: Soto Pryor On 11/28/2020 22:40:08 PM
[2020-11-28] MEDS ORDERED: SLF 3 ML SYR IV PRN (22:50)
[2020-11-28] MEDS: CALAMINE LOTION 177 ML BTL TOP SCH (23:04)
[2020-11-28] MEDS: ceFAZolin SOD 500 MG in D5W MINI-BAG PLUS 50 ML IV SCH (23:04)
[2020-11-29] VITALS: BP 156/54
[2020-11-29 04:00] VITALS: BP 125/58
[2020-11-29] MEDS: SLF 3 ML SYR IV SCH ×2 (05:24→13:28)
[2020-11-29] MEDS: ceFAZolin SOD 500 MG in D5W MINI-BAG PLUS 50 ML IV SCH ×2 (05:24→13:28)
[2020-11-29] MEDS ORDERED: LEVOTHYROXINE 88MCG TABLET (0.088 MG) PO SCH (06:00)
--- NOTE | 2020-11-29 07:20 | ECGEPIP ---
[facility] - ED Test Date: 2020-11-28 Pat Name: KISHOR JOLLEY Department: Room: - Gender: Female Children'S Attendant: ERICK : 1955 Requested By: LINDSEY SIMMONS Order Number: [id number] Reading MD: Saman Jimenez Measurements Intervals [place] Rate: 74 P: 35 [place]: 126 QRS: -24 QRSD: 80 T: 7 QT: 420 QTc: 466 Interpretive Statements Normal sinus rhythm Minimal voltage criteria for LVH, may be normal variant ( R in aVL ) Nonspecific ST abnormality SIMILAR TO 10/28/19 Electronically Signed on 11-29-2020 7:20:39 EDT by Saman Jimenez
[2020-11-29] MEDS ORDERED: hydrOXYzine 50 MG TAB PO PRN (07:50)
[2020-11-29] MEDS ORDERED: BACI1CAP PO ×2 (07:58→14:40)
[2020-11-29] MEDS ORDERED: CEPH500C PO ×2 (07:58→14:40)
[2020-11-29] MEDS ORDERED: TRIA1OI TOP ×2 (07:58→14:40)
[2020-11-29] MEDS ORDERED: DOXY-350 PO (07:58)
[2020-11-29 08:00] VITALS: BP 142/85
[2020-11-29] MEDS ORDERED: FUROSEMIDE 20 MG TAB PO SCH (09:00)
[2020-11-29] MEDS ORDERED: POTASSIUM CHLORIDE 10 MEQ SR TABLET PO SCH (09:00)
[2020-11-29] MEDS ORDERED: FLUoxetine 20 MG CAP PO SCH (09:00)
[2020-11-29] MEDS ORDERED: TOPIRAMATE (TopAMAX) 100 MG TAB PO SCH (09:00)
[2020-11-29] MEDS ORDERED: ASPIRIN 81 MG CHEW TABLET PO SCH (09:00)
[2020-11-29] MEDS ORDERED: CARVedilol 12.5 MG TAB PO SCH (09:00)
[2020-11-29] MEDS ORDERED: CLOPIDOGREL 75 MG TAB PO SCH (09:00)
[2020-11-29] MEDS ORDERED: GABAPENTIN 300 MG CAP PO SCH (09:00)
[2020-11-29] MEDS ORDERED: RANOLAZINE 500 MG ER TAB PO SCH (09:00)
[2020-11-29] MEDS: CALAMINE LOTION 177 ML BTL TOP SCH (09:06)
[2020-11-29 09:07] VITALS: BP 142/85
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
--- NOTE | 2020-11-29 10:48 | DS.PDOC ---
Discharge Summary General Date of Admission Nov 28, 2020 at 17:07 Date of Discharge 11/29/20 Discharge Summary DISCHARGE DIAGNOSES: Left facial and neck cellulitis Right facial weakness CVA has been ruled out Uncontrolled hypertension Obesity History of CAD IA stents Mixed hyperlipidemia History of chronic maxillary sinusitis Anxiety depression Stage III chronic kidney disease Hypothyroidism Cervical radiculopathy Chronic back pain HOSPITAL COURSE: 65-year-old female presented to the emergency room with 2-day history of left face and neck redness pruritus and maculopapular rash with no prior history of mosquito bite abrasion or traumatic injury without fever chills at home patient has not taken any medications for this at home and decided to be evaluated in the ER. In the ER she was noted to have a right facial droop without bilateral upper or lower extremity weakness paresthesias expressive aphasia dysphagia odynophagia blurred vision diplopia. CT of the head was negative for acute CVA according to the patient's patient has had a right facial droop on and off for the past 1 month. They had mentioned this to their civil design specialist Dr. Gee in the office no further work-up was done she is currently on aspirin and Plavix and compliant with this MRI of the brain was negative MRA of the brain negative patient did not have aspiration risk she was admitted for left face and neck cellulitis with IV cefazolin Bacid to decrease risk of C. difficile continued on her home medications. Telemetry was unremarkable overnight cardiac markers negative she had no new neurological symptoms overnight and is discharged home in stable condition She had uncontrolled hypertension was given antihypertensives with good response. DISCHARGE MEDICATIONS: Please see below. ALLERGIES: Please see below. PHYSICAL EXAMINATION ON DISCHARGE: VITAL SIGNS: Please see below. GENERAL: Chronic right facial weakness awake alert oriented x3 no respiratory distress HEENT: Moist mucous membranes no JVD thyromegaly cervical lymphadenopathy CARDIOVASCULAR EXAMINATION: S1-S2 sinus rhythm RESPIRATORY EXAMINATION: Air entry is equal bilaterally no adventitious breath sounds clear to auscultation ABDOMINAL EXAMINATION: Positive bowel sounds soft nontender nondistended EXTREMITIES: No cyanosis or clubbing SKIN: DECREASED ERYTHEMA OF THE LEFT MANDIBULAR FACE NECK NO INDURATION NO WARMTH OR FLUCTUANCE LABORATORY DATA: Please see below. IMAGING: See below ACTIVITY: As tolerated DIET: 2 g sodium DISCHARGE PLAN: Primary care physician follow-up within 5 days of hospital discharge DISPOSITION: Home with services. DISCHARGE INSTRUCTIONS: 1. Complete a total of 7 days of antibiotics Bacid if you develop diarrhea more than 5-10 times a day call your primary care physician to rule out Clostridium infection ITEMS TO FOLLOWUP ON ON OUTPATIENT: 1. Blood pressure check within 5 days of hospital discharge with blood pressure medications to be adjusted by your primary care physician DISCHARGE CONDITION: Stable TIME SPENT ON DISCHARGE: 30 minutes Vital Signs/I&Os Vital Signs Date Time Temp Pulse Resp B/P (MAP) Pulse Ox O2 Delivery O2 Flow Rate FiO2 11/29/20 09:07 142/85 11/29/20 08:00 98.1 77 18 96 Room Air I&O- Last 24 Hours up to 6 AM 11/29/20 06:00 Intake Total 0 ml Balance 0 ml Laboratory Data Labs 24H Laboratory Tests 2 11/28/20 13:51: Immature Granulocyte % (Auto) 1.3, Neutrophils (%) (Auto) 66.6H, Lymphocytes (%) (Auto) 22.7L, Monocytes (%) (Auto) 6.9, Eosinophils (%) (Auto) 1.8, Basophils (%) (Auto) 0.7, Neutrophils # (Auto) 6.3, Lymphocytes # (Auto) 2.1, Monocytes # (Auto) 0.7, Eosinophils # (Auto) 0.2, Basophils # (Auto) 0.1, Nucleated Red Blood Cells % (auto) 0.0, Prothrombin Time 12.2, Prothromb Time International Ratio 0.89, Activated Partial Thromboplast Time 27.0, Total Creatine Kinase 84, Creatine Kinase MB 2.1, Creatine Kinase MB Relative Index 2.50, Troponin I < 0.02 11/28/20 13:53: POC Glucose (Misc Panel) 106H, POC Sodium (Misc Panel) 145, POC Potassium (Misc Panel) 3.4L, POC Chloride (Misc Panel) 103, POC Total CO2 (Misc Panel) 27.0, POC Blood Urea Nitrogen (Misc Panel 12, POC Ionized Calcium (Misc Panel) 4.7, POC Creatinine (Misc Panel) 1.1, POC Hematocrit (Misc Panel) 40.0 11/28/20 17:20: Coronavirus (COVID-19)(PCR) NEGATIVE, Influenza Type A (RT-PCR) NEGATIVE, Influenza Type B (RT-PCR) NEGATIVE, Respiratory Syncytial Virus (PCR) NEGATIVE 11/29/20 05:45: CBC/BMP Laboratory Tests 11/28/20 13:51 Discharge Medications Scheduled Aspirin (Aspirin) 81 Mg Chw, 81 MG PO DAILY, (Reported) Atorvastatin Calcium (Atorvastatin Calcium) 40 Mg Tablet, 40 MG PO QHS, (Reported) Bacillus Coagulans (Bacid with Lactospore) 1 Each Capsule, 1 CAP PO WMHS Carvedilol (Carvedilol) 12.5 Mg Tablet, 12.5 MG PO BID, (Reported) Cephalexin (Cephalexin) 500 Mg Capsule, 500 MG PO QID Clopidogrel Bisulfate (Plavix) 75 Mg Tab, 75 MG PO DAILY, (Reported) Doxycycline Monohydrate (Doxycycline) 100 Mg Capsule, 100 MG PO BID Fluoxetine Hcl (Fluoxetine HCl) 40 Mg Capsule, 40 MG PO DAILY, (Reported) Furosemide (Lasix) 20 Mg Tab, 40 MG PO DAILY, (Reported) Gabapentin (Neurontin) 300 Mg Cap, 300 MG PO TID, (Reported) Levothyroxine Sodium (Levoxyl) 88 Mcg Tablet, 88 MCG PO DAILY, (Reported) Lisinopril (Lisinopril) 20 Mg Tab, 20 MG PO DAILY, (Reported) Magnesium Oxide (Magnesium Oxide) 400 Mg Tab, 400 MG PO DAILY, (Reported) Potassium Chloride (K-Tab ER) 10 Meq Tablet.er, 20 MEQ PO BID, (Reported) Ranolazine (Ranexa) 500 Mg Barber, 500 MG PO BID, (Reported) Topiramate (Topiramate) 100 Mg Tablet, 100 MG PO BID, (Reported) Triamcinolone Acet (Triamcinolone Acetonide 0.1% Oint) 15 Gm Oint...g., 1 APLCT TOP BID Scheduled PRN Hydroxyzine HCl (Hydroxyzine HCl) 50 Mg Tab, 50 MG PO BID PRN for ANXIETY/AGITA TION, (Reported) Nitroglycerin (Nitroglycerin) 0.4 Mg Sub, 0.4 MG SL NITRO PRN for CHEST PAIN, (Reported) Miscellaneous Medications [Patient Comment] , (Reported) MED LIST OBTAINED FROM HEALTH CLINIC VISIT WITH FARZANA NUNEZ IN JUL 2020. UNABLE TO VERIFY WITH PHARMACY Allergies Coded Allergies: No Known Allergies (Unverified , 07/18/19) MACO MOLINA MD Nov 29, 2020 10:48
[2020-11-29 12:00] VITALS: BP 121/65
[2020-11-29] MEDS ORDERED: ATORVASTATIN 20 MG TAB PO SCH (21:00)
[2020-11-30 17:07] LABS: Lyme Disease IgG/IgM Antibodie <0.91 ISR (0.00-0.90); Lyme Disease IgM Ab Quantitati <0.80 index (0.00-0.79)
== END 2020-11-29 15:43 | disposition home or self-care (01) | DRG 92 ==
LOC: M ED 13:19 → M ED INP 17:07 → ENRESERV 19:36 → M PCU 22:16
PROVIDERS: ADMIT General Practice; ATTEND General Practice
DX: R29.810 Facial weakness (principal); L03.211 Cellulitis of face; L03.221 Cellulitis of neck; E66.9 Obesity, unspecified; N18.30 Chronic kidney disease, stage 3 unspecified; E03.9 Hypothyroidism, unspecified; F41.9 Anxiety disorder, unspecified; F32.9 Major depressive disorder, single episode, unspecified; E78.2 Mixed hyperlipidemia; I25.10 Atherosclerotic heart disease of native coronary artery without angina pectoris; I25.2 Old myocardial infarction; Z95.2 Presence of prosthetic heart valve; M54.5 Low back pain; Z79.82 Long term (current) use of aspirin; Z79.899 Other long term (current) drug therapy; J32.0 Chronic maxillary sinusitis; I15.0 Renovascular hypertension; Z86.73 Personal history of transient ischemic attack (TIA), and cerebral infarction without residual deficits

== ENCOUNTER 2020-12-06 13:54 | Emergency (ER) | payer OTHER ==
[~2020-12-06] VITALS: Ht 162.6 cm; Wt 86.5 kg
[~2020-12-06 13:54] MED LIST changes: +ATOR40TA75 PO; +BACI1CAP PO; +CARV12.5 PO; +CEPH500C PO; +DOXY-350 PO; +FLUO40CA PO; +LEVO88TA24 PO; +PATIENT COMMENT; +TOPI100T9 PO; +TRIA1OI TOP
[2020-12-06] MEDS ORDERED: HYDROCORTISONE 1% CREAM 30 GM TOP ONE (14:30)
[2020-12-06] MEDS ORDERED: diphenhydrAMINE 25MG CAP PO ONE (14:30)
[2020-12-06] MEDS ORDERED: CETIRIZINE (ZyrTEC) 10 MG TAB PO ONE (14:30)
[2020-12-06] MEDS ORDERED: ALL10TAB2 PO (14:32)
[2020-12-06] MEDS ORDERED: HYDR28CR33 TOP (14:32)
[2020-12-06 14:38] VITALS: BP 139/79
== END 2020-12-06 14:50 | disposition home or self-care (01) ==
LOC: M ED 13:54
DX: S50.861A Insect bite (nonvenomous) of right forearm, initial encounter (principal); W57.XXXA Bitten or stung by nonvenomous insect and other nonvenomous arthropods, initial encounter; Y92.9 Unspecified place or not applicable; Y93.9 Activity, unspecified; Y99.9 Unspecified external cause status; Z79.82 Long term (current) use of aspirin; Z79.899 Other long term (current) drug therapy

== ENCOUNTER 2020-12-10 07:54 | Emergency (ER) | payer OTHER ==
[~2020-12-10] VITALS: Ht 165.1 cm; Wt 89.6 kg
[~2020-12-10 07:54] MED LIST changes: +ALL10TAB2 PO; +HYDR28CR33 TOP
--- NOTE | 2020-12-10 08:24 | REP ---
INDICATION: trauma COMPARISON: None. TECHNIQUE: AP, lateral, bilateral oblique views right 5th toe. FINDINGS: Transverse fracture through the 5th proximal phalanx with overlying soft tissue swelling. Remainder of the examination appears normal. IMPRESSION: . Transverse fracture of the 5th proximal phalanx. <Electronically signed by Blaise Mahmood > 12/10/20 [id number]
[2020-12-10] MEDS ORDERED: CEPH500C (08:29)
[2020-12-10 09:33] VITALS: BP 118/67
== END 2020-12-10 09:45 | disposition home or self-care (01) ==
LOC: M ED 07:54
DX: S92.514A Nondisplaced fracture of proximal phalanx of right lesser toe(s), initial encounter for closed fracture (principal); S91.114A Laceration without foreign body of right lesser toe(s) without damage to nail, initial encounter; W22.8XXA Striking against or struck by other objects, initial encounter; Y92.019 Unspecified place in single-family (private) house as the place of occurrence of the external cause; Y93.9 Activity, unspecified; Y99.9 Unspecified external cause status

== ENCOUNTER → 2021-01-01 | Outpatient (CLI) | payer OTHER ==
[~2021-01-01] MED LIST changes: +CEPH500C
--- NOTE | 2021-01-01 12:35 | REP ---
INDICATION: PAIN IN RT TOE 5TH. COMPARISON: 12/10/2020 TECHNIQUE: Four views right foot 5th digit FINDINGS: The oblique fracture seen through the diaphysis of the proximal phalanx of the 5th digit is unchanged. There is no evidence of callus formation at this time. IMPRESSION: No change <Electronically signed by Devin Davis > 01/01/21 [id number]
== END ==
LOC: M SOG 09:06
PROVIDERS: ATTEND Orthopaedic Surgery Adult Reconstructive Orthopaedic Surgery
DX: M79.674 Pain in right toe(s) (principal)

== ENCOUNTER 2021-01-31 15:01 | Emergency (ER) | payer OTHER ==
[~2021-01-31] VITALS: Ht 160 cm; Wt 84.2 kg
[2021-01-31 15:07] VITALS: BP 204/122
== END 2021-01-31 17:19 | disposition left against medical advice (07) ==
LOC: M ED 15:01
DX: Z53.21 Procedure and treatment not carried out due to patient leaving prior to being seen by health care provider (principal)

== ENCOUNTER 2021-05-22 02:24 | Emergency (ER) | payer OTHER ==
[~2021-05-22] VITALS: Ht 160 cm; Wt 68.2 kg
[2021-05-22] MEDS ORDERED: ACETAMINOPHEN 325 MG TAB PO ONE (06:30)
[2021-05-22 08:09] LABS: RSV AMPLIFICATION NEGATIVE (NEGATIVE)
--- NOTE | 2021-05-22 08:19 | ECGEPIP ---
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
[2021-05-22 10:10] VITALS: BP 122/78
== END 2021-05-22 10:13 | disposition home or self-care (01) ==
LOC: M ED 02:24
DX: U07.1 COVID-19 (principal); I10 Essential (primary) hypertension; I25.2 Old myocardial infarction; J44.9 Chronic obstructive pulmonary disease, unspecified; Z90.49 Acquired absence of other specified parts of digestive tract; Z95.5 Presence of coronary angioplasty implant and graft
CPT/HCPCS: 87631; 93005; 99284; M0243

== ENCOUNTER 2021-05-22 11:55 | Outpatient (CLI) | payer MEDICARE, OTHER ==
[2021-05-22 10:34] VITALS: BP 125/66
[2021-05-22 11:04] VITALS: BP 125/68
[2021-05-22 11:34] VITALS: BP 124/68
[~2021-05-22 11:55] MED LIST changes: +ACETAMINOPHEN TAB 650MG DOSE (2X325MG) PO PRN; +ALBUTEROL 90 MCG/ACT 8GM HFA INHALER INH PRN; +ALBUTEROL SULFATE 2.5 MG/0.5 ML INH NEB SOLN INH PRN; +CASIRIVIMAB/IMDEVIMAB 1,200 MG in NS 250 ML IV ONE; +EPINEPHrine INJ 1 MG/ML 1ML AMP IM PRN; +NS 1,000 ML IV SCH; +diphenhydrAMINE 50MG/ML VIAL (J1200) IV PRN; +methylPREDNISolone 125MG 2ML VIAL IV PRN
[2021-05-22 12:34] VITALS: BP 139/76
--- NOTE | 2021-05-22 13:16 | HPEPDOC ---
[facility] Medical History & Physical Date of Admission May 22, 2021 Date of Service: May 22, 2021 History and Physical Chief complaint: Who presented to the ER with reported shortness of breath, cough and headache History of present illness: Patient is a 66-year-old female with a PMHx of CAD s/p Stent (Hx of [place]), Hx of TIA (2017), HTN, DLP, Hypothyroidism, CKD3, Suspected KIM, Obesity, Anxiety / Depression, Obesity, Chronic lower back pain, who presented to the ER on 05/22 with complaints of shortness of breath, cough and headache. Patient reported that she was at well now on 05/20 and was tested for COVID19 once her symptoms started. Patient reports a mild headache. Denies any nausea, vomiting, abdominal pain consultation, diarrhea, or urinary discomfort. Patient denies any chest pain but does report shortness of breath. Patient does report a cough that is mostly nonproductive. She denies any fevers, chills. Denies any changes in her weight or appetite. The ER contacted hospital service to provide monoclonal antibody infusion services. Patient is agreeable and his signed consent paperwork. Past Medical History: CAD s/p Stent (Hx of [place]), Hx of TIA (2018), HTN, DLP, Hypothyroidism, CKD3, Suspected KIM, Obesity, Anxiety / Depression, Obesity, Chronic lower back pain Past Surgical History: Cholecystectomy in 2019. Closure of patent foramen ovale (PFO) with Amplatzer device, [facility] (2019) Breast biopsy 2016. Eye orbit surgery 1994. Allergies: See below Medications: See below Family History: - Reviewed and noncontributory Social History: - Denies the use of alcohol, tobacco or illicit drugs - Denies recent travel or sick contacts - Lives - Patient reports that her appetite Review of Systems: 10 point review of systems complete, all negative otherwise stated in HPI Physical exam: - Vitals: BP [139/76], HR [67], RR [16], Sat [96%RA], Temp [98.1F] - General: Lying in bed, Speaking in full sentences, AAOx3 - HEENT: NC, AT, PERRLA - CVS: RRR, +S1S2, - Murmurs / rubs / gallops - Lungs: Fair air entry bilaterally, No appreciable wheezing / rales / rhonchi - Abdomen: Soft, Non-distended, Non-tender - Extremities: No lower extremity edema, No calf tenderness - Neuro: No focal motor or sensory deficit - Skin: No visible rashes Labs: See below Imaging: See below EKG: See below Assessment and Plan: COVID19 - Patient presented to the ER with complaints of short of breath and cough with a mild headache - Patient was that shes been experiencing symptoms since 05/20 - [facility] and was tested on the same day; she did not get results and reported worsening symptoms and presented to the ER today - Currently patient appears to be saturating well on room air - She reports that she has received both doses of vaccine and booster shot - Patient is interested in receiving a monoclonal antibody infusion; patient has signed consent paperwork and she understands the risks/benefits - Will have outpatient follow-up with primary care provider and will have home services follow-up as per [facility] guidelines for COVID19 infections Thank you for this consultation. Hospital service will now sign off. Vital Signs Vital Signs Date Time Temp Pulse Resp B/P (MAP) Pulse Ox O2 Delivery O2 Flow Rate FiO2 05/22/21 12:34 98.1 67 16 139/76 (97) 96 Room Air Home Medications Scheduled Aspirin (Aspirin) 81 Mg Chw, 81 MG PO DAILY Atorvastatin Calcium (Atorvastatin Calcium) 40 Mg Tablet, 40 MG PO QHS Bacillus Coagulans (Bacid with Lactospore) 1 Each Capsule, 1 CAP PO WMHS Carvedilol (Carvedilol) 12.5 Mg Tablet, 12.5 MG PO BID Cetirizine HCl (All Day Allergy) 10 Mg Tablet, 1 TAB PO DAILY for allergy symptoms Clopidogrel Bisulfate (Plavix) 75 Mg Tab, 75 MG PO DAILY Fluoxetine Hcl (Fluoxetine HCl) 40 Mg Capsule, 40 MG PO DAILY Furosemide (Lasix) 20 Mg Tab, 40 MG PO DAILY Gabapentin (Neurontin) 300 Mg Cap, 300 MG PO TID Hydrocortisone/Aloe Vera (Hydrocortisone-Aloe 1% Cream) 28 Gm Cream..g., 1 APLCT TOP BID apply to affected area(s) Levothyroxine Sodium (Levoxyl) 88 Mcg Tablet, 88 MCG PO DAILY Lisinopril (Lisinopril) 20 Mg Tab, 20 MG PO DAILY Magnesium Oxide (Magnesium Oxide) 400 Mg Tab, 400 MG PO DAILY Potassium Chloride (K-Tab ER) 10 Meq Tablet.er, 20 MEQ PO BID Ranolazine (Ranexa) 500 Mg Barber, 500 MG PO BID Topiramate (Topiramate) 100 Mg Tablet, 100 MG PO BID Triamcinolone Acet (Triamcinolone Acetonide 0.1% Oint) 15 Gm Oint...g., 1 APLCT TOP BID apply to affected area(s) Scheduled PRN Hydroxyzine HCl (Hydroxyzine HCl) 50 Mg Tab, 50 MG PO BID PRN for ANXIETY/ AGITATION Nitroglycerin (Nitroglycerin) 0.4 Mg Sub, 0.4 MG SL NITRO PRN for CHEST PAIN Allergies Coded Allergies: No Known Allergies (Unverified , 07/18/19) SHALOM HERNANDEZ MD May 22, 2021 13:16
== END 2021-05-22 12:34 | disposition home or self-care (01) ==
LOC: M OPCLI4 11:55
PROVIDERS: ATTEND Internal Medicine
DX: U07.1 COVID-19 (principal)

== ENCOUNTER 2021-06-18 13:37 | Emergency (ER) | payer OTHER ==
[~2021-06-18] VITALS: Ht 160 cm; Wt 89.4 kg
[~2021-06-18 13:37] MED LIST changes: -ACETAMINOPHEN TAB 650MG DOSE (2X325MG) PO PRN; -ALBUTEROL 90 MCG/ACT 8GM HFA INHALER INH PRN; -ALBUTEROL SULFATE 2.5 MG/0.5 ML INH NEB SOLN INH PRN; -CASIRIVIMAB/IMDEVIMAB 1,200 MG in NS 250 ML IV ONE; -DICY20TA11 PO; +DICY20TA20 PO; -EPINEPHrine INJ 1 MG/ML 1ML AMP IM PRN; +FLUO-96 PO; -FLUO20CA20 PO; -LISI-898 PO; +LISI5TAB11 PO; -NS 1,000 ML IV SCH; -PROC10TA4 PO; +PROC10TA5 PO; -TOPI25CA3 PO; +TOPI25CA5 PO; -diphenhydrAMINE 50MG/ML VIAL (J1200) IV PRN; -methylPREDNISolone 125MG 2ML VIAL IV PRN
[2021-06-18 17:57] LABS: BASO % 0.5 % (0.0-1.0); EOS # 0.2 10^3/uL (0.0-0.5); EOS % 2.8 % (0.0-3.0); HEMATOCRIT 42.2 % (36.0-47.0); HEMOGLOBIN 13.2 g/dl (12.0-15.5); LYMPH # 1.5 10^3/uL (1.5-5.0); MEAN CORPUSCULAR HEMOGLOBIN 28.9 pg (27.0-33.0); MEAN CORPUSCULAR HGB CONC 31.3 g/dl (32.0-36.5); MEAN CORPUSCULAR VOLUME 92.3 fl (80.0-96.0); MONO # 0.6 10^3/uL (0.0-0.8); MONO % 9.3 % (2.0-8.0); NEUTROPHILS # 4.1 10^3/uL (1.5-8.5); NEUTROPHILS % 63.9 % (36.0-66.0); PLATELET COUNT, AUTOMATED 185 10^3/uL (150-450); RED BLOOD COUNT 4.57 10^6/uL (4.00-5.40); WHITE BLOOD COUNT 6.4 10^3/uL (4.0-10.0)
[2021-06-18] MEDS ORDERED: NS 1,000 ML IV ONE (18:50)
[2021-06-18 19:22] LABS: ALBUMIN 3.3 GM/DL (3.2-5.2); BILIRUBIN,DIRECT 0.1 MG/DL (0.0-0.2); BILIRUBIN,TOTAL 0.3 MG/DL (0.2-1.0); CALCIUM LEVEL 8.7 MG/DL (8.8-10.2); CREATININE FOR GFR 1.03 MG/DL (0.55-1.30); GLOMERULAR FILTRATION RATE 56.7 (>45); MAGNESIUM LEVEL 2.6 MG/DL (1.8-2.4); TOTAL PROTEIN 7.3 GM/DL (6.4-8.2)
[2021-06-18] MEDS ORDERED: ISOVUE-370 76% 100ML VIAL As Ordered ONE (19:47)
[2021-06-18 21:02] VITALS: BP 162/100
[2021-06-18 21:24] VITALS: BP 162/100
[2021-06-18] MEDS ORDERED: CARVedilol 12.5 MG TAB PO ONE (22:00)
== END 2021-06-18 21:33 | disposition home or self-care (01) ==
LOC: M ED 13:37
DX: J12.82 Pneumonia due to coronavirus disease 2019 (principal); K52.9 Noninfective gastroenteritis and colitis, unspecified; I10 Essential (primary) hypertension; I25.2 Old myocardial infarction; E78.5 Hyperlipidemia, unspecified; K21.9 Gastro-esophageal reflux disease without esophagitis; J44.9 Chronic obstructive pulmonary disease, unspecified; C18.9 Malignant neoplasm of colon, unspecified; Z86.73 Personal history of transient ischemic attack (TIA), and cerebral infarction without residual deficits; Z95.5 Presence of coronary angioplasty implant and graft
CPT/HCPCS: 74177; 80048; 80076; 83690; 83735; 85025; 96360; 96361; 99284; Q9967

== ENCOUNTER 2021-06-24 19:52 | Emergency (ER) | payer OTHER ==
[~2021-06-24] VITALS: Ht 160 cm; Wt 88.0 kg
[2021-06-24 19:52] VITALS: BP 190/94
== END 2021-06-24 23:27 | disposition left against medical advice (07) ==
LOC: M ED 19:52
DX: Z53.21 Procedure and treatment not carried out due to patient leaving prior to being seen by health care provider (principal)

== ENCOUNTER 2021-07-15 18:06 | Emergency (ER) | payer OTHER ==
[~2021-07-15] VITALS: Ht 160 cm; Wt 89.5 kg
[2021-07-15 23:27] VITALS: BP 122/78
== END 2021-07-15 23:30 | disposition home or self-care (01) ==
LOC: M ED 18:06
DX: M25.512 Pain in left shoulder (principal); I25.2 Old myocardial infarction; R94.31 Abnormal electrocardiogram [ECG] [EKG]; I10 Essential (primary) hypertension; Z86.79 Personal history of other diseases of the circulatory system; Z79.01 Long term (current) use of anticoagulants; Z79.899 Other long term (current) drug therapy

== ENCOUNTER 2021-10-30 23:52 | Emergency (ER) | payer OTHER, MEDICARE ==
[~2021-10-30] VITALS: Ht 160 cm; Wt 90.3 kg
[2021-10-31] MEDS ORDERED: ONDA8TAB8 PO (00:07)
[2021-10-31 02:57] LABS: CK-MB VALUE MASS 2.7 NG/ML (<3.6); MB/CK RELATIVE INDEX 1.63 (< OR =4)
[2021-10-31 03:54] LABS: CK-MB VALUE MASS 2.6 NG/ML (<3.6); MB/CK RELATIVE INDEX 1.71 (< OR =4)
[2021-10-31 04:07] LABS: ALBUMIN 3.3 GM/DL (3.2-5.2); ALT/SGPT 22 U/L (12-78); BILIRUBIN,DIRECT < 0.1 MG/DL (0.0-0.2); BILIRUBIN,TOTAL 0.3 MG/DL (0.2-1.0); BLOOD UREA NITROGEN 11 MG/DL (7-18); CALCIUM LEVEL 9.2 MG/DL (8.8-10.2); CARBON DIOXIDE LEVEL 30 MEQ/L (21-32); CHLORIDE LEVEL 106 MEQ/L (98-107); CREATININE FOR GFR 1.16 MG/DL (0.55-1.30); GLOMERULAR FILTRATION RATE 49.5 (>45); GLUCOSE, FASTING 160 MG/DL (70-100); NT-PRO BNP 234 PG/ML (<125); POTASSIUM SERUM 2.9 MEQ/L (3.5-5.1); SODIUM LEVEL 144 MEQ/L (136-145); TOTAL PROTEIN 7.2 GM/DL (6.4-8.2)
[2021-10-31 08:05] LABS: BASO # 0.1 10^3/uL (0.0-0.2); BASO % 0.8 % (0.0-1.0); EOS # 0.2 10^3/uL (0.0-0.5); EOS % 2.2 % (0.0-3.0); HEMATOCRIT 43.1 % (36.0-47.0); LYMPH # 1.7 10^3/uL (1.5-5.0); LYMPH % 19.3 % (24.0-44.0); MEAN CORPUSCULAR HEMOGLOBIN 28.9 pg (27.0-33.0); MEAN CORPUSCULAR HGB CONC 32.5 g/dl (32.0-36.5); MEAN CORPUSCULAR VOLUME 88.9 fl (80.0-96.0); MONO # 0.6 10^3/uL (0.0-0.8); MONO % 7.3 % (2.0-8.0); NEUTROPHILS # 6.1 10^3/uL (1.5-8.5); NEUTROPHILS % 69.8 % (36.0-66.0); PLATELET COUNT, AUTOMATED 208 10^3/uL (150-450); RED BLOOD COUNT 4.85 10^6/uL (4.00-5.40); WHITE BLOOD COUNT 8.8 10^3/uL (4.0-10.0)
[2021-10-31] MEDS ORDERED: KCL 10MEQ/100ML SWI (KRUN) 10 MEQ in IV 1 EA IV ONE (08:10)
[2021-10-31] MEDS ORDERED: POTASSIUM CHLORIDE 10MEQ SR TABLET PO ONE (08:10)
[2021-10-31 08:16] LABS: INR 0.92; PARTIAL THROMBOPLASTIN TIME 26.8 SECONDS (25.9-37.0); PROTHROMBIN TIME 12.8 SECONDS (12.7-14.5)
[2021-10-31 08:39] LABS: RSV AMPLIFICATION NEGATIVE (NEGATIVE)
[2021-10-31 09:19] LABS: POTASSIUM SERUM 2.6 MEQ/L (3.5-5.1)
[2021-10-31 09:40] LABS: MAGNESIUM LEVEL 2.5 MG/DL (1.8-2.4)
[2021-10-31] MEDS ORDERED: POTA1TAB14 PO (14:13)
[2021-10-31 14:50] VITALS: BP 124/58
== END 2021-10-31 14:53 | disposition home or self-care (01) ==
LOC: M ED 23:52
DX: R06.02 Shortness of breath (principal); E87.6 Hypokalemia; R19.7 Diarrhea, unspecified; R94.31 Abnormal electrocardiogram [ECG] [EKG]; I25.2 Old myocardial infarction; I10 Essential (primary) hypertension; J44.9 Chronic obstructive pulmonary disease, unspecified; E78.5 Hyperlipidemia, unspecified; N18.30 Chronic kidney disease, stage 3 unspecified; C18.9 Malignant neoplasm of colon, unspecified; Z86.19 Personal history of other infectious and parasitic diseases; Z95.5 Presence of coronary angioplasty implant and graft; Z79.811 Long term (current) use of aromatase inhibitors; Z79.899 Other long term (current) drug therapy

== ENCOUNTER → 2021-11-28 | Outpatient (CLI) | payer MEDICARE, OTHER ==
[~2021-11-28] MED LIST changes: +ONDA8TAB8 PO; +POTA1TAB14 PO
== END ==
LOC: M LABSMTC 09:15
PROVIDERS: ATTEND Anesthesiology
DX: Z20.828 Contact with and (suspected) exposure to other viral communicable diseases (principal); Z11.59 Encounter for screening for other viral diseases

== ENCOUNTER 2021-12-03 06:40 | Day surgery (SDC) | payer MEDICARE, OTHER ==
[~2021-12-03] VITALS: Ht 157.5 cm; Wt 87.9 kg
[~2021-12-03 06:40] MED LIST changes: +NS 1,000 ML IV ONE
[2021-12-03] MEDS ORDERED: propofoL 200 MG/20 ML VIAL As Ordered ONE (08:42)
[2021-12-03 09:56] VITALS: BP 128/60
== END 2021-12-03 09:55 | disposition home or self-care (01) ==
LOC: M OPP 06:40
PROVIDERS: ATTEND Internal Medicine Gastroenterology
DX: D12.3 Benign neoplasm of transverse colon (principal); D12.5 Benign neoplasm of sigmoid colon; Z98.0 Intestinal bypass and anastomosis status; R10.84 Generalized abdominal pain; R19.4 Change in bowel habit; Z85.038 Personal history of other malignant neoplasm of large intestine; Z86.010 Personal history of colon polyps; Z80.0 Family history of malignant neoplasm of digestive organs; Z79.02 Long term (current) use of antithrombotics/antiplatelets; Z79.82 Long term (current) use of aspirin; Z79.891 Long term (current) use of opiate analgesic; Z79.899 Other long term (current) drug therapy

== ENCOUNTER → 2022-01-23 | Outpatient (REF) | payer MEDICARE, OTHER ==
[~2022-01-23] MED LIST changes: -NS 1,000 ML IV ONE
== END ==
LOC: M LAB REF 08:52
PROVIDERS: ATTEND Surgery
DX: D17.22 Benign lipomatous neoplasm of skin and subcutaneous tissue of left arm (principal)

== ENCOUNTER 2022-02-18 19:19 | Emergency (ER) | payer MEDICARE, OTHER ==
[~2022-02-18] VITALS: Ht 167.6 cm; Wt 93.1 kg
[2022-02-18 19:52] LABS: BASO % 0.3 % (0.0-1.0); EOS # 0.1 10^3/uL (0.0-0.5); EOS % 1.5 % (0.0-3.0); HEMATOCRIT 37.1 % (36.0-47.0); HEMOGLOBIN 12.1 g/dl (12.0-15.5); LYMPH # 1.3 10^3/uL (1.5-5.0); LYMPH % 13.6 % (24.0-44.0); MEAN CORPUSCULAR HEMOGLOBIN 29.7 pg (27.0-33.0); MEAN CORPUSCULAR HGB CONC 32.6 g/dl (32.0-36.5); MEAN CORPUSCULAR VOLUME 91.2 fl (80.0-96.0); MONO # 1.1 10^3/uL (0.0-0.8); MONO % 11.6 % (2.0-8.0); NEUTROPHILS # 6.8 10^3/uL (1.5-8.5); NEUTROPHILS % 72.4 % (36.0-66.0); PLATELET COUNT, AUTOMATED 145 10^3/uL (150-450); RED BLOOD COUNT 4.07 10^6/uL (4.00-5.40); WHITE BLOOD COUNT 9.4 10^3/uL (4.0-10.0)
[2022-02-18 20:27] LABS: ALBUMIN 3.3 GM/DL (3.2-5.2); BILIRUBIN,TOTAL 0.6 MG/DL (0.2-1.0); CALCIUM LEVEL 8.1 MG/DL (8.8-10.2); CREATININE FOR GFR 1.29 MG/DL (0.55-1.30); GLOMERULAR FILTRATION RATE 43.8 (>45); POTASSIUM SERUM 2.9 MEQ/L (3.5-5.1); TOTAL PROTEIN 6.8 GM/DL (6.4-8.2)
[2022-02-18] MEDS ORDERED: KCL 10MEQ/100ML SWI (KRUN) 10 MEQ in IV 1 EA IV ONE (20:30)
[2022-02-18] MEDS ORDERED: POTASSIUM CHLORIDE 10MEQ SR TABLET PO ONE ×2 (20:30→23:50)
[2022-02-18] MEDS ORDERED: HOME MED LIST COMPLETE! XX SCH (21:25)
[2022-02-18] MEDS ORDERED: ACETAMINOPHEN TAB 650MG DOSE (2X325MG) PO ONE (21:25)
[2022-02-18 21:51] LABS: CK-MB VALUE MASS < 1.0 NG/ML (<3.6); CPK CREATINE PHOSPHOKINASE 120 U/L (26-192); MB/CK RELATIVE INDEX 0.83 (< OR =4)
[2022-02-18 22:45] VITALS: O2SAT 99
[2022-02-19 00:30] VITALS: BP 140/70
[2022-02-19] MEDS ORDERED: NIRMATRELVIR/RITONAVIR (RENAL) CO-PACK (EUA) PO SCH ×2 (09:00)
== END 2022-02-19 00:46 | disposition home or self-care (01) ==
LOC: M ED 19:19
DX: U07.1 COVID-19 (principal); E87.6 Hypokalemia; J44.9 Chronic obstructive pulmonary disease, unspecified; N18.30 Chronic kidney disease, stage 3 unspecified; I10 Essential (primary) hypertension; Z95.5 Presence of coronary angioplasty implant and graft; Z86.79 Personal history of other diseases of the circulatory system; Z86.73 Personal history of transient ischemic attack (TIA), and cerebral infarction without residual deficits

== ENCOUNTER → 2022-06-11 | Outpatient (REF) | payer MEDICARE, OTHER ==
[~2022-06-11] MED LIST changes: +CLOP75TA99 PO; -DOXY-350 PO; +DOXY-444 PO; -PLAV1TAB2 PO
[2022-06-11 13:26] LABS: HEMOGLOBIN A1c 7.9 % (4.0-6.0)
[2022-06-11 13:38] LABS: ALBUMIN 3.5 G/DL (3.2-5.2); BILIRUBIN,TOTAL 0.5 MG/DL (0.3-1.2); CALCIUM LEVEL 8.8 MG/DL (8.3-10.6); CHOLESTEROL RISK RATIO 3.84 (<5); CREATININE FOR GFR 1.38 MG/DL (0.55-1.30); GLOMERULAR FILTRATION RATE 40.4 (>45); HDL CHOLESTEROL 46.3 MG/DL (>40); LDL CHOLESTEROL 94.9 MG/DL (<100); POTASSIUM SERUM 4.3 MMOL/L (3.5-5.1); TOTAL PROTEIN 6.7 G/DL (5.7-8.2)
[2022-06-11 13:39] LABS: THYROID STIMULATING HORMONE 13.02 uIU/ML (0.55-4.78)
== END ==
LOC: M LAB REF 12:27
PROVIDERS: ATTEND Family Medicine Addiction Medicine
DX: R73.9 Hyperglycemia, unspecified (principal); Z79.899 Other long term (current) drug therapy

== ENCOUNTER → 2022-09-05 | Outpatient (REF) | payer MEDICARE, OTHER ==
[2022-09-05 19:02] LABS: ALBUMIN 3.3 G/DL (3.2-5.2); BILIRUBIN,TOTAL 0.8 MG/DL (0.3-1.2); CREATININE FOR GFR 1.18 MG/DL (0.55-1.30); GLOMERULAR FILTRATION RATE 48.3 (>45); POTASSIUM SERUM 3.8 MMOL/L (3.5-5.1); THYROID STIMULATING HORMONE 12.951 uIU/ML (0.55-4.78); TOTAL PROTEIN 6.4 G/DL (5.7-8.2)
== END ==
LOC: M LAB REF 17:07
PROVIDERS: ATTEND Family Medicine Addiction Medicine
DX: E11.9 Type 2 diabetes mellitus without complications (principal)

== ENCOUNTER 2022-12-19 20:28 | Emergency (ER) | payer OTHER ==
[~2022-12-19] VITALS: Ht 162.6 cm; Wt 68.2 kg
[2022-12-19 20:28] VITALS: BP 187/94; TEMP 98.1; O2SAT 97
[~2022-12-19 20:28] MED LIST changes: -K-TA10TA2 PO; +POTA-165 PO; +POTA-298 PO; -POTA1TAB14 PO
== END 2022-12-20 01:09 | disposition left against medical advice (07) ==
LOC: M ED 20:28
DX: Z53.21 Procedure and treatment not carried out due to patient leaving prior to being seen by health care provider (principal)

== ENCOUNTER 2022-12-20 07:11 | Emergency (ER) | payer OTHER ==
[~2022-12-20] VITALS: Ht 162.6 cm; Wt 87.0 kg
[2022-12-20 07:12] VITALS: BP 145/81; TEMP 97.5; O2SAT 95
[2022-12-20] MEDS ORDERED: ACETAMINOPHEN 500 MG TAB PO ONE (10:00)
== END 2022-12-20 11:28 | disposition home or self-care (01) ==
LOC: M ED 07:11
DX: S60.221A Contusion of right hand, initial encounter (principal); W01.0XXA Fall on same level from slipping, tripping and stumbling without subsequent striking against object, initial encounter; I10 Essential (primary) hypertension; I25.2 Old myocardial infarction; Z86.79 Personal history of other diseases of the circulatory system; Z79.82 Long term (current) use of aspirin; Z79.02 Long term (current) use of antithrombotics/antiplatelets; Z79.811 Long term (current) use of aromatase inhibitors; Z79.899 Other long term (current) drug therapy

== ENCOUNTER 2023-01-20 13:34 | Emergency (ER) | payer OTHER ==
[~2023-01-20] VITALS: Ht 162.6 cm; Wt 86.8 kg
[2023-01-20 13:35] VITALS: TEMP 98.2
[2023-01-20 18:09] VITALS: BP 154/98; O2SAT 98
== END 2023-01-20 19:36 | disposition home or self-care (01) ==
LOC: M ED 13:34
DX: M25.512 Pain in left shoulder (principal); I25.2 Old myocardial infarction; I10 Essential (primary) hypertension; M54.50 Low back pain, unspecified; F41.9 Anxiety disorder, unspecified; F32.A Depression, unspecified; K21.9 Gastro-esophageal reflux disease without esophagitis; N18.30 Chronic kidney disease, stage 3 unspecified; Z86.73 Personal history of transient ischemic attack (TIA), and cerebral infarction without residual deficits; Z79.82 Long term (current) use of aspirin; Z79.02 Long term (current) use of antithrombotics/antiplatelets; Z79.811 Long term (current) use of aromatase inhibitors; Z79.899 Other long term (current) drug therapy

== ENCOUNTER → 2023-05-06 | Outpatient (REF) | payer OTHER ==
[2023-05-06 13:50] LABS: CREATININE, URINE 41.1 MG/DL; MAU/CREAT RATIO 9.7 MCG/MG (0.0-30.0)
[2023-05-06 19:19] LABS: ALBUMIN 3.5 G/DL (3.2-5.2); BILIRUBIN,TOTAL 0.7 MG/DL (0.3-1.2); CHOLESTEROL RISK RATIO 4.43 (<5); CREATININE FOR GFR 1.19 MG/DL (0.55-1.30); GLOMERULAR FILTRATION RATE 47.9 (>45); HDL CHOLESTEROL 47.8 MG/DL (>40); LDL CHOLESTEROL 125.8 MG/DL (<100); NON-HDL-C 164.2 MG/DL; POTASSIUM SERUM 4.8 MMOL/L (3.5-5.1); TOTAL PROTEIN 6.8 G/DL (5.7-8.2)
[2023-05-06 19:22] LABS: THYROID STIMULATING HORMONE 3.123 uIU/ML (0.55-4.78)
[2023-05-06 19:27] LABS: HEMOGLOBIN A1c 7.6 % (4.0-6.0)
== END ==
LOC: M LAB REF 11:51
PROVIDERS: ATTEND Family Medicine Addiction Medicine
DX: E11.9 Type 2 diabetes mellitus without complications (principal)

== ENCOUNTER 2023-07-25 09:36 | Emergency (ER) | payer OTHER ==
[~2023-07-25] VITALS: Ht 167.6 cm; Wt 85.8 kg
[2023-07-25 12:04] VITALS: BP 124/73; TEMP 98.4; O2SAT 96
== END 2023-07-25 12:11 | disposition home or self-care (01) ==
LOC: M ED 09:36
DX: S09.90XA Unspecified injury of head, initial encounter (principal); W20.8XXA Other cause of strike by thrown, projected or falling object, initial encounter; N18.30 Chronic kidney disease, stage 3 unspecified; I10 Essential (primary) hypertension; E03.9 Hypothyroidism, unspecified; Z86.73 Personal history of transient ischemic attack (TIA), and cerebral infarction without residual deficits; Y92.009 Unspecified place in unspecified non-institutional (private) residence as the place of occurrence of the external cause; Y93.9 Activity, unspecified; Y99.9 Unspecified external cause status; Z79.01 Long term (current) use of anticoagulants; Z79.82 Long term (current) use of aspirin; Z79.02 Long term (current) use of antithrombotics/antiplatelets; Z79.811 Long term (current) use of aromatase inhibitors; Z79.891 Long term (current) use of opiate analgesic; Z79.899 Other long term (current) drug therapy

== ENCOUNTER 2023-08-07 19:35 | Emergency (ER) | payer OTHER ==
[2023-08-07] MEDS: NS 1,000 ML IV ONE (10:00)
[2023-08-07 21:06] LABS: RSV AMPLIFICATION NEGATIVE (NEGATIVE)
[2023-08-07 21:31] VITALS: TEMP 98
[2023-08-07 21:37] LABS: BASO # 0.1 10^3/uL (0.0-0.2); BASO % 0.7 % (0.0-1.0); EOS # 0.2 10^3/uL (0.0-0.5); EOS % 1.2 % (0.0-3.0); HEMATOCRIT 50.1 % (36.0-47.0); LYMPH # 2.2 10^3/uL (1.5-5.0); LYMPH % 15.1 % (24.0-44.0); MEAN CORPUSCULAR HEMOGLOBIN 29.9 pg (27.0-33.0); MEAN CORPUSCULAR HGB CONC 33.9 g/dl (32.0-36.5); MEAN CORPUSCULAR VOLUME 88.2 fl (80.0-96.0); MONO # 0.9 10^3/uL (0.0-0.8); MONO % 6.4 % (2.0-8.0); NEUTROPHILS # 11.2 10^3/uL (1.5-8.5); NEUTROPHILS % 76.1 % (36.0-66.0); PLATELET COUNT, AUTOMATED 262 10^3/uL (150-450); RED BLOOD COUNT 5.68 10^6/uL (4.00-5.40); WHITE BLOOD COUNT 14.7 10^3/uL (4.0-10.0)
[2023-08-07 22:10] LABS: LIPASE 42 U/L (12-53)
[2023-08-07 22:15] LABS: ALBUMIN 3.9 G/DL (3.2-5.2); ALKALINE PHOSPHATASE 201 U/L (46-116); ALT/SGPT 13 U/L (7.0-40); AST/SGOT < 8 U/L (<34); BILIRUBIN,DIRECT 0.2 MG/DL (<0.4); BILIRUBIN,TOTAL 0.9 MG/DL (0.3-1.2); BLOOD UREA NITROGEN 27 MG/DL (9-23); CALCIUM LEVEL 9.4 MG/DL (8.3-10.6); CARBON DIOXIDE LEVEL 36 MMOL/L (20-31); CHLORIDE LEVEL 89 MMOL/L (98-107); GLOMERULAR FILTRATION RATE 36.5 (>39); GLUCOSE, FASTING 281 MG/DL (74-106); POTASSIUM SERUM 2.8 MMOL/L (3.5-5.1); SODIUM LEVEL 133 MMOL/L (136-145); TOTAL PROTEIN 7.7 G/DL (5.7-8.2)
[2023-08-07] MEDS: POTASSIUM CHLORIDE 10% LIQ 20MEQ/15ML UDC PO ONE (22:48)
[2023-08-07 23:33] LABS: THYROID STIMULATING HORMONE 6.329 uIU/ML (0.55-4.78)
[2023-08-08] MEDS ORDERED: ISOVUE-370 76% 100ML VIAL As Ordered ONE (02:04)
[2023-08-08] MEDS ORDERED: CIPROFLOXACIN 500MG TABLET PO ONE (05:15)
[2023-08-08] MEDS: metroNIDAZOLE (FLAGYL) 500MG TABLET PO ONE (05:15)
[2023-08-08] MEDS ORDERED: CIPR-249 PO (05:16)
[2023-08-08] MEDS ORDERED: METR-265 PO (05:16)
[2023-08-08 05:30] VITALS: BP 130/69; O2SAT 96
== END 2023-08-08 05:51 | disposition home or self-care (01) ==
LOC: M ED 19:35
DX: A04.71 Enterocolitis due to Clostridium difficile, recurrent (principal); I25.2 Old myocardial infarction; I10 Essential (primary) hypertension; E78.5 Hyperlipidemia, unspecified; F41.9 Anxiety disorder, unspecified; F32.A Depression, unspecified; Z90.49 Acquired absence of other specified parts of digestive tract; Z86.79 Personal history of other diseases of the circulatory system; Z79.82 Long term (current) use of aspirin; Z79.02 Long term (current) use of antithrombotics/antiplatelets; Z79.891 Long term (current) use of opiate analgesic; Z79.811 Long term (current) use of aromatase inhibitors; Z79.899 Other long term (current) drug therapy
CPT/HCPCS: 74177; 80048; 80076; 83605; 83690; 84443; 85025; 87486; 87507; 87581; 87631; 87633; 87798; 87880; 96360; 96361; 99285; Q9967

== ENCOUNTER → 2023-09-09 | Outpatient (REF) | payer OTHER ==
[~2023-09-09] MED LIST changes: +CIPR-249 PO; +METR-265 PO
[2023-09-09 12:54] LABS: BASO # 0.1 10^3/uL (0.0-0.2); BASO % 0.7 % (0.0-1.0); EOS # 0.4 10^3/uL (0.0-0.5); EOS % 3.5 % (0.0-3.0); HEMOGLOBIN 14.6 g/dl (12.0-15.5); LYMPH % 16.7 % (24.0-44.0); MEAN CORPUSCULAR HGB CONC 33.2 g/dl (32.0-36.5); MEAN CORPUSCULAR VOLUME 90.5 fl (80.0-96.0); MONO # 0.8 10^3/uL (0.0-0.8); MONO % 6.2 % (2.0-8.0); NEUTROPHILS # 8.8 10^3/uL (1.5-8.5); NEUTROPHILS % 72.4 % (36.0-66.0); PLATELET COUNT, AUTOMATED 262 10^3/uL (150-450); RED BLOOD COUNT 4.86 10^6/uL (4.00-5.40); WHITE BLOOD COUNT 12.1 10^3/uL (4.0-10.0)
[2023-09-09 13:18] LABS: ALBUMIN 3.7 G/DL (3.2-5.2); BILIRUBIN,TOTAL 0.6 MG/DL (0.3-1.2); CALCIUM LEVEL 9.3 MG/DL (8.3-10.6); CREATININE FOR GFR 1.58 MG/DL (0.55-1.30); GLOMERULAR FILTRATION RATE 34.4 (>39); POTASSIUM SERUM 3.3 MMOL/L (3.5-5.1); TOTAL PROTEIN 7.2 G/DL (5.7-8.2)
== END ==
LOC: M LAB REF 11:36
PROVIDERS: ATTEND Family Medicine Addiction Medicine
DX: D75.1 Secondary polycythemia (principal); N28.9 Disorder of kidney and ureter, unspecified

== ENCOUNTER → 2023-09-10 | Outpatient (CLI) | payer OTHER | LOC: M RAD 09:49 | PROVIDERS: ATTEND Family Medicine Addiction Medicine | DX: M25.512 Pain in left shoulder (principal) ==

== ENCOUNTER 2024-03-15 17:46 | Inpatient (IN) | payer OTHER ==
[~2024-03-15] VITALS: Ht 160 cm; Wt 82.6 kg
[~2024-03-15 17:46] MED LIST changes: +DOXY-440 PO; -DOXY-444 PO; +FLUO-365 PO; -FLUO20CA22 PO; +ONDA-282 PO; +ONDA-284 PO; -ONDA4TAB6 PO; -ONDA8TAB8 PO
[2024-03-15 18:20] LABS: VENOUS BASE EXCESS -0.7 (-2.0-2.0); VENOUS HCO3 24.1 MMOL/L (23.0-27.0); VENOUS O2 SATURATION 88.7 % (60.0-80.0); VENOUS PARTIAL PRESSURE CO2 40.8 mmHg (38.0-50.0); VENOUS PARTIAL PRESSURE O2 53.6 mmHg (30.0-50.0); VENOUS STANDARD HCO3 23.6 MMOL/L; VENOUS TOTAL CO2 25.4 MMOL/L (24.0-28.0)
[2024-03-15 18:30] LABS: BASO # 0.1 10^3/uL (0.0-0.2); BASO % 0.8 % (0.0-1.0); EOS # 0.1 10^3/uL (0.0-0.5); EOS % 1.2 % (0.0-3.0); HEMATOCRIT 53.7 % (36.0-47.0); HEMOGLOBIN 17.9 g/dl (12.0-15.5); LYMPH # 1.2 10^3/uL (1.5-5.0); LYMPH % 10.7 % (24.0-44.0); MEAN CORPUSCULAR HEMOGLOBIN 28.8 pg (27.0-33.0); MEAN CORPUSCULAR HGB CONC 33.3 g/dl (32.0-36.5); MEAN CORPUSCULAR VOLUME 86.5 fl (80.0-96.0); MONO # 0.8 10^3/uL (0.0-0.8); MONO % 6.5 % (2.0-8.0); NEUTROPHILS # 9.3 10^3/uL (1.5-8.5); NEUTROPHILS % 80.4 % (36.0-66.0); PLATELET COUNT, AUTOMATED 193 10^3/uL (150-450); RED BLOOD COUNT 6.21 10^6/uL (4.00-5.40); WHITE BLOOD COUNT 11.6 10^3/uL (4.0-10.0)
[2024-03-15 18:50] LABS: ALBUMIN 3.9 G/DL (3.2-5.2); ALKALINE PHOSPHATASE 230 U/L (46-116); ALT/SGPT 16 U/L (7.0-40); AST/SGOT 10 U/L (<34); BILIRUBIN,DIRECT 0.2 MG/DL (<0.4); BILIRUBIN,TOTAL 0.9 MG/DL (0.3-1.2); BLOOD UREA NITROGEN 15 MG/DL (9-23); CALCIUM LEVEL 9.7 MG/DL (8.3-10.6); CARBON DIOXIDE LEVEL 23 MMOL/L (20-31); CHLORIDE LEVEL 101 MMOL/L (98-107); CREATININE FOR GFR 0.92 MG/DL (0.55-1.30); GLOMERULAR FILTRATION RATE > 60.0 (>39); GLUCOSE, FASTING 320 MG/DL (74-106); POTASSIUM SERUM 3.4 MMOL/L (3.5-5.1); SODIUM LEVEL 134 MMOL/L (136-145)
[2024-03-15 18:52] LABS: THYROID STIMULATING HORMONE 16.485 uIU/ML (0.55-4.78)
[2024-03-15 18:58] LABS: OSMOLALITY SERUM 307 MOSM/KG (280-301)
[2024-03-15] MEDS: KETOROLAC 30 MG/ML 1ML VIAL IV ONE (20:38)
[2024-03-15] MEDS ORDERED: ISOVUE-370 76% 100ML VIAL As Ordered ONE (21:20)
[2024-03-15] MEDS: NS 500 ML IV ONE (22:21)
[2024-03-15] MEDS: cefTRIAXone SOD 1 GM in D5W MINI-BAG PLUS 50 ML IV ONE (22:21)
[2024-03-16] MEDS ORDERED: MOM 30ML SUSPENSION UDC PO PRN (00:30)
[2024-03-16] MEDS ORDERED: GLUCAGON INJ 1MG VIAL SC PRN (00:30)
[2024-03-16] MEDS ORDERED: GLUCOSE 4 GM CHEW PO PRN (00:30)
[2024-03-16] MEDS ORDERED: MAALOX 30 ML SUSP *UDC PO PRN (00:30)
[2024-03-16] MEDS ORDERED: DEXTROSE 50% 50ML SYRINGE IV PRN (00:30)
[2024-03-16 01:10] LABS: HEMOGLOBIN A1c 7.7 % (4.0-6.0)
[2024-03-16 01:17] LABS: HEMATOCRIT 49.5 % (36.0-47.0); HEMOGLOBIN 16.1 g/dl (12.0-15.5)
[2024-03-16] MEDS: ACETAMINOPHEN 325 MG TAB PO PRN (01:53)
[2024-03-16] MEDS: KETOROLAC 30 MG/ML 1ML VIAL IV PRN ×2 (01:53→08:51)
[2024-03-16] MEDS: POTASSIUM CHLORIDE 10MEQ SR TABLET PO ONE (01:54)
[2024-03-16] MEDS: CARVedilol 12.5 MG TAB PO SCH (01:54)
[2024-03-16] MEDS ORDERED: JARD1TAB3 PO (01:59)
[2024-03-16] MEDS ORDERED: SYNT112T2 PO (01:59)
[2024-03-16] MEDS ORDERED: RANO500T2 PO (01:59)
[2024-03-16] MEDS ORDERED: HOME MED LIST COMPLETE! XX SCH (02:00)
[2024-03-16] MEDS: INSULIN LISPRO (NovoLOG) PER UNIT SC ONE (02:25)
[2024-03-16] MEDS: LIDOCAINE 5% (LIDODERM) PATCH TD SCH (04:30)
[2024-03-16 06:55] LABS: HEMOGLOBIN 16.2 g/dl (12.0-15.5); MEAN CORPUSCULAR HEMOGLOBIN 28.7 pg (27.0-33.0); MEAN CORPUSCULAR HGB CONC 33.1 g/dl (32.0-36.5); MEAN CORPUSCULAR VOLUME 86.7 fl (80.0-96.0); PLATELET COUNT, AUTOMATED 158 10^3/uL (150-450); RED BLOOD COUNT 5.65 10^6/uL (4.00-5.40); WHITE BLOOD COUNT 9.4 10^3/uL (4.0-10.0)
[2024-03-16 07:25] LABS: ALBUMIN 3.4 G/DL (3.2-5.2); ALKALINE PHOSPHATASE 196 U/L (46-116); ALT/SGPT 16 U/L (7.0-40); AST/SGOT 8 U/L (<34); BILIRUBIN,TOTAL 0.6 MG/DL (0.3-1.2); BLOOD UREA NITROGEN 17 MG/DL (9-23); CALCIUM LEVEL 8.9 MG/DL (8.3-10.6); CARBON DIOXIDE LEVEL 25 MMOL/L (20-31); CHLORIDE LEVEL 105 MMOL/L (98-107); CREATININE FOR GFR 0.94 MG/DL (0.55-1.30); GLOMERULAR FILTRATION RATE > 60.0 (>39); GLUCOSE, FASTING 237 MG/DL (74-106); MAGNESIUM LEVEL 2.1 MG/DL (1.8-2.4); POTASSIUM SERUM 3.7 MMOL/L (3.5-5.1); SODIUM LEVEL 138 MMOL/L (136-145); TOTAL PROTEIN 7.1 G/DL (5.7-8.2)
[2024-03-16] MEDS: DOCUSATE SODIUM 100MG CAPSULE PO SCH (08:51)
[2024-03-16] MEDS: POTASSIUM CHLORIDE 10MEQ SR TABLET PO SCH (08:51)
[2024-03-16] MEDS: INSULIN LISPRO (NovoLOG) PER UNIT SC SCH ×2 (08:52→20:55)
[2024-03-16] MEDS ORDERED: CEFDINIR 300 MG CAP (OMNICEF) PO SCH (09:00)
[2024-03-16] MEDS: ATORVASTATIN 20 MG TAB PO SCH (09:50)
[2024-03-16] MEDS: **hydrALAZINE HCL** 25 MG TAB PO SCH (11:14)
[2024-03-16] MEDS: RANOLAZINE 500MG ER TAB PO SCH (11:14)
[2024-03-16] MEDS: LEVOTHYROXINE 112MCG TABLET (0.112MG) PO SCH (11:14)
[2024-03-16 15:04] VITALS: BP 118/66; TEMP 97.2; O2SAT 91
[2024-03-16] MEDS: GABAPENTIN 100 MG CAP PO SCH (16:29)
[2024-03-16] MEDS: valACYclovir HCL 500 MG TAB PO SCH (16:30)
[2024-03-16 20:04] VITALS: BP 119/65; TEMP 97.9; O2SAT 91
[2024-03-17 00:12] VITALS: BP 130/65
[2024-03-17 03:43] VITALS: BP 128/74; TEMP 97.7; O2SAT 93
[2024-03-17 06:12] LABS: HEMATOCRIT 46.5 % (36.0-47.0); HEMOGLOBIN 15.1 g/dl (12.0-15.5); MEAN CORPUSCULAR HEMOGLOBIN 28.5 pg (27.0-33.0); MEAN CORPUSCULAR HGB CONC 32.5 g/dl (32.0-36.5); MEAN CORPUSCULAR VOLUME 87.7 fl (80.0-96.0); PLATELET COUNT, AUTOMATED 126 10^3/uL (150-450)
[2024-03-17 06:22] LABS: ALBUMIN 3.1 G/DL (3.2-5.2); ALKALINE PHOSPHATASE 171 U/L (46-116); ALT/SGPT 13 U/L (7.0-40); AST/SGOT < 8 U/L (<34); BILIRUBIN,TOTAL 0.7 MG/DL (0.3-1.2); BLOOD UREA NITROGEN 21 MG/DL (9-23); CALCIUM LEVEL 9.2 MG/DL (8.3-10.6); CARBON DIOXIDE LEVEL 25 MMOL/L (20-31); CHLORIDE LEVEL 104 MMOL/L (98-107); CREATININE FOR GFR 1.07 MG/DL (0.55-1.30); GLUCOSE, FASTING 215 MG/DL (74-106); POTASSIUM SERUM 4.3 MMOL/L (3.5-5.1); SODIUM LEVEL 135 MMOL/L (136-145); TOTAL PROTEIN 6.5 G/DL (5.7-8.2)
[2024-03-17 09:32] VITALS: BP 128/74
[2024-03-17 12:00] VITALS: BP 124/71; TEMP 97.3; O2SAT 94
[2024-03-17] MEDS ORDERED: NEUR100C PO (12:09)
[2024-03-17] MEDS ORDERED: ECOT81TA5 PO (12:09)
[2024-03-17] MEDS ORDERED: VALA1TAB5 PO (12:09)
[2024-03-17] MEDS ORDERED: ACET-897 PO (12:16)
== END 2024-03-17 13:21 | disposition home or self-care (01) | DRG 372 ==
LOC: M ED 17:46 → M ED INP 23:52 → M MSPAV 03-16 15:03
PROVIDERS: ADMIT Internal Medicine; ATTEND Internal Medicine Nephrology
DX: K68.3 Retroperitoneal hematoma (principal); N39.0 Urinary tract infection, site not specified; I50.32 Chronic diastolic (congestive) heart failure; I13.0 Hypertensive heart and chronic kidney disease with heart failure and stage 1 through stage 4 chronic kidney disease, or unspecified chronic kidney disease; B01.89 Other varicella complications; E03.9 Hypothyroidism, unspecified; E11.22 Type 2 diabetes mellitus with diabetic chronic kidney disease; N18.30 Chronic kidney disease, stage 3 unspecified; I25.10 Atherosclerotic heart disease of native coronary artery without angina pectoris; E78.5 Hyperlipidemia, unspecified; G43.909 Migraine, unspecified, not intractable, without status migrainosus; E87.6 Hypokalemia; Z86.73 Personal history of transient ischemic attack (TIA), and cerebral infarction without residual deficits; E66.9 Obesity, unspecified; I25.2 Old myocardial infarction; Z95.2 Presence of prosthetic heart valve; G47.33 Obstructive sleep apnea (adult) (pediatric); F41.9 Anxiety disorder, unspecified; F32.A Depression, unspecified; Z86.16 Personal history of COVID-19; Z79.82 Long term (current) use of aspirin; Z79.899 Other long term (current) drug therapy; Z85.038 Personal history of other malignant neoplasm of large intestine; J32.0 Chronic maxillary sinusitis; R21 Rash and other nonspecific skin eruption

== ENCOUNTER → 2024-05-03 | Outpatient (CLI) | payer OTHER ==
[~2024-05-03] MED LIST changes: +ACET-897 PO; +ECOT81TA5 PO; +JARD1TAB3 PO; +NEUR100C PO; +RANO500T2 PO; +SYNT112T2 PO; +VALA1TAB5 PO
== END ==
LOC: M RAD 16:27
PROVIDERS: ATTEND Family Medicine Addiction Medicine
DX: M51.360 Other intervertebral disc degeneration, lumbar region with discogenic back pain only (principal)

== ENCOUNTER → 2024-06-27 | Outpatient (REF) | payer OTHER ==
[2024-06-27 18:02] LABS: ALBUMIN 3.1 G/DL (3.2-5.2); BILIRUBIN,TOTAL 0.6 MG/DL (0.3-1.2); CALCIUM LEVEL 9.1 MG/DL (8.3-10.6); CHOLESTEROL RISK RATIO 4.29 (<5); CREATININE FOR GFR 1.05 MG/DL (0.55-1.30); LDL CHOLESTEROL 141.2 MG/DL (<100); POTASSIUM SERUM 4.2 MMOL/L (3.5-5.1); THYROID STIMULATING HORMONE 3.757 uIU/ML (0.55-4.78); TOTAL PROTEIN 6.9 G/DL (5.7-8.2)
[2024-06-27 18:08] LABS: HEMOGLOBIN A1c 7.7 % (4.0-6.0)
[2024-06-27 18:16] LABS: CREATININE, URINE 84.7 MG/DL; MALB URINE SIEMENS < 3.0 MG/L
== END ==
LOC: M LAB REF 16:17
PROVIDERS: ATTEND Family Medicine Addiction Medicine
DX: E11.69 Type 2 diabetes mellitus with other specified complication (principal)

== ENCOUNTER → 2024-08-10 | Outpatient (CLI) | payer MEDICARE | LOC: M RAD 09:42 | PROVIDERS: ATTEND Family Medicine Addiction Medicine | DX: M25.551 Pain in right hip (principal) ==

== ENCOUNTER → 2025-01-18 | Outpatient (REF) | payer OTHER ==
[~2025-01-18] MED LIST changes: -HYDR28CR33 TOP; +HYDR28CR52 TOP; +TOPI-257 PO; -TOPI100T9 PO
[2025-01-18 12:42] LABS: ALT/SGPT 19.0 U/L (7.0-40); AST/SGOT 17.0 U/L (<34); CALCIUM LEVEL 8.5 MG/DL (8.3-10.6); CARBON DIOXIDE LEVEL 29.0 MMOL/L (20-31); CHLORIDE LEVEL 102.0 MMOL/L (98-107); CHOLESTEROL LEVEL 279.0 MG/DL (<200); CHOLESTEROL RISK RATIO 5.8 (<5); CREATININE FOR GFR 0.92 MG/DL (0.55-1.30); GLOMERULAR FILTRATION RATE 66.6 (>39); LDL CHOLESTEROL 183.3 MG/DL (<100); NON-HDL-C 230.9 MG/DL; POTASSIUM SERUM 3.1 MMOL/L (3.5-5.1); SODIUM LEVEL 144.0 MMOL/L (136-145); TRIGLYCERIDES LEVEL 238.0 MG/DL (<150)
[2025-01-18 13:11] LABS: ESTIMATED AVERAGE GLUCOSE 220.0 MG/DL (60-110)
== END ==
LOC: M LAB REF 11:53
PROVIDERS: ATTEND Family Medicine Addiction Medicine
DX: E11.69 Type 2 diabetes mellitus with other specified complication (principal)

== ENCOUNTER 2025-05-07 22:50 | Emergency (ER) | payer OTHER ==
[~2025-05-07] VITALS: Ht 160 cm; Wt 80.4 kg
[2025-05-08] MEDS: IBUPROFEN 800 MG TAB PO ONE (00:32)
[2025-05-08] MEDS ORDERED: IBUP600T42 PO (00:51)
[2025-05-08 00:53] VITALS: BP 149/72; TEMP 97.2; O2SAT 97
== END 2025-05-08 00:54 | disposition home or self-care (01) ==
LOC: M ED 22:50
DX: S40.011A Contusion of right shoulder, initial encounter (principal); S70.01XA Contusion of right hip, initial encounter; W01.198A Fall on same level from slipping, tripping and stumbling with subsequent striking against other object, initial encounter; M19.011 Primary osteoarthritis, right shoulder; I10 Essential (primary) hypertension; Y92.009 Unspecified place in unspecified non-institutional (private) residence as the place of occurrence of the external cause; Y93.89 Activity, other specified; Y99.9 Unspecified external cause status; Z79.1 Long term (current) use of non-steroidal anti-inflammatories (NSAID); Z79.82 Long term (current) use of aspirin; Z79.899 Other long term (current) drug therapy; Z79.02 Long term (current) use of antithrombotics/antiplatelets

== ENCOUNTER → 2025-06-05 | Outpatient (REF) | payer OTHER ==
[~2025-06-05] MED LIST changes: +IBUP600T42 PO
== END ==
LOC: M LAB REF 11:26
PROVIDERS: ATTEND Nurse Practitioner Family
DX: R19.7 Diarrhea, unspecified (principal); A02.0 Salmonella enteritis